=== PATIENT | male | born 1930 | race Caucasian/White ===

== ENCOUNTER 2016-12-01 09:11 | Emergency (ER) | payer MEDICARE, OTHER ==
[2016-12-01 09:49] VITALS: BP 127/67
[2016-12-01] MEDS ORDERED: Iopamidol 755 Mg/ML 75 ML Bottle IV ONE (10:25)
[2016-12-01] MEDS ORDERED: Sodium Chloride 0.9% 1,000 ML IV ONE (10:34)
[2016-12-01] MEDS ORDERED: Sodium Chloride 0.9% 10 ML Syringe FLUSH PRN (12:14)
--- NOTE | 2016-12-02 08:30 | ER ---
DATE SEEN: 12/01/2016 TIME SEEN: The patient was seen at 0915 hours. CHIEF COMPLAINT: Laid on the floor 6 to 10 hours, slipped off the couch, unable to get up, weakness, status post 11/29/2016 fall, left head trauma, left chest contusion, left chest pain, and left shoulder discomfort. HISTORY OF PRESENT ILLNESS: This pleasant 86-year-old man was brought in by son for further evaluation of the left chest pain, which he describes 1/10 in intensity since his injury 11/29/2016. He was seen at 11/29/2016 [facility]. Chest x-ray was done, no evidence for fracture noted. Laceration repair was performed at left lateral orbit, between the orbit and the ear. There is trace of drainage to the left lateral orbit. He is on Levaquin 250 mg daily. The patient denies headache, dizziness, paresis, weakness, paresthesia, vomiting, shortness of breath, abdominal discomfort, nausea, vomiting, diarrhea, back pain, neck pain, and weakness of lower extremities. He notes his upper extremities are weak. SOCIAL HISTORY: . He is nonsmoker. Works for [employer] 40 years. The patient lives in [place]. Three sons and one daughter, all healthy. PAST MEDICAL HISTORY: Myocardial infarction 1972, CABG, hypertension. PREVIOUS SURGERY: Bilateral total hip arthroplasty. The patient denies any compromise in vision. REVIEW OF SYSTEMS: HEENT: Denies headache, sinus drainage. He has blood from the nose, oropharynx pain or discomfort, difficulty with chewing or eating. CARDIORESPIRATORY: Denies recent irregular rhythm. He is known to have atrial fibrillation in the past. He is on a beta-julian. Metoprolol 50 mg daily, but otherwise not using anticoagulants. GI: Denies nausea, vomiting, diarrhea, constipation, or change of bowels. : Denies frequency, urgency, dysuria, or difficulty passing urine. MUSCULOSKELETAL: Weakness, upper extremities. Mild weakness lower extremities just recently after the fall. Denies paresis. PSYCHIATRIC: Denies depression. MEDICATIONS: 1. Metoprolol. 2. Lisinopril. 3. Simvastatin. 4. Brimonidine tartrate eyedrops, both eyes. 5. Bimatoprost (Lumigan 0.01% ophthalmic solution). 6. Levofloxacin 250 mg daily for 2 days. Did not take his medicine today. PHYSICAL EXAMINATION: VITAL SIGNS: Blood pressure 127/67, heart rate 77, respirations 20, oxygen saturation 95%, and temperature is 36.5 degrees centigrade. GENERAL: Alert man, in mild distress. He complains that his chest discomfort is about 1/10 in intensity presently. Otherwise, it was more last night. HEENT: PERRLA intact. Previous cataract surgery noted. Eyegrounds negative. Left facial ecchymosis from the left mid infraorbital region extending to the zygoma and the left lateral temporal region, anti-tragal region. Mild tenderness. No crepitus. No step-off. No lid lag or traction on the eye. EOMs normal. Nares negative. Pharynx without abnormality. No TMJ discomfort. NECK: No bruits in the neck. LUNGS: Clear to auscultation. HEART: S1, S2. No murmur. Left chest wall discomfort 6, 7, 8, and 9 anterior axillary line moderately tender. Left 11, 10, and 9 costochondral discomfort. No crepitus or stepoff. ABDOMEN: Nontender. No guarding. No abdominal discomfort. No megaly. EXTREMITIES: Without edema. Slight weakness to the left and right lower extremities. No pronator drift. He notes his left shoulder because previous shoulder injury, has decreased range of motion, which is not new, it is baseline for him. Hand tax technician bilaterally intact. Laceration to the dorsum of the left hand is Steri-Stripped and the right dorsum of the distal radius laceration is Steri-Stripped. LABORATORY FINDINGS: Troponin negative 0.05. CPK elevated 513. Alkaline phosphatase is low 48, AST slightly high at 35. Sodium 138, potassium 4.1, chloride 109, carbon dioxide 20, BUN 35, creatinine 1.6, GFR estimated 41, BUN and creatinine ratio 21.9, and glucose 130. INR 1.05 and PT 10.6. WBC 12,300, PMNs 81, lymphocytes 11, monos 8, platelets 199,000, and hemoglobin 13.8. DIAGNOSTIC STUDIES: CAT scan, 1 cm hyperdense focus left posterior aspect of the caudate head in the region of the anterior limb of the left internal capsule, suspicious for small intraparenchymal bleed, hyperdense intracranial mass is a secondary consideration. No sign of ischemic infarct, generalized volume loss, minor chronic small-vessel ischemic changes. CT of cervical spine; no acute cervical fracture, degenerative disk and joint disease is present within the cervical spine. See x-ray reports. CT chest; aortic aneurysm ascending aorta 4.6 cm, atherosclerosis noted thoracic aorta, coronary artery disease calcifications, previous sternotomy. No effusion, no mediastinal hematoma. Nonenlarged mediastinal and hilar nodes. 5 cm consolidative opacity within the right upper lung with differential considered lung malignancy, infiltrate, or atelectasis. Status was discussed with Dr. Hilario, , transferred by ambulance to [facility], arrangements made, family informed the patient's status and the findings. DIAGNOSES: 1. Intracerebral bleed. 2. Right upper lung mass/atelectasis, pneumonia. 3. Elevated creatinine 1.6 and BUN 35, chronic kidney disease stage III. 4. Mild leukocytosis without platelet abnormality, no left shift. 5. Mild dehydration. 6. Rhabdomyolysis with creatine kinase 513. Rhabdomyolysis is secondary to lying on the floor for 6 to 10 hours. 7. Urinalysis normal with few bacteria. 8. Right knee abrasion. 9. Left infraorbital and lateral orbit contusion laceration with laceration repair, mild serosanguineous fluid noted left most lateral portion of the laceration repair. 10.No evidence for cervical spine fracture with mild degenerative cervical spine disease. 11.Sternotomy incision, old healed coronary artery bypass graft scar. 12.Previous myocardial infarction, age 71. 13.Hypertension, treated, stable. 14.He is . 15.Family support, daughter and 2 sons present in the emergency department. Arrangements made for transfer by ambulance. /[id number] LUIS/LARS
== END 2016-12-01 12:44 ==
LOC: FB.ED 09:11
DX: S06.360A Traumatic hemorrhage of cerebrum, unspecified, without loss of consciousness, initial encounter (principal); T79.6XXA Traumatic ischemia of muscle, initial encounter; S01.81XA Laceration without foreign body of other part of head, initial encounter; S80.211A Abrasion, right knee, initial encounter; S22.42XA Multiple fractures of ribs, left side, initial encounter for closed fracture; S61.412A Laceration without foreign body of left hand, initial encounter; S51.811A Laceration without foreign body of right forearm, initial encounter; W08.XXXA Fall from other furniture, initial encounter; Y92.9 Unspecified place or not applicable; R91.8 Other nonspecific abnormal finding of lung field; I71.2 Thoracic aortic aneurysm, without rupture; I70.0 Atherosclerosis of aorta; I25.10 Atherosclerotic heart disease of native coronary artery without angina pectoris; I12.9 Hypertensive chronic kidney disease with stage 1 through stage 4 chronic kidney disease, or unspecified chronic kidney disease; N18.4 Chronic kidney disease, stage 4 (severe); Z95.1 Presence of aortocoronary bypass graft; J18.9 Pneumonia, unspecified organism; D72.829 Elevated white blood cell count, unspecified; E86.0 Dehydration; I25.2 Old myocardial infarction; M50.30 Other cervical disc degeneration, unspecified cervical region; Z96.643 Presence of artificial hip joint, bilateral; Z79.899 Other long term (current) drug therapy
CPT/HCPCS: 36415; 70470; 71250; 72125; 80053; 81001; 82550; 84484; 85025; 85610; 93005; 96360; 96361; 99284; 99285; J7040; Q9967

== ENCOUNTER 2019-02-22 18:16 | Emergency (ER) | payer MEDICARE, OTHER ==
[2019-02-22] MEDS ORDERED: traMADol 50 MG Tab PO ONE (18:17)
[2019-02-22] MEDS ORDERED: Ketorolac 30 MG/ML SDV IVPUSH ONE (18:27)
--- NOTE | 2019-02-22 18:32 | EDM.PDOC ---
ED HPI GENERAL MEDICAL PROBLEM - General Chief Complaint: Lower Extremity Injury/Pain Stated Complaint: L HIP PAIN Time Seen by Provider: 02/22/19 18:16 Source of Information: Reports: Patient, Family History Limitations: Reports: No Limitations - History of Present Illness INITIAL COMMENTS - FREE TEXT/NARRATIVE: 88 y,o,w,m came to the ED one day after he pain at his left inguinal area when walking home from [employer]. pt felt sudden stabbing pain at his left inguinal area , which is getting worse when extending his left leg, no direct trauma. No dysuria. Pt had a left inguinal hernia repair in the distant past. No N/V/D, no CP or SOB or any other acute med issues. BP 135/56 RR 18 Pulse ox 95% on RA Pulse 89 Temp 36.8 Onset Date: 02/21/19 Onset Time: 09:00 Duration: Day(s):, Getting Worse, Intermittent Location: Reports: Pelvis (left groin, radiating to left lower extremity) Quality: Reports: Ache, Burning, Dull, Pressure Severity: Moderate Improves with: Reports: Rest Worsens with: Reports: Movement Context: Reports: Other Associated Symptoms: Reports: No Other Symptoms - Related Data Allergies Allergy/AdvReac Type Severity Reaction Status Date / Time No Known Allergies Allergy Verified 12/01/16 09:58 Home Meds: Home Meds Bimatoprost [LUMIGAN 0.01% Ophth Soln] 1 drop EYEBOTH DAILY 12/01/16 [History] Brimonidine Tartrate [Alphagan P 0.1% Ophth Soln] 1 drop EYEBOTH TID 12/01/16 [ History] Lisinopril 10 mg PO DAILY 12/01/16 [History] Metoprolol Tartrate 50 mg PO DAILY 12/01/16 [History] Simvastatin [Zocor] 80 mg PO BEDTIME 12/01/16 [History] Past Medical History HEENT History: Reports: Impaired Vision Cardiovascular History: Reports: Afib, Bypass, [place] - Past Surgical History Musculoskeletal Surgical History: Reports: Hip Replacement, Other (See Below) Social & Family History - Caffeine Use Caffeine Use: Reports: Coffee Review of Systems - Review of Systems Review Of Systems: See Below Constitutional: Reports: No Symptoms Eyes: Reports: No Symptoms Ears: Reports: No Symptoms Nose: Reports: No Symptoms Mouth/Throat: Reports: No Symptoms Respiratory: Reports: No Symptoms Cardiovascular: Reports: No Symptoms GI/Abdominal: Reports: Other (left lower abd. pain) Genitourinary: Reports: No Symptoms Musculoskeletal: Reports: Other (left lower abd/pelvic pain) Skin: Reports: No Symptoms Neurological: Reports: No Symptoms Psychiatric: Reports: No Symptoms ED EXAM, GENERAL - Physical Exam Exam: See Below Exam Limited By: No Limitations General Appearance: Alert, WD/WN, Moderate Distress Eye Exam: Bilateral Eye: Normal Inspection Ears: Normal External Exam Ear Exam: Bilateral Ear: Auricle Normal Nose: Normal Inspection, Normal Mucosa, No Blood Throat/Mouth: Normal Inspection, Normal Lips, Normal Voice, No Airway Compromise Head: Atraumatic, Normocephalic Neck: Normal Inspection, Supple, Non-Tender Respiratory/Chest: No Respiratory Distress, Lungs Clear, Normal Breath Sounds, Chest Non-Tender Cardiovascular: Normal Peripheral Pulses, Regular Rate, Rhythm, No Edema, No Gallop, No Murmur Peripheral Pulses: 2+: Femoral (L) GI/Abdominal: Normal Bowel Sounds, Soft, Pelvis Stable, Tender (left lower groin ) (Male) Exam: Hernia (tenderness left inguinal area) Rectal (Males) Exam: Deferred Back Exam: Normal Inspection, Full Range of Motion Extremities: Normal Inspection, Limited Range of Motion (of left lower extremity due to pain at the left inguinal legament when flexing left hip. ) Neurological: Alert, Oriented, CN II-XII Intact, Normal Cognition, Abnormal Gait (because of left groin pain) Psychiatric: Normal Affect, Normal Mood Skin Exam: Warm, Dry, Intact, Normal Color, No Rash Lymphatic: No Adenopathy Course - Vital Signs Text/Narrative:: 88 y,o,w,m came to the ED one day after he pain at his left inguinal area when walking home from [employer]. pt felt sudden stabbing pain at his left inguinal area , which is getting worse when extending his left leg, no direct trauma. No dysuria. Pt had a left inguinal hernia repair in the distant past. No N/V/D, no CP or SOB or any other acute med issues. BP 135/56 RR 18 Pulse ox 95% on RA Pulse 89 Temp 36.8 PE: WNWD W M with left inguinal pain Imaging: Pending Labs: Pending Impression: Left inguinal pain DDX: direct / indirect inguinal hernia, scrotal hernia. impingement of a femoral nerve, musculoskeletal. Lymphadenopathy Tx: Toradol Reexam: Improved Pt was signed out to Dr. Bloom at 7 pm due to shift changes pending Labs and Imaging studies Last Recorded V/S: Last Vital Signs Temp 36.7 C 02/22/19 18:20 Pulse 81 02/22/19 19:30 Resp 18 02/22/19 19:30 BP 143/59 H 02/22/19 19:30 Pulse Ox 95 02/22/19 19:30 - Orders/Labs/Meds Orders: Active Orders 24 hr Category Date Time Status Abdomen Pelvis w Cont [CT] Stat Exams 02/22/19 18:25 Taken Labs: Laboratory Tests 02/22/19 02/22/19 02/22/19 Range/Units 18:40 18:40 18:40 WBC 19.6 H (4.5-12.0) X10-3/uL RBC 4.50 (4.30-5.75) x10(6)uL Hgb 14.8 (13.5-17.8) g/dL Hct 42.3 (30.0-51.3) % MCV 93.9 (80-96) fL MCH 32.9 (27.7-33.6) pg MCHC 35.0 (32.2-35.4) g/dL RDW 12.6 (11.5-15.5) % Plt Count 195 (125-369) X10(3)uL MPV 7.9 (7.4-10.4) fL Add Manual Diff Yes Neutrophils % (Manual) 82 (46-82) % Band Neutrophils % 6 (0-6) % Lymphocytes % (Manual) 7 L (13-37) % Monocytes % (Manual) 5 (4-12) % PT 9.9 (8.7-11.1) INR 1.02 (0.89-1.13) Sodium 139 (135-145) mmol/L Potassium 4.4 (3.5-5.3) mmol/L Chloride 105 (100-110) mmol/L Carbon Dioxide 24 (21-32) mmol/L BUN 31 H (7-18) mg/dL Creatinine 1.7 H (0.70-1.30) mg/dL Est Cr Clr Drug Dosing TNP Estimated GFR (MDRD) 38 L (>60) BUN/Creatinine Ratio 18.2 (9-20) Glucose 121 H (80-116) mg/dL Calcium 8.9 (8.6-10.2) mg/dL Meds: Medications Discontinued Medications Generic Name Dose Route Start Last Admin Trade Name Trey PRN Reason Stop Dose Admin Ketorolac Tromethamine 15 mg 02/22/19 18:27 02/22/19 18:52 Toradol IVPUSH 02/22/19 18:28 15 mg ONETIME ONE Administration Departure - Departure Time of Disposition: 21:00 Disposition: Still A Patient 30 Condition: Fair Clinical Impression: Groin pain Qualifiers: Laterality: left Qualified Code(s): R10.32 - Left lower quadrant pain - Discharge Information Instructions: Tramadol tablets, Muscle Strain, [id number] Referrals: Gabriele Madrigal MD [Primary Care Provider] - Forms: ED Department Discharge Additional Instructions: Ice and elevate. Return to ER with worse symptoms. - My Orders Last 24 Hours: My Active Orders 02/22/19 18:25 Abdomen Pelvis w Cont [CT] Stat - Assessment/Plan Last 24 Hours: My Active Orders 02/22/19 18:25 Abdomen Pelvis w Cont [CT] Stat
[2019-02-22 20:00] VITALS: BP 143/59; PULSE 81
--- NOTE | 2019-02-24 08:23 | ER ---
DATE SEEN: 02/22/2019 ADDENDUM: Please note that I saw this patient after Dr. Coronel had seen him. He complains of pain in the left groin that started yesterday on and off, sharp, radiates down to the leg. No trauma. He did walk to sabianism on Friday. REVIEW OF SYSTEMS: No urinary symptoms. No scrotal pain, nausea, vomiting, or diarrhea. Denies constipation. ALLERGIES: None. PAST MEDICAL HISTORY: Hyperlipidemia, hypertension. PHYSICAL EXAMINATION: VITAL SIGNS: Blood pressure 143/59 and pulse is 89. GENITALIA: Left groin showed no obvious swelling. There is tenderness to palpation of the inguinal region. No visible bulge External genitalia are normal to inspection. No evidence of a hernia. LABORATORY DATA: White cell count 19.6, creatinine 1.7. CT of the abdomen and pelvis without contrast showed no obvious source of the pain and no hernia. IMPRESSIONS: Left inguinal pain.Lymphocytosis PLAN: Tramadol 50 mg b.i.d. p.r.n., ice or ibuprofen, rest, and follow up with Dr. Madrigal in the next 1 to 2 days for consideration of alternative diagnosis if symptoms persist /[id number] GI/LARS TREVINO
== END 2019-02-22 20:55 | disposition home or self-care (01) ==
LOC: FB.ED 18:16
DX: R10.32 Left lower quadrant pain (principal); D72.820 Lymphocytosis (symptomatic); I10 Essential (primary) hypertension; I25.2 Old myocardial infarction; E78.5 Hyperlipidemia, unspecified; I48.91 Unspecified atrial fibrillation; Z95.1 Presence of aortocoronary bypass graft; Z79.899 Other long term (current) drug therapy
CPT/HCPCS: 36415; 74177; 80048; 85025; 85610; 96374; 99283; 99284; A9270; J1885

== ENCOUNTER 2019-02-23 12:30 | Observation (INO) | payer OTHER, MEDICARE ==
[2019-02-23] MEDS ORDERED: Sodium Chloride 0.9% 10 ML Syringe FLUSH PRN (13:13)
[2019-02-23] MEDS ORDERED: Brimonidine 0.1% Ophth Soln 5 ML Bottle EYEBOTH SCH (14:00)
[2019-02-23] MEDS ORDERED: Brimonidine 0.2% Ophth Soln 5 ML Bottle EYEBOTH SCH (14:30)
[2019-02-23] MEDS: Acetaminophen/HYDROcodone 325-5 MG Tab PO PRN ×2 (16:01→21:16)
--- NOTE | 2019-02-23 16:27 | HP ---
ADMISSION DATE: 02/23/2019 INFORMANT: History is from the patient and his daughter as well as Richard Jordan, his PA at [facility] in [place]. CHIEF COMPLAINT: Inguinal pain. HISTORY OF PRESENT ILLNESS: Mr. James is a very vigorous, healthy 88-year- old man who was in his normal state of health until Friday 2 days ago. He was walking home from [employer] and noticed a mild discomfort in the left groin. By the next day, he developed a severe sharp pain in the groin, painful with movements, especially of his left leg. He was seen in the emergency room and evaluation done. Laboratory tests included a white count of 19,600 with 82 segs, 6 bands, 7 lymphocytes, and 5 monos. BUN 31, creatinine 1.7. Urinalysis not done. He was discharged to home slightly more comfortable and asked to have followup in the clinic. He saw Richard Jordan in [facility] today, who repeated his white count and found it to be up to 25,000. Osman has not had any fever, chills, sweats, cough, dyspnea, or chest pain. Chest x-ray also done at the [facility] was read as right basilar infiltrate, possible pneumonia. PAST MEDICAL HISTORY: He has been quite healthy. He is status post bilateral total hip arthroplasties. He has had a previous left inguinal herniorrhaphy. He has chronic essential hypertension, hyperlipidemia, and glaucoma. He is also status post coronary artery bypass graft and had a past history of atrial fibrillation. MEDICATIONS: 1. Simvastatin 40 mg daily. 2. Metoprolol tartrate 25 mg b.i.d. 3. Lisinopril 10 mg daily. 4. Alphagan 1% one drop both eyes t.i.d. 5. Lumigan 0.01% one drop both eyes daily. ALLERGIES: None. HABITS: Nonsmoker and nondrinker. FAMILY AND SOCIAL HISTORY: The patient is accompanied by his daughter today. He lives by himself and is very active in his house doing a lot of mowing, walking, etc. REVIEW OF SYSTEMS: GENERAL: No seizure, syncope, or recent significant weight change. SKIN: Negative for rash. HEENT: No recent changes in hearing or vision. No sore throat or URI. No cough or purulent sputum. CARDIOVASCULAR: No chest pain. No dyspnea. No palpitations. ABDOMEN: No abdominal pain, nausea, change in bowel or bladder habits. GENITOURINARY: No hematuria or urgency. SKIN: No swelling or skin rash. PSYCHIATRIC: No mood instability or temperature intolerance. PHYSICAL EXAMINATION: GENERAL: He is alert, comfortable, and healthy, looks much younger than his age. VITAL SIGNS: Blood pressure 143/59, pulse 81 and regular, respirations normal, temperature 98.1, and O2 saturation 95% on room air. Weight 152 pounds reported by the patient. SKIN: Anicteric. Warm, dry without rash. HEENT: Show TMs to be clear. Pupils are equal and reactive. Oropharynx clear. NECK: Supple. Thyroid normal. LUNGS: Clear to the bases with excellent air movement. I could hear no rales at either side. HEART: Regular without murmur or gallop. ABDOMEN: Normal bowel sounds. Soft and nontender. No mass or organomegaly. Left groin exam reveals a fingertip-sized defect in the left groin and pressure here reproduces his pain. No bulge or herniation of contents is palpable. He has decreased range of motion of both hips, but internal and external rotation of the left hip does seem to reproduce his hip pain. EXTREMITIES: Show good pulses. No edema. NEUROLOGIC: Normal with the limitation of slightly decreased hip range of motion on the left. LABORATORY DATA: As mentioned today, white count was 25,000. Differential was not done. Pending labs included repeat CBC with differential, sedimentation rate, and CRP. ASSESSMENT: 1. Left inguinal pain, question femoral hernia, possible infected hip prosthesis. 2. Chronic essential hypertension. 3. Hyperlipidemia. 4. Glaucoma. 5. History of prostheses, bilateral hips. PLAN: Labs drawn and pending. I will ultrasound his femoral area to look for hernia. I have also asked Dr. Cabrera to consult on this and we will consider investigation for potential infected hip prosthesis if no hernias felt to be present. /[id number] RO/MODL
--- NOTE | 2019-02-23 17:25 | PCM.CONS ---
H&P History of Present Illness - General Date of Service: 02/23/19 Admit Problem/Dx: Admission Diagnosis/Problem Admission Diagnosis/Problem Pain Source of Information: Patient, Family, Old Records History Limitations: Reports: No Limitations - History of Present Illness Onset of Symptoms: Reports: Sudden Duration of Symptoms: Reports: Day(s): (2), Getting Worse Location: Reports: Lower Extremity, Left (groin) Quality: Reports: Sharp, Stabbing Improves with: Reports: None Worsens with: Reports: Movement Associated Symptoms: Reports: No Other Symptoms. Denies: Nausea/Vomiting - Related Data Allergies/Adverse Reactions: Allergies Allergy/AdvReac Type Severity Reaction Status Date / Time No Known Allergies Allergy Verified 12/01/16 09:58 Home Medications: Home Meds Bimatoprost [LUMIGAN 0.01% Ophth Soln] 1 drop EYEBOTH BEDTIME 12/01/16 [History] Brimonidine Tartrate [Alphagan P 0.1% Ophth Soln] 1 drop EYEBOTH TID 12/01/16 [ History] Lisinopril 5 mg PO DAILY 12/01/16 [History] Metoprolol Tartrate 25 mg PO BID 12/01/16 [History] Simvastatin [Zocor] 40 mg PO BEDTIME 12/01/16 [History] Vit A/Vit C/Vit E/Zinc/Copper [Preservision] 1 each PO DAILY 02/23/19 [History] Past Medical History HEENT History: Reports: Impaired Vision Cardiovascular History: Reports: Afib, Bypass, [place] Respiratory History: Reports: None Gastrointestinal History: Reports: None Genitourinary History: Reports: None Neurological History: Reports: None Psychiatric History: Reports: None Endocrine/Metabolic History: Reports: None Hematologic History: Reports: Blood Transfusion(s) Immunologic History: Reports: None Oncologic (Cancer) History: Reports: None Dermatologic History: Reports: None - Past Surgical History Musculoskeletal Surgical History: Reports: Hip Replacement, Other (See Below) Other Musculoskeletal Surgeries/Procedures:: bilat hip replacement Social & Family History - Family History Family Medical History: Noncontributory - Tobacco Use Smoking Status *Q: Never Smoker - Caffeine Use Caffeine Use: Reports: Coffee - Recreational Drug Use Recreational Drug Use: No H&P Review of Systems - Review of Systems: Review Of Systems: See Below General: Reports: Fever, Chills HEENT: Reports: No Symptoms Pulmonary: Reports: No Symptoms Cardiovascular: Reports: No Symptoms Gastrointestinal: Reports: No Symptoms. Denies: Abdominal Pain, Nausea, Vomiting Genitourinary: Reports: No Symptoms Musculoskeletal: Reports: Other (severe pain in left groin) Exam - Exam Exam: See Below - Vital Signs Weight: 154.4 kg - Exam General: Alert, Oriented Lungs: Clear to Auscultation, Normal Respiratory Effort Cardiovascular: Regular Rate, Regular Rhythm GI/Abdominal Exam: Normal Bowel Sounds, Soft, Non-Tender. No: Hernia, Mass (Male) Exam: No Hernia, Normal Inspection. No: Inguinal Lymphadenopathy, Scrotum Tenderness (L), Scrotum Tenderness (R) - Patient Data Lab Results Last 24 hrs: Laboratory Results - last 24 hr 02/23/19 02/23/19 Range/Units 14:25 14:25 WBC 25.8 H (4.5-12.0) X10-3/uL RBC 4.11 L (4.30-5.75) x10(6)uL Hgb 13.9 (13.5-17.8) g/dL Hct 38.5 (30.0-51.3) % MCV 93.6 (80-96) fL MCH 33.8 H (27.7-33.6) pg MCHC 36.1 H (32.2-35.4) g/dL RDW 12.7 (11.5-15.5) % Plt Count 172 (125-369) X10(3)uL MPV 7.9 (7.4-10.4) fL Add Manual Diff Yes Neutrophils % (Manual) 87 H (46-82) % Band Neutrophils % 5 (0-6) % Lymphocytes % (Manual) 4 L (13-37) % Monocytes % (Manual) 4 (4-12) % ESR 6 (0-15) mm/hr C-Reactive Protein 10.6 H* (0.5-0.9) mg/dL Result Diagrams: 02/23/19 14:25 Imaging Impressions Last 24 hrs: CT scan has artifact so left inguinal region is not clearly seen Left groin US today shows a circular area next to femoral vessels Consult PN Assessment/Plan Procedures: Procedures ASSAY OF CK (CPK) (12/01/16) ASSAY OF TROPONIN QUANT (12/01/16) COMPLETE CBC W/AUTO DIFF WBC (12/01/16) COMPREHEN METABOLIC PANEL (12/01/16) CT HEAD/BRAIN W/O & W/DYE (12/01/16) CT NECK SPINE W/O DYE (12/01/16) CT THORAX W/O DYE (12/01/16) ELECTROCARDIOGRAM TRACING (12/01/16) EMERGENCY DEPT VISIT (12/01/16) EMERGENCY DEPT VISIT (12/01/16) HYDRATE IV INFUSION ADD-ON (12/01/16) HYDRATION IV INFUSION INIT (12/01/16) PROTHROMBIN TIME (12/01/16) ROUTINE VENIPUNCTURE (12/01/16) URINALYSIS AUTO W/SCOPE (12/01/16) Problem List Initiated/Reviewed/Updated: Yes My Orders Last 24 Hours: Recommend expl laprascopic exam to rule out left hernia and repair if present. Increasing WBC is worrisome and there is no other obvious explanation. Patient and family agree to proceed
[2019-02-23] MEDS ORDERED: Lactated Ringers 1,000 ML IV ONE (17:40)
[2019-02-23] MEDS ORDERED: Ketorolac 30 MG/ML SDV IVPUSH ONE (17:40)
[2019-02-23] MEDS ORDERED: Rocuronium 50 MG/5 ML Vial IV ONE (17:40)
[2019-02-23] MEDS ORDERED: Midazolam 1 MG/ML 2 ML SDV IV ONE (17:40)
[2019-02-23] MEDS ORDERED: ePHEDrine 50 MG/ML SDV IV ONE (17:40)
[2019-02-23] MEDS ORDERED: ceFAZolin 1 GM Vial IV ONE (17:40)
[2019-02-23] MEDS ORDERED: Succinylcholine 200 MG/10 ML MDV IV ONE (17:40)
[2019-02-23] MEDS ORDERED: fentaNYL 100 MCG/2 ML SDV IV ONE (17:40)
[2019-02-23] MEDS ORDERED: Propofol 200 MG/20 ML SDV IV ONE (17:40)
--- NOTE | 2019-02-23 18:41 | PCM.OPNOTE ---
- General Post-Op/Procedure Note Date of Surgery/Procedure: 02/23/19 Operative Procedure(s): Expl Laprascope; removal of infarcted epiploic Appendage Findings: Above Pre Op Diagnosis: R Groin Pain Post-Op Diagnosis: Same Anesthesia Technique: General ET Tube Primary Surgeon: Guillermo Cabrera Anesthesia Provider: Felicia Salgado Pathology: Epiploic Appendage Complications: None Condition: Good
[2019-02-23] MEDS ORDERED: Acetaminophen/HYDROcodone 325-5 MG Tab PO PRN (18:47)
[2019-02-23] MEDS ORDERED: Morphine 2 MG/ML Syringe IVPUSH PRN (18:47)
[2019-02-23] MEDS ORDERED: LUMIGAN EYE DROPS EYEBOTH SCH (21:00)
[2019-02-23] MEDS ORDERED: SIMVASTATIN 80 MG PO SCH (21:00)
[2019-02-23] MEDS: BRIMONIDINE 0.1% EYEBOTH SCH (21:08)
[2019-02-23] MEDS: METOPROLOL TARTRATE 50 MG PO SCH (21:12)
--- NOTE | 2019-02-23 23:24 | OR ---
DATE OF OPERATION: 02/23/2019 SURGEON: Guillermo Cabrera MD PREOPERATIVE DIAGNOSIS: Left groin pain with leukocytosis. POSTOPERATIVE DIAGNOSIS: Infarcted epiploic appendage. PROCEDURE: Exploratory laparoscopy with removal of infarcted epiploic appendage. ANESTHESIA: General. DESCRIPTION OF PROCEDURE: The patient was brought to the operating room, where general endotracheal anesthesia was administered. His abdomen was prepped with ChloraPrep and draped sterilely. Prior to intubation, I did roll him onto his right side and his back and buttocks, groin, scrotum, and all visible areas of the skin appeared normal without any cellulitis or palpable masses. Even when the patient was asleep, I was finally able to evaluate his groin area well and was unable to feel any obvious inguinal or femoral hernia. His abdomen was prepped with ChloraPrep and draped sterilely. An infraumbilical incision was made and extended into the peritoneal cavity without difficulty. The Brent cannulator was introduced and pneumoperitoneum obtained. A 5 mm 30-degree camera was used to inspect the pelvis after he was placed in Trendelenburg position. Both inguinal areas appeared normal. I did place 2 more 5 mm trocars inferiorly to move the small bowel and omentum. At that time, I visualized an infarcted epiploic appendage approximately 8 mm in diameter that was again adjacent to the left inguinal canal. No hernias or other abnormalities such as diverticulitis were noted. The epiploic appendage did peel off the surrounding mesocolon and will be sent for pathology review. No bleeding occurred. The remaining exploration revealed normal peritoneal, omental, and bowel surfaces. The ports were removed under direct vision and remained hemostatic. Umbilical fascia was closed with [id number] 0 Vicryl. Skin was closed with 4-0 Vicryl subcuticular sutures. Benzoin and Steri-Strips were placed, and Band- Aids applied. The patient tolerated the procedure well and returned to recovery in stable condition. ESTIMATED BLOOD LOSS: None. /[id number] RUBENS/LARS
[2019-02-24] MEDS: Lactated Ringers 1,000 ML IV SCH ×2 (00:02→10:04)
[2019-02-24] MEDS: Acetaminophen/HYDROcodone 325-5 MG Tab PO PRN ×2 (03:10→07:18)
[2019-02-24] MEDS: BRIMONIDINE 0.1% EYEBOTH SCH ×2 (08:37→13:11)
[2019-02-24] MEDS: METOPROLOL TARTRATE 50 MG PO SCH (08:41)
[2019-02-24] MEDS ORDERED: LISINOPRIL 10 MG PO SCH (09:00)
--- NOTE | 2019-02-24 11:24 | PN ---
DATE SEEN: 02/24/2019 HISTORY: Osman is an 88-year-old who was admitted to the hospital with severe inguinal area pain on the left. CT scan was unrevealing because of his presence of bilateral previous total hip arthroplasties. A followup ultrasound of the inguinal canal was done, suspicious for swelling near the inguinal canal. For this reason, Dr. Cabrera took the patient to surgery. An exploratory laparoscopy revealed an infarcted epiploic appendage that was removed. Osman was examined in his bed this morning. He states he is feeling better. He has been up sitting on edge of the bed and can tell that the left inguinal area pain has improved. PHYSICAL EXAMINATION: VITAL SIGNS: Blood pressure 89/50 consistent with previous blood pressures, temperature 98.5, respirations normal, O2 saturation 90% on room air. Bandages are in place on his abdomen at the laparoscopy port sites. LUNGS: Clear. HEART: Regular. ABDOMEN: Normal bowel sounds. EXTREMITIES: Show no edema. ASSESSMENT: Left inguinal pain secondary to infarcted epiploic appendage, now removed. PLAN: Diet and orders per Dr. Cabrera. He will be able to go home whenever cleared from his surgery. /[id number] EDUARDO/LARS
[2019-02-24] MEDS ORDERED: Ketorolac 15 MG/ML SDV IVPUSH PRN (11:39)
--- NOTE | 2019-02-24 12:41 | PCM.SURGPN ---
- General Info Date of Service: 02/24/19 POD#: 1 Functional Status: Reports: Tolerating Diet, Ambulating (with assist). Denies: Pain Controlled (still significant pain in left hip and groin, unable to flatten left leg) - Review of Systems Gastrointestinal: Reports: No Symptoms. Denies: Abdominal Pain - Patient Data Vitals - Most Recent: Last Vital Signs Temp 98.5 F 02/24/19 08:00 Pulse 72 02/24/19 08:41 Resp 20 02/24/19 08:00 BP 89/50 L 02/24/19 08:42 Pulse Ox 90 L 02/24/19 08:00 Weight - Most Recent: 74.208 kg I&O - Last 24 Hours: Intake & Output 02/23/19 02/24/19 02/24/19 22:59 06:59 14:59 Intake Total 381 678 Output Total 200 Balance 381 478 Lab Results Last 24 Hrs: Laboratory Results - last 24 hr 02/23/19 02/23/19 02/24/19 Range/Units 14:25 14:25 02:55 WBC 25.8 H (4.5-12.0) X10-3/uL RBC 4.11 L (4.30-5.75) x10(6)uL Hgb 13.9 (13.5-17.8) g/dL Hct 38.5 (30.0-51.3) % MCV 93.6 (80-96) fL MCH 33.8 H (27.7-33.6) pg MCHC 36.1 H (32.2-35.4) g/dL RDW 12.7 (11.5-15.5) % Plt Count 172 (125-369) X10(3)uL MPV 7.9 (7.4-10.4) fL Add Manual Diff Yes Neutrophils % (Manual) 87 H (46-82) % Band Neutrophils % 5 (0-6) % Lymphocytes % (Manual) 4 L (13-37) % Monocytes % (Manual) 4 (4-12) % Eosinophils % (Manual) (0-5) % ESR 6 (0-15) mm/hr Sodium (135-145) mmol/L Potassium (3.5-5.3) mmol/L Chloride (100-110) mmol/L Carbon Dioxide (21-32) mmol/L BUN (7-18) mg/dL Creatinine (0.70-1.30) mg/dL Est Cr Clr Drug Dosing mL/min Estimated GFR (MDRD) (>60) BUN/Creatinine Ratio (9-20) Glucose (80-116) mg/dL Calcium (8.6-10.2) mg/dL Total Bilirubin (0.1-1.3) mg/dL AST (5-25) IU/L ALT (12-36) U/L Alkaline Phosphatase (56-112) IU/L C-Reactive Protein 10.6 H* (0.5-0.9) mg/dL Total Protein (6.0-8.0) g/dL Albumin (2.9-4.5) g/dL Globulin g/dL Albumin/Globulin Ratio Urine Color Yellow (YELLOW) Urine Appearance Clear (CLEAR) Urine pH 5.0 (5.0-6.5) Ur Specific [place] 1.020 (1.010-1.025) Urine Protein Negative (NEGATIVE) mg/dL Urine Glucose (UA) Normal (NORMAL) mg/dL Urine Ketones 15 H (NEGATIVE) mg/dL Urine Occult Blood Negative (NEGATIVE) Urine Nitrite Negative (NEGATIVE) Urine Bilirubin Negative (NEGATIVE) Urine Urobilinogen 1 H (NEGATIVE) mg/dL Ur Leukocyte Esterase Small H (NEGATIVE) Urine RBC 0-5 (0-5) Urine WBC 5-10 H (0-5) Ur Squamous Epith Cells Few H (NS,R,O) Amorphous Sediment Few Urine Bacteria Few H (NS) Urine Mucus Few H (NS) 02/24/19 02/24/19 Range/Units 06:15 06:15 WBC 14.7 H (4.5-12.0) X10-3/uL RBC 3.81 L (4.30-5.75) x10(6)uL Hgb 12.5 L (13.5-17.8) g/dL Hct 36.2 (30.0-51.3) % MCV 94.8 (80-96) fL MCH 32.7 (27.7-33.6) pg MCHC 34.4 (32.2-35.4) g/dL RDW 12.8 (11.5-15.5) % Plt Count 139 (125-369) X10(3)uL MPV 8.1 (7.4-10.4) fL Add Manual Diff Yes Neutrophils % (Manual) 92 H (46-82) % Band Neutrophils % 2 (0-6) % Lymphocytes % (Manual) 3 L (13-37) % Monocytes % (Manual) 1 L (4-12) % Eosinophils % (Manual) 2 (0-5) % ESR (0-15) mm/hr Sodium 140 (135-145) mmol/L Potassium 4.4 (3.5-5.3) mmol/L Chloride 107 (100-110) mmol/L Carbon Dioxide 25 (21-32) mmol/L BUN 41 H D (7-18) mg/dL Creatinine 1.9 H (0.70-1.30) mg/dL Est Cr Clr Drug Dosing 23.79 mL/min Estimated GFR (MDRD) 34 L (>60) BUN/Creatinine Ratio 21.6 H (9-20) Glucose 105 (80-116) mg/dL Calcium 8.1 L (8.6-10.2) mg/dL Total Bilirubin 1.0 (0.1-1.3) mg/dL AST 26 H (5-25) IU/L ALT 19 (12-36) U/L Alkaline Phosphatase 54 L (56-112) IU/L C-Reactive Protein (0.5-0.9) mg/dL Total Protein 5.5 L (6.0-8.0) g/dL Albumin 2.7 L (2.9-4.5) g/dL Globulin 2.8 g/dL Albumin/Globulin Ratio 1.0 Urine Color (YELLOW) Urine Appearance (CLEAR) Urine pH (5.0-6.5) Ur Specific [place] (1.010-1.025) Urine Protein (NEGATIVE) mg/dL Urine Glucose (UA) (NORMAL) mg/dL Urine Ketones (NEGATIVE) mg/dL Urine Occult Blood (NEGATIVE) Urine Nitrite (NEGATIVE) Urine Bilirubin (NEGATIVE) Urine Urobilinogen (NEGATIVE) mg/dL Ur Leukocyte Esterase (NEGATIVE) Urine RBC (0-5) Urine WBC (0-5) Ur Squamous Epith Cells (NS,R,O) Amorphous Sediment Urine Bacteria (NS) Urine Mucus (NS) Med Orders - Current: Current Medications Brimonidine Tartrate (Alphagan P 0.1% Ophth Soln) 0 ml EYEBOTH TID DURAN Last Admin: 02/24/19 08:37 Dose: 1 drop Lactated Ringer's (Ringers, Lactated) 1,000 mls @ 100 mls/hr IV ASDIRECTED [facility] Last Admin: 02/24/19 10:04 Dose: 100 mls/hr Ketorolac Tromethamine (Toradol) 15 mg IVPUSH Q6H PRN PRN Reason: Pain Stop: 03/01/19 11:39 Lisinopril (Prinivil) 5 mg PO DAILY [facility] Last Admin: 02/24/19 08:42 Dose: Not Given Metoprolol Tartrate (Lopressor) 25 mg PO BID [facility] Last Admin: 02/24/19 08:41 Dose: Not Given Lumigan Eye Drops 0 each EYEBOTH BEDTIME [facility] Last Admin: 02/23/19 21:09 Dose: 1 each Simvastatin 80mg 40 each PO BEDTIME [facility] Last Admin: 02/23/19 21:10 Dose: 40 each Sodium Chloride (Saline Flush) 10 ml FLUSH ASDIRECTED PRN PRN Reason: Keep Vein Open Discontinued Medications Hydrocodone Bitart/Acetaminophen (Rowdy 325-5 Mg) 1 tab PO Q4H PRN PRN Reason: Pain (moderate 4-6) Last Admin: 02/24/19 07:18 Dose: 1 tab Hydrocodone Bitart/Acetaminophen (Rowdy 325-5 Mg) 1 tab PO Q4H PRN PRN Reason: Pain Morphine Sulfate (Morphine) 1 mg IVPUSH Q1H PRN PRN Reason: Abdominal Pain - Exam Wound/Incisions: Healing Well, Dressing Dry and Intact General: No Acute Distress, Other (slightly confused) Extremities: Leg Pain (in groin, unable to flatten leg) - Problem List Review Problem List Initiated/Reviewed/Updated: Yes - My Orders Last 24 Hours: Active Orders 24 hr Category Date Time Status Admission Status [Patient Status] [ADT] Routine ADT 02/23/19 14:16 Active Height and Weight [RC] DAILY Care 02/23/19 13:13 Active Notify Provider Consults [RC] ASDIRECTED Care 02/23/19 15:57 Active Oxygen Therapy [RC] PRN Care 02/23/19 13:11 Active Pulse Oximetry [RC] PRN Care 02/23/19 13:13 Active Up ad Rosa [RC] ASDIRECTED Care 02/23/19 13:13 Active VTE/DVT Education [RC] Per Unit Routine Care 02/23/19 13:11 Active Vital Signs [RC] QSHIFT Care 02/23/19 13:13 Active Consult to Physician [CONS] Routine Cons 02/23/19 15:57 Ordered Clear Liquid Diet [DIET] Diet 02/24/19 Breakfast Active Extremity Non Vascular Lt [US] Routine Exams 02/23/19 13:39 Taken Brimonidine Tartrate [Alphagan P 0.1% Ophth Soln] Med 02/23/19 21:00 Active 0 ml EYEBOTH TID Ketorolac [Toradol] Med 02/24/19 11:39 Active 15 mg IVPUSH Q6H PRN Lactated Ringers [Ringers, Lactated] 1,000 ml Med 02/23/19 19:00 Active IV ASDIRECTED Lisinopril [Prinivil] Med 02/24/19 09:00 Active 5 mg PO DAILY Metoprolol Tartrate [Lopressor] Med 02/23/19 21:00 Active 25 mg PO BID Non-Formulary Medication [NF Drug] Med 02/23/19 21:00 Active 0 each EYEBOTH BEDTIME Non-Formulary Medication [NF Drug] Med 02/23/19 21:00 Active 40 each PO BEDTIME Sodium Chloride 0.9% [Saline Flush] Med 02/23/19 13:13 Active 10 ml FLUSH ASDIRECTED PRN Saline Lock Insert [OM.PC] Routine Oth 02/23/19 13:13 Ordered Resuscitation Status Routine Resus Stat 02/23/19 13:11 Ordered Medication Orders Brimonidine Tartrate (Alphagan P 0.1% Ophth Soln) 0 ml EYEBOTH TID [facility] Last Admin: 02/24/19 08:37 Dose: 1 drop Admin: 02/23/19 21:08 Dose: 1 drop Lactated Ringer's (Ringers, Lactated) 1,000 mls @ 100 mls/hr IV ASDIRECTED [facility] Last Admin: 02/24/19 10:04 Dose: 100 mls/hr Infusion: 02/24/19 10:02 Dose: 100 mls/hr Admin: 02/24/19 00:02 Dose: 100 mls/hr Ketorolac Tromethamine (Toradol) 15 mg IVPUSH Q6H PRN PRN Reason: Pain Stop: 03/01/19 11:39 Lisinopril (Prinivil) 5 mg PO DAILY [facility] Last Admin: 02/24/19 08:42 Dose: Metoprolol Tartrate (Lopressor) 25 mg PO BID [facility] Last Admin: 02/24/19 08:41 Dose: Admin: 02/23/19 21:12 Dose: 25 mg Lumigan Eye Drops 0 each EYEBOTH BEDTIME [facility] Last Admin: 02/23/19 21:09 Dose: 1 each Simvastatin 80mg 40 each PO BEDTIME [facility] Last Admin: 02/23/19 21:10 Dose: 40 each Sodium Chloride (Saline Flush) 10 ml FLUSH ASDIRECTED PRN PRN Reason: Keep Vein Open - Assessment Assessment (Free Text/Narrative):: Continued left groin pain - Plan Plan (Free Text/Narrative):: Will cont to eval left gring and hip, spok eto Dr Alexandra
[2019-02-24] MEDS ORDERED: Morphine 2 MG/ML Syringe IVPUSH PRN (14:18)
[2019-02-24] MEDS ORDERED: Piperacillin/Tazobactam 3.375 GM in Sodium Chloride 0.9% 50 ML IV SCH (15:15)
[2019-02-24] MEDS ORDERED: Piperacillin/Tazobactam 4.5 GM in Sodium Chloride 0.9% 100 ML IV SCH (15:15)
[2019-02-24] MEDS ORDERED: Sodium Chloride 0.9% 1,000 ML IV SCH (15:30)
[2019-02-24] MEDS ORDERED: Lactated Ringers 1,000 ML IV SCH (15:30)
[2019-02-24 19:42] VITALS: BP 118/56; PULSE 103
--- NOTE | 2019-02-25 08:16 | DISCH ---
DISCHARGE DATE: 02/24/2019 INFORMANT: History is from the patient as well as hospital record. The patient is currently unable to give a good history. PRIMARY FINAL DIAGNOSIS: Acute sepsis secondary to LLL pneumonia. OTHER DIAGNOSES: 1. Subacute left hip pain, suspicious for septic arthritis. 2. Osteoarthritis with previous bilateral total hip arthroplasties. 3. Chronic kidney disease, stage 4. 4. Chronic essential hypertension. OPERATIONS: The patient underwent exploratory laparoscopy by Dr. Cabrera yesterday for severe inguinal area pain looking for possible inguinal hernia, although found was an infarcted epiploic fat pad which was removed. HOSPITAL COURSE: On the day of discharge, the patient suddenly developed chills and confusion consistent with sepsis. Sepsis workup was instituted with drawing of blood cultures, serum lactate level, and he was started on Zosyn and Azactam. Chest x-ray is ordered and pending. Prior to his development of sepsis, arrangements were made for him to be transferred to Dr. Leung at [facility] for further investigation of possible left hip septic arthritis. The patient currently is stable with blood pressures 80 to 90 systolic and O2 saturations greater than 90%. He will have followup back here when his inpatient stay at [facility] is complete. /[id number] EDUARDO/LARS TREVINO
--- NOTE | 2019-03-01 14:56 | US ---
INDICATION: Groin pain on the left, question femoral hernia. ULTRASOUND EXTREMITY, NONVASCULAR, LEFT GROIN: Multiple ultrasonic images were obtained 02/23/19 in the left inguinal area. The possibility of a tiny hernia of 8 mm size in the left inguinal area is suggested. No included bowel was seen. Study was otherwise unremarkable. MTDD
== END 2019-02-24 16:22 | disposition critical access hospital (66) ==
LOC: FB.MS 12:30 → INTOOBSV 12:30
PROVIDERS: ADMIT Family Medicine; ATTEND Family Medicine
DX: K55.049 Acute infarction of large intestine, extent unspecified (principal); A41.9 Sepsis, unspecified organism; J18.1 Lobar pneumonia, unspecified organism; I48.91 Unspecified atrial fibrillation; I25.2 Old myocardial infarction; I12.9 Hypertensive chronic kidney disease with stage 1 through stage 4 chronic kidney disease, or unspecified chronic kidney disease; N18.4 Chronic kidney disease, stage 4 (severe); E78.00 Pure hypercholesterolemia, unspecified; H40.9 Unspecified glaucoma; M25.552 Pain in left hip; Z96.643 Presence of artificial hip joint, bilateral; Z95.1 Presence of aortocoronary bypass graft; Z79.899 Other long term (current) drug therapy
CPT/HCPCS: 00840; 36415; 49329; 71045; 73502; 76881; 80053; 81001; 83605; 85025; 85651; 86140; 87040; 87077; 87186; 88304; 96374; 96375; A9270; G0378; G0379; J0330; J0690; J1885; J2250; J2270; J2543; J2704; J3010; J3490; J7050; J7120; 99217; 99218

== ENCOUNTER 2019-03-04 08:42 | Inpatient (IN) | payer MEDICARE, OTHER ==
[2019-03-04] MEDS: traMADol 50 MG Tab PO PRN ×2 (12:55→21:06)
[2019-03-04] MEDS: Brimonidine 0.2% Ophth Soln 5 ML Bottle EYEBOTH SCH ×2 (15:08→21:07)
[2019-03-04] MEDS: Enoxaparin 40 MG/0.4 ML Syringe SUBCUT SCH (15:08)
[2019-03-04] MEDS: Acetaminophen 325 MG Tab PO PRN ×2 (16:43→23:43)
--- NOTE | 2019-03-04 19:40 | PCM.HP ---
H&P History of Present Illness - General Date of Service: 03/04/19 Admit Problem/Dx: Admission Diagnosis/Problem Admission Diagnosis/Problem Septic arthritis - History of Present Illness Initial Comments - Free Text/Narative: Osman is an 88-year-old male admitted to [facility] bed for IV antibiotics and physical rehab. He was here a couple weeks ago. He had left hip pain that eventually turned out to be septic arthritis, MRSA. He underwent arthrotomy debridement on 02/26/2019 and is now on long-term antibiotics. On his past medical history, he endorses coronary artery disease, hypertension, hyperlipidemia and glaucoma. He's also had bilateral hip replacements. He denies any fever chest pain or shortness of breath today.He has minimal pain today. - Related Data Allergies/Adverse Reactions: Allergies Allergy/AdvReac Type Severity Reaction Status Date / Time No Known Allergies Allergy Verified 03/04/19 13:57 Home Medications: Home Meds Bimatoprost [LUMIGAN 0.01% Ophth Soln] 1 drop EYEBOTH BEDTIME 12/01/16 [History] Brimonidine Tartrate [Alphagan P 0.1% Ophth Soln] 1 drop EYEBOTH TID 12/01/16 [ History] Metoprolol Tartrate 25 mg PO BID 12/01/16 [History] Simvastatin [Zocor] 40 mg PO BEDTIME 12/01/16 [History] Vit A/Vit C/Vit E/Zinc/Copper [Preservision] 1 each PO BID 02/23/19 [History] Acetaminophen [Tylenol] 650 mg PO Q6H PRN 03/04/19 [History] Enoxaparin [Lovenox] 40 mg SUBCUT DAILY 03/04/19 [History] Rifampin [Rifadin] 600 mg PO DAILY 03/04/19 [History] Sennosides/Docusate Sodium [Senna-S] 2 tab PO BID 03/04/19 [History] amLODIPine Besylate [Amlodipine Besylate] 10 mg PO DAILY 03/04/19 [History] traMADol [Ultram] 50 mg PO Q6H PRN 03/04/19 [History] Past Medical History HEENT History: Reports: Cataract, Impaired Vision Cardiovascular History: Reports: Afib, Bypass, [place] Respiratory History: Reports: SOB Gastrointestinal History: Reports: Other (See Below) Other Gastrointestinal History: RIGHT INGUINAL HERNIA Genitourinary History: Reports: None Musculoskeletal History: Reports: Arthritis, Other (See Below) Other Musculoskeletal History: ARTHRITIS IN BOTH HANDS. Neurological History: Reports: TIA Psychiatric History: Reports: None Endocrine/Metabolic History: Reports: None Hematologic History: Reports: Blood Transfusion(s) Immunologic History: Reports: None Oncologic (Cancer) History: Reports: None Dermatologic History: Reports: None - Infectious Disease History Infectious Disease History: Reports: Chicken Pox, Diphtheria, Measles, MRSA, Mumps - Past Surgical History Head Surgeries/Procedures: Reports: None HEENT Surgical History: Reports: Cataract Surgery, Tonsillectomy Cardiovascular Surgical History: Reports: None, Coronary Artery Bypass, Other ( See Below) Other Cardiovascular Surgeries/Procedures: TRIPLE BYPASS 12 YEARS AGO. [place] 2006. ECHO ON HIS HEART 2019 Respiratory Surgical History: Reports: None GI Surgical History: Reports: Appendectomy, Colonoscopy, Hernia, Inguinal Musculoskeletal Surgical History: Reports: Hip Replacement, Other (See Below) Other Musculoskeletal Surgeries/Procedures:: bilat hip replacement Social & Family History - Family History Family Medical History: Noncontributory - Caffeine Use Caffeine Use: Reports: Coffee H&P Review of Systems - Review of Systems: Review Of Systems: ROS reveals no pertinent complaints other than HPI. Exam - Exam Exam: See Below - Vital Signs Vital Signs: Last Vital Signs Temp 97.6 F 03/04/19 12:10 Pulse 70 03/04/19 12:10 Resp 20 03/04/19 12:10 BP 149/65 H 03/04/19 12:10 Pulse Ox 96 03/04/19 12:10 Weight: 83.659 kg - Exam General: Alert, Oriented HEENT: PERRLA Neck: Supple Lungs: Clear to Auscultation Cardiovascular: Regular Rate GI/Abdominal Exam: Normal Bowel Sounds Skin: Warm, Dry Neurological: Cranial Nerves Intact - Problem List (1) MRSA bacteremia SNOMED Code(s): 17942116716903689 ICD Code: R78.81 - BACTEREMIA Status: Acute Current Visit: Yes (2) Septic arthritis of hip SNOMED Code(s): 461764312 ICD Code: M00.9 - PYOGENIC ARTHRITIS, UNSPECIFIED Status: Acute Current Visit: Yes Qualifiers: Septic arthritis organism: staphylococcal (3) Weakness SNOMED Code(s): 17251274 ICD Code: R53.1 - WEAKNESS Status: Acute Current Visit: Yes (4) HTN (hypertension) SNOMED Code(s): 33609587 ICD Code: I10 - ESSENTIAL (PRIMARY) HYPERTENSION Status: Chronic Current Visit: Yes Qualifiers: Hypertension type: essential hypertension Qualified Code(s): I10 - Essential (primary) hypertension (5) CAD (coronary artery disease) SNOMED Code(s): 12661879 ICD Code: I25.10 - ATHSCL HEART DISEASE OF [place] CORONARY ARTERY W/O ANG PCTRS Status: Acute Current Visit: Yes Problem List Initiated/Reviewed/Updated: Yes Orders Last 24hrs: Active Orders 24 hr Category Date Time Status Patient Status [ADT] Routine ADT 03/04/19 12:34 Active Activity as Tolerated [RC] .Routine Care 03/04/19 13:05 Active Height and Weight [RC] WEEKLY Care 03/04/19 12:34 Active Oxygen Therapy [RC] PRN Care 03/04/19 12:34 Active Up With Assistance [RC] ASDIRECTED Care 03/04/19 12:34 Active Vital Signs [RC] 08 Care 03/04/19 12:34 Active OT Evaluation and Treatment [CONS] Routine Cons 03/04/19 12:34 Active PT Evaluation and Treatment [CONS] Routine Cons 03/04/19 12:34 Active Regular Diet [DIET] Diet 03/04/19 Dinner Active CREATININE W/GFR [CHEM] [facility] 03/08/19 05:10 Ordered CREATININE W/GFR [CHEM] [facility] Lab 03/11/19 05:10 Ordered CREATININE W/GFR [CHEM] [facility] 03/15/19 05:10 Ordered CREATININE W/GFR [CHEM] [facility] Lab 03/18/19 05:10 Ordered CREATININE W/GFR [CHEM] [facility] Lab 03/22/19 05:10 Ordered CREATININE W/GFR [CHEM] [facility] Lab 03/25/19 05:10 Ordered CREATININE W/GFR [CHEM] [facility] Lab 03/29/19 05:10 Ordered CREATININE W/GFR [CHEM] [facility] Lab 04/01/19 05:10 Ordered CREATININE W/GFR [CHEM] [facility] Lab 04/05/19 05:10 Ordered CREATININE W/GFR [CHEM] [facility] Lab 04/08/19 05:10 Ordered CRP [C-REACTIVE PROTEIN] [CHEM] Q7D Lab 03/08/19 05:10 Ordered CRP [C-REACTIVE PROTEIN] [CHEM] Q7D Lab 03/15/19 05:10 Ordered CRP [C-REACTIVE PROTEIN] [CHEM] Q7D Lab 03/22/19 05:10 Ordered CRP [C-REACTIVE PROTEIN] [CHEM] Q7D Lab 03/29/19 05:10 Ordered CRP [C-REACTIVE PROTEIN] [CHEM] Q7D Lab 04/05/19 05:10 Ordered VANCOMYCIN TROUGH [CHEM] Timed Lab 03/05/19 08:30 Ordered Acetaminophen [Tylenol] Med 03/04/19 12:36 Active 650 mg PO Q6H PRN Brimonidine [Alphagan 0.2% Ophth Soln] Med 03/04/19 14:00 Active 0 ml EYEBOTH TID Docusate Sodium/Sennosides [Senna Plus] Med 03/04/19 21:00 Active 2 tab PO BID PRN Enoxaparin [Lovenox] Med 03/04/19 14:00 Active 40 mg SUBCUT Q24H Heparin Sodium [Heparin Lock Flush 100 Units/ML] Med 03/04/19 13:48 Active 300 units FLUSH ASDIRECTED PRN Heparin Sodium [Heparin Lock Flush 100 Units/ML] Med 03/05/19 10:30 Active 300 units FLUSH Q24H Latanoprost [Xalatan 0.005% Ophth Soln] Med 03/04/19 21:00 Active 0 ml EYEBOTH BEDTIME Lutein/Min/Vit C/Vit E Acetate [Ocuvite Lutein] Med 03/04/19 21:00 Active 1 each PO BID Metoprolol Tartrate [Lopressor] Med 03/04/19 21:00 Active 25 mg PO BID Pharmacy to Dose - Vancomycin Med 03/04/19 14:00 Pending 1 dose .XX ASDIRECTED Simvastatin [Zocor] Med 03/04/19 21:00 Active 40 mg PO BEDTIME Vancomycin 750 mg Med 03/05/19 09:00 Active Vancomycin 500 mg Sodium Chloride 0.9% [Normal Saline] 250 ml IV Q24H amLODIPine [Norvasc] Med 03/05/19 09:00 Active 10 mg PO DAILY rifAMPin Med 03/05/19 09:00 Active 600 mg PO DAILY traMADol [Ultram] Med 03/04/19 12:36 Active 50 mg PO Q6H PRN Weight bearing status [OM.PC] Routine Oth 03/04/19 13:06 Ordered Resuscitation Status Routine Resus Stat 03/04/19 12:34 Ordered Medication Orders Acetaminophen (Tylenol) 650 mg PO Q6H PRN PRN Reason: Pain Last Admin: 03/04/19 16:43 Dose: 650 mg Amlodipine Besylate (Norvasc) 10 mg PO DAILY [facility] Brimonidine Tartrate (Alphagan 0.2% Ophth Soln) 0 ml EYEBOTH TID [facility] Last Admin: 03/04/19 15:08 Dose: 1 drop Enoxaparin Sodium (Lovenox) 40 mg SUBCUT Q24H [facility] Stop: 03/31/19 14:01 Last Admin: 03/04/19 15:08 Dose: 40 mg Heparin Sodium (Porcine) (Heparin Lock Flush 100 Units/Ml) 300 units FLUSH Q24H [facility] Heparin Sodium (Porcine) (Heparin Lock Flush 100 Units/Ml) 300 units FLUSH ASDIRECTED PRN PRN Reason: AFTER USE Vancomycin HCl 750 mg/Vancomycin HCl 500 mg/ Sodium Chloride 250 mls @ 166.667 mls/hr IV Q24H [facility] Stop: 04/10/19 12:00 Latanoprost (Xalatan 0.005% Ophth Soln) 0 ml EYEBOTH BEDTIME [facility] Metoprolol Tartrate (Lopressor) 25 mg PO BID [facility] Rifampin (Rifampin) 600 mg PO DAILY [facility] Stop: 03/18/19 09:01 Senna/Docusate Sodium (Senna Plus) 2 tab PO BID PRN PRN Reason: CONSTIPATION Simvastatin (Zocor) 40 mg PO BEDTIME [facility] Tramadol HCl (Ultram) 50 mg PO Q6H PRN PRN Reason: Pain Last Admin: 03/04/19 12:55 Dose: 50 mg Vancomycin HCl (Pharmacy To Dose - Vancomycin) 1 dose .XX ASDIRECTED [facility] Vit C/Vit E/Zinc/Copper/Lutein (Ocuvite Lutein) 1 each PO BID [facility] Assessment/Plan Comment:: Admit to swing bed, with routine orders including physical and occupational therapy. The orders IV antibiotics, vancomycin for pharmacy to dose. Continue the rifampin orally. Pain is controlled by tramadol when necessary.
[2019-03-04] MEDS: Lutein/Minerals/Vitamin C/Vitamin E Acetate Cap PO SCH (21:08)
[2019-03-04] MEDS: Simvastatin 40 MG Tab PO SCH (21:08)
[2019-03-04] MEDS: Latanoprost 0.005% Ophth Soln 2.5 ML Bottle EYEBOTH SCH (21:08)
[2019-03-04] MEDS: Metoprolol Tartrate 25 MG Tab PO SCH (21:09)
[2019-03-05] MEDS: traMADol 50 MG Tab PO PRN ×2 (06:54→14:29)
[2019-03-05] MEDS: Metoprolol Tartrate 25 MG Tab PO SCH ×2 (09:39→21:07)
[2019-03-05] MEDS: Brimonidine 0.2% Ophth Soln 5 ML Bottle EYEBOTH SCH ×3 (09:39→21:07)
[2019-03-05] MEDS: Lutein/Minerals/Vitamin C/Vitamin E Acetate Cap PO SCH ×2 (09:40→21:07)
[2019-03-05] MEDS: Rifampin 300 MG Cap PO SCH (09:40)
[2019-03-05] MEDS: amLODIPine 10 MG Tab PO SCH (09:40)
[2019-03-05] MEDS: Vancomycin 750 MG, Vancomycin 500 MG in Sodium Chloride 0.9% 250 ML IV SCH (10:19)
[2019-03-05] MEDS: Acetaminophen 325 MG Tab PO SCH ×3 (10:21→21:07)
--- NOTE | 2019-03-05 11:01 | PCM.PN ---
- General Info Date of Service: 03/05/19 Subjective Update: patient was not able to urinate overnight, order was given to bladder scan and found to have 1000 ml residual, was straight cathed and 900 ml were obtained. Patient states that he has not urinated this morning but denies any abdominal pain or sensation he needs to go. No shortness of breath or chest pain. Has pain in left hip, better with rest/no movement, worse with activity. - Patient Data Vitals - Most Recent: Last Vital Signs Temp 36.4 C 03/04/19 12:10 Pulse 81 03/05/19 09:39 Resp 20 03/04/19 12:10 BP 148/63 H 03/05/19 09:40 Pulse Ox 96 03/04/19 12:10 Weight - Most Recent: 83.659 kg I&O - Last 24 Hours: Intake & Output 03/04/19 03/05/19 03/05/19 22:59 06:59 14:59 Intake Total 240 Output Total 900 Balance 240 -900 Lab Results Last 24 Hours: Laboratory Results - last 24 hr 03/05/19 Range/Units 09:30 Vancomycin Trough 15.7 H (<0.8) ug/mL Med Orders - Current: Current Medications Acetaminophen (Tylenol) 650 mg PO TID [facility] Last Admin: 03/05/19 10:21 Dose: 650 mg Amlodipine Besylate (Norvasc) 10 mg PO DAILY [facility] Last Admin: 03/05/19 09:40 Dose: 10 mg Brimonidine Tartrate (Alphagan 0.2% Ophth Soln) 0 ml EYEBOTH TID [facility] Last Admin: 03/05/19 09:39 Dose: 1 drop Enoxaparin Sodium (Lovenox) 40 mg SUBCUT Q24H [facility] Stop: 03/31/19 14:01 Last Admin: 03/04/19 15:08 Dose: 40 mg Heparin Sodium (Porcine) (Heparin Lock Flush 100 Units/Ml) 300 units FLUSH Q24H [facility] Heparin Sodium (Porcine) (Heparin Lock Flush 100 Units/Ml) 300 units FLUSH ASDIRECTED PRN PRN Reason: AFTER USE Last Admin: 03/05/19 09:38 Dose: 300 units Vancomycin HCl 750 mg/Vancomycin HCl 500 mg/ Sodium Chloride 250 mls @ 166.667 mls/hr IV Q24H [facility] Stop: 04/10/19 12:00 Last Admin: 03/05/19 10:19 Dose: 166.667 mls/hr Latanoprost (Xalatan 0.005% Ophth Soln) 0 ml EYEBOTH BEDTIME [facility] Last Admin: 03/04/19 21:08 Dose: 1 drop Metoprolol Tartrate (Lopressor) 25 mg PO BID [facility] Last Admin: 03/05/19 09:39 Dose: 25 mg Rifampin (Rifampin) 600 mg PO DAILY [facility] Stop: 03/18/19 09:01 Last Admin: 03/05/19 09:40 Dose: 600 mg Senna/Docusate Sodium (Senna Plus) 2 tab PO BID PRN PRN Reason: CONSTIPATION Simvastatin (Zocor) 40 mg PO BEDTIME [facility] Last Admin: 03/04/19 21:08 Dose: 40 mg Tramadol HCl (Ultram) 50 mg PO Q6H PRN PRN Reason: Pain Last Admin: 03/05/19 06:54 Dose: 50 mg Vancomycin HCl (Pharmacy To Dose - Vancomycin) 1 dose .XX ASDIRECTED [facility] Vit C/Vit E/Zinc/Copper/Lutein (Ocuvite Lutein) 1 each PO BID [facility] Last Admin: 03/05/19 09:40 Dose: 1 each Discontinued Medications Acetaminophen (Tylenol) 650 mg PO Q6H PRN PRN Reason: Pain Last Admin: 03/04/19 23:43 Dose: 650 mg - Exam General: Alert, Oriented Lungs: Clear to Auscultation, Normal Respiratory Effort Cardiovascular: Regular Rate, Regular Rhythm GI/Abdominal Exam: Normal Bowel Sounds, Soft, Non-Tender, No Distention Extremities: No Pedal Edema Skin: Warm, Dry, Intact, Ecchymosis Wound/Incisions: Other (dressing in place on left hip) - Problem List & Annotations (1) MRSA bacteremia SNOMED Code(s): 78905983501513390 Code(s): R78.81 - BACTEREMIA Status: Acute Current Visit: Yes (2) Septic arthritis of hip SNOMED Code(s): 714610902 Code(s): M00.9 - PYOGENIC ARTHRITIS, UNSPECIFIED Status: Acute Current Visit: Yes Qualifiers: Septic arthritis organism: staphylococcal (3) Weakness SNOMED Code(s): 93351051 Code(s): R53.1 - WEAKNESS Status: Acute Current Visit: Yes (4) HTN (hypertension) SNOMED Code(s): 82744786 Code(s): I10 - ESSENTIAL (PRIMARY) HYPERTENSION Status: Chronic Current Visit: Yes Qualifiers: Hypertension type: essential hypertension Qualified Code(s): I10 - Essential (primary) hypertension (5) CAD (coronary artery disease) SNOMED Code(s): 81774773 Code(s): I25.10 - ATHSCL HEART DISEASE OF [place] CORONARY ARTERY W/O ANG PCTRS Status: Acute Current Visit: Yes - Problem List Review Problem List Initiated/Reviewed/Updated: Yes - My Orders Last 24 Hours: My Active Orders 03/05/19 10:00 Acetaminophen [Tylenol] 650 mg PO TID 03/08/19 08:30 VANCOMYCIN TROUGH [CHEM] Timed - Plan Plan:: 1. Continue PT/OT, 2 person assist with walker, weight bearing as tolerated. 2. Vancomycin IV per pharmacy and Rifampin po continue. 3. Add Tylenol 650 mg tid scheduled with his Tramadol as needed. 4. Care conference scheduled for Friday at 1 pm. 5. Some confusion as to what procedures were done in [place] from documentation that we received, will call [facility] and speak with provider and also get discharge summary.
[2019-03-05] MEDS: Enoxaparin 40 MG/0.4 ML Syringe SUBCUT SCH (14:33)
[2019-03-05] MEDS: Latanoprost 0.005% Ophth Soln 2.5 ML Bottle EYEBOTH SCH (21:06)
[2019-03-05] MEDS: Simvastatin 40 MG Tab PO SCH (21:08)
[2019-03-06] MEDS: traMADol 50 MG Tab PO PRN ×2 (07:44→14:54)
[2019-03-06] MEDS: Vancomycin 750 MG, Vancomycin 500 MG in Sodium Chloride 0.9% 250 ML IV SCH (10:21)
[2019-03-06] MEDS: Sodium Chloride 0.9% 10 ML Syringe FLUSH PRN ×2 (10:23→10:27)
[2019-03-06] MEDS: Metoprolol Tartrate 25 MG Tab PO SCH ×2 (10:25→20:56)
[2019-03-06] MEDS: Brimonidine 0.2% Ophth Soln 5 ML Bottle EYEBOTH SCH ×3 (10:25→20:53)
[2019-03-06] MEDS: Rifampin 300 MG Cap PO SCH (10:26)
[2019-03-06] MEDS: amLODIPine 10 MG Tab PO SCH (10:26)
[2019-03-06] MEDS: Lutein/Minerals/Vitamin C/Vitamin E Acetate Cap PO SCH ×2 (10:26→20:54)
[2019-03-06] MEDS: Acetaminophen 325 MG Tab PO SCH ×3 (10:27→20:54)
[2019-03-06] MEDS: Enoxaparin 40 MG/0.4 ML Syringe SUBCUT SCH (14:53)
[2019-03-06] MEDS: Latanoprost 0.005% Ophth Soln 2.5 ML Bottle EYEBOTH SCH (20:55)
[2019-03-06] MEDS: Simvastatin 40 MG Tab PO SCH (20:55)
[2019-03-07] MEDS: traMADol 50 MG Tab PO PRN ×4 (02:33→21:14)
[2019-03-07] MEDS: Metoprolol Tartrate 25 MG Tab PO SCH ×2 (08:43→20:27)
[2019-03-07] MEDS: Brimonidine 0.2% Ophth Soln 5 ML Bottle EYEBOTH SCH ×3 (08:43→20:27)
[2019-03-07] MEDS: Rifampin 300 MG Cap PO SCH (08:44)
[2019-03-07] MEDS: Acetaminophen 325 MG Tab PO SCH ×3 (08:44→20:28)
[2019-03-07] MEDS: amLODIPine 10 MG Tab PO SCH (08:44)
[2019-03-07] MEDS: Lutein/Minerals/Vitamin C/Vitamin E Acetate Cap PO SCH ×2 (08:44→20:28)
[2019-03-07] MEDS: Sodium Chloride 0.9% 10 ML Syringe FLUSH PRN ×2 (08:45→11:08)
[2019-03-07] MEDS: Vancomycin 750 MG, Vancomycin 500 MG in Sodium Chloride 0.9% 250 ML IV SCH (10:25)
[2019-03-07] MEDS: Enoxaparin 40 MG/0.4 ML Syringe SUBCUT SCH (15:22)
[2019-03-07] MEDS: Simvastatin 40 MG Tab PO SCH (20:29)
[2019-03-07] MEDS: Latanoprost 0.005% Ophth Soln 2.5 ML Bottle EYEBOTH SCH (20:29)
[2019-03-08] MEDS: traMADol 50 MG Tab PO PRN ×2 (06:11→17:48)
[2019-03-08] MEDS: Acetaminophen 325 MG Tab PO SCH ×3 (08:44→21:45)
[2019-03-08] MEDS: amLODIPine 10 MG Tab PO SCH (08:45)
[2019-03-08] MEDS: Rifampin 300 MG Cap PO SCH (08:45)
[2019-03-08] MEDS: Lutein/Minerals/Vitamin C/Vitamin E Acetate Cap PO SCH ×2 (08:45→21:45)
[2019-03-08] MEDS: Metoprolol Tartrate 25 MG Tab PO SCH ×2 (08:45→21:44)
[2019-03-08] MEDS: Brimonidine 0.2% Ophth Soln 5 ML Bottle EYEBOTH SCH ×3 (08:47→21:41)
[2019-03-08] MEDS: Sodium Chloride 0.9% 10 ML Syringe FLUSH PRN ×2 (09:30→12:23)
[2019-03-08] MEDS: Vancomycin 750 MG, Vancomycin 500 MG in Sodium Chloride 0.9% 250 ML IV SCH (10:46)
--- NOTE | 2019-03-08 12:35 | US ---
INDICATION: Right upper extremity edema. DUPLEX ULTRASOUND, RIGHT UPPER EXTREMITY VEINS: Utilizing 2-D real time, duplex Doppler spectral analysis and color flow imaging, examination of the right upper extremity veins, including the subclavian, axillary, brachial, and basilic veins, revealed no evidence of deep venous thrombosis or obstruction. The inferior jugular and cephalic veins were not documented. No evidence of deep venous thrombosis could be identified with normal compression and phasicity suggested. IMPRESSION: No evidence of deep venous thrombosis. There is some interstitial edema noted in the medial proximal arm. MTDD
[2019-03-08] MEDS: Enoxaparin 40 MG/0.4 ML Syringe SUBCUT SCH (14:01)
[2019-03-08] MEDS: Simvastatin 40 MG Tab PO SCH (21:45)
[2019-03-08] MEDS: Latanoprost 0.005% Ophth Soln 2.5 ML Bottle EYEBOTH SCH (21:45)
[2019-03-09] MEDS: traMADol 50 MG Tab PO PRN ×3 (03:31→20:57)
[2019-03-09] MEDS: Brimonidine 0.2% Ophth Soln 5 ML Bottle EYEBOTH SCH ×3 (08:28→20:34)
[2019-03-09] MEDS: Acetaminophen 325 MG Tab PO SCH ×3 (08:28→20:34)
[2019-03-09] MEDS: Rifampin 300 MG Cap PO SCH (08:28)
[2019-03-09] MEDS: Lutein/Minerals/Vitamin C/Vitamin E Acetate Cap PO SCH ×2 (08:28→20:34)
[2019-03-09] MEDS: amLODIPine 10 MG Tab PO SCH (08:28)
[2019-03-09] MEDS: Metoprolol Tartrate 25 MG Tab PO SCH ×2 (08:28→20:35)
[2019-03-09] MEDS: Vancomycin 750 MG, Vancomycin 500 MG in Sodium Chloride 0.9% 250 ML IV SCH (08:59)
[2019-03-09] MEDS: Sodium Chloride 0.9% 10 ML Syringe FLUSH PRN ×2 (09:00→10:34)
[2019-03-09] MEDS: Enoxaparin 40 MG/0.4 ML Syringe SUBCUT SCH (13:19)
--- NOTE | 2019-03-09 15:15 | PCM.PN ---
- General Info Date of Service: 03/09/19 Subjective Update: Patient having more edema in left calf, noted some redness in the shower this morning but states it is gone now. No pain when calf is pressed. Also more swelling in right hand again, ultrasound yesterday showed no DVT in right upper arm. States his groin pain is better when his hip is flexed and worse when it is straight. States some movements make the pain intolerable and he gets cold and has to lay down. Rest makes it better. - Patient Data Vitals - Most Recent: Last Vital Signs Temp 36.7 C 03/09/19 08:25 Pulse 84 03/09/19 08:28 Resp 18 03/09/19 08:25 BP 143/65 H 03/09/19 08:28 Pulse Ox 96 03/09/19 08:25 Weight - Most Recent: 83.659 kg I&O - Last 24 Hours: Intake & Output 03/09/19 03/09/19 03/09/19 06:59 14:59 22:59 Output Total 1100 Balance -1100 Imaging Impressions - Last 24 Hours: Ultrasound right upper extremity: negative for DVT. Med Orders - Current: Current Medications Acetaminophen (Tylenol) 650 mg PO TID [facility] Last Admin: 03/09/19 13:18 Dose: 650 mg Amlodipine Besylate (Norvasc) 10 mg PO DAILY [facility] Last Admin: 03/09/19 08:28 Dose: 10 mg Brimonidine Tartrate (Alphagan 0.2% Ophth Soln) 0 ml EYEBOTH TID [facility] Last Admin: 03/09/19 13:19 Dose: 1 drop Enoxaparin Sodium (Lovenox) 40 mg SUBCUT Q24H [facility] Stop: 03/31/19 14:01 Last Admin: 03/09/19 13:19 Dose: 40 mg Heparin Sodium (Porcine) (Heparin Lock Flush 100 Units/Ml) 300 units FLUSH Q24H [facility] Last Admin: 03/09/19 10:34 Dose: 300 units Heparin Sodium (Porcine) (Heparin Lock Flush 100 Units/Ml) 300 units FLUSH ASDIRECTED PRN PRN Reason: AFTER USE Last Admin: 03/08/19 09:35 Dose: 300 units Vancomycin HCl 750 mg/Vancomycin HCl 500 mg/ Sodium Chloride 250 mls @ 166.667 mls/hr IV Q24H [facility] Stop: 04/10/19 12:00 Last Admin: 03/09/19 08:59 Dose: 166.667 mls/hr Latanoprost (Xalatan 0.005% Ophth Soln) 0 ml EYEBOTH BEDTIME [facility] Last Admin: 03/08/19 21:45 Dose: 1 drop Metoprolol Tartrate (Lopressor) 25 mg PO BID [facility] Last Admin: 03/09/19 08:28 Dose: 25 mg Rifampin (Rifampin) 600 mg PO DAILY [facility] Stop: 03/18/19 09:01 Last Admin: 03/09/19 08:28 Dose: 600 mg Senna/Docusate Sodium (Senna Plus) 1 tab PO BID PRN PRN Reason: constipation Simvastatin (Zocor) 40 mg PO BEDTIME [facility] Last Admin: 03/08/19 21:45 Dose: 40 mg Sodium Chloride (Saline Flush) 10 ml FLUSH ASDIRECTED PRN PRN Reason: Keep Vein Open Last Admin: 03/09/19 10:34 Dose: 10 ml Tramadol HCl (Ultram) 50 mg PO Q6H PRN PRN Reason: Pain Last Admin: 03/09/19 13:18 Dose: 50 mg Vancomycin HCl (Pharmacy To Dose - Vancomycin) 1 dose .XX ASDIRECTED [facility] Vit C/Vit E/Zinc/Copper/Lutein (Ocuvite Lutein) 1 each PO BID [facility] Last Admin: 03/09/19 08:28 Dose: 1 each Discontinued Medications Acetaminophen (Tylenol) 650 mg PO Q6H PRN PRN Reason: Pain Last Admin: 03/04/19 23:43 Dose: 650 mg Senna/Docusate Sodium (Senna Plus) 2 tab PO BID PRN PRN Reason: CONSTIPATION Last Admin: 03/07/19 15:23 Dose: 2 tab Senna/Docusate Sodium (Senna Plus) 1 tab PO BID [facility] Last Admin: 03/08/19 16:44 Dose: Not Given - Exam General: Alert, Oriented, Cooperative Lungs: Clear to Auscultation, Normal Respiratory Effort Cardiovascular: Regular Rate, Regular Rhythm GI/Abdominal Exam: Normal Bowel Sounds, Soft, Non-Tender, No Distention (Male) Exam: Scrotal Swelling, Other (TTP over right hip, ecchymosis scattered in groin. No warmth or erythema.). No: Rash Extremities: Non-Tender, Pedal Edema. No: Fortino's Sign, Redness (knee distally) Skin: Warm, Dry, Ecchymosis (scattered groin & abdomen) Wound/Incisions: Dressing Dry and Intact Neurological: No New Focal Deficit, Normal Speech - Problem List & Annotations (1) MRSA bacteremia SNOMED Code(s): 38821939883972035 Code(s): R78.81 - BACTEREMIA Status: Acute Current Visit: Yes Annotation/Comment:: 6 weeks of IV vancomycin and po rifampin, will complete Apr 15 (2) Septic arthritis of hip SNOMED Code(s): 825572825 Code(s): M00.9 - PYOGENIC ARTHRITIS, UNSPECIFIED Status: Acute Current Visit: Yes Qualifiers: Septic arthritis organism: staphylococcal (3) Weakness SNOMED Code(s): 35573525 Code(s): R53.1 - WEAKNESS Status: Acute Current Visit: Yes Annotation/ Comment:: improving (4) HTN (hypertension) SNOMED Code(s): 92022046 Code(s): I10 - ESSENTIAL (PRIMARY) HYPERTENSION Status: Chronic Current Visit: Yes Qualifiers: Hypertension type: essential hypertension Qualified Code(s): I10 - Essential (primary) hypertension (5) CAD (coronary artery disease) SNOMED Code(s): 43396023 Code(s): I25.10 - ATHSCL HEART DISEASE OF [place] CORONARY ARTERY W/O ANG PCTRS Status: Acute Current Visit: Yes - Problem List Review Problem List Initiated/Reviewed/Updated: Yes - My Orders Last 24 Hours: My Active Orders 03/08/19 17:00 Docusate Sodium/Sennosides [Senna Plus] 1 tab PO BID PRN 03/09/19 12:44 Urinary Catheter Assessment [RC] QSHIFT 03/09/19 12:45 Insert Urinary Catheter [OM.PC] Q24H 03/15/19 08:30 VANCOMYCIN TROUGH [CHEM] MO@0830 03/22/19 08:30 VANCOMYCIN TROUGH [CHEM] MO@0830 03/29/19 08:30 VANCOMYCIN TROUGH [CHEM] MO@0830 04/05/19 08:30 VANCOMYCIN TROUGH [CHEM] MO@0830 - Plan Plan:: 1. Continue PT/OT, 2 person assist with walker, weight bearing as tolerated. 2. Vancomycin IV per pharmacy and Rifampin oral continue. 3. Patient okay to go out to [employer], activities at [facility], when he is able per PT/OT can go on day pass with family. Patient will have clean dressing in place, clean scrub pants and use good hand washing techniques when out of his room. 4. Ruled out DVT in right arm. Edema is left leg is expected postoperatively, Fortino's negative. PT to use compression on right upper arm and will have JULIO C/ ADRY wraps on BLE. 5. Adjust treatments as necessary.
[2019-03-09] MEDS: Latanoprost 0.005% Ophth Soln 2.5 ML Bottle EYEBOTH SCH (20:33)
[2019-03-09] MEDS: Simvastatin 40 MG Tab PO SCH (20:34)
[2019-03-10] MEDS: traMADol 50 MG Tab PO PRN ×2 (08:31→15:47)
[2019-03-10] MEDS: Acetaminophen 325 MG Tab PO SCH ×3 (08:32→21:33)
[2019-03-10] MEDS: Brimonidine 0.2% Ophth Soln 5 ML Bottle EYEBOTH SCH ×3 (08:32→21:29)
[2019-03-10] MEDS: Metoprolol Tartrate 25 MG Tab PO SCH ×2 (08:33→21:31)
[2019-03-10] MEDS: amLODIPine 10 MG Tab PO SCH (08:33)
[2019-03-10] MEDS: Rifampin 300 MG Cap PO SCH (08:34)
[2019-03-10] MEDS: Lutein/Minerals/Vitamin C/Vitamin E Acetate Cap PO SCH ×2 (08:34→21:32)
[2019-03-10] MEDS: Sodium Chloride 0.9% 10 ML Syringe FLUSH PRN (11:30)
[2019-03-10] MEDS: Vancomycin 750 MG, Vancomycin 500 MG in Sodium Chloride 0.9% 250 ML IV SCH (11:37)
[2019-03-10] MEDS: Enoxaparin 40 MG/0.4 ML Syringe SUBCUT SCH (14:45)
[2019-03-10] MEDS: Furosemide 20 MG Tab PO SCH (14:46)
[2019-03-10] MEDS: Mirtazapine 15 MG Tab PO SCH (21:32)
[2019-03-10] MEDS: Latanoprost 0.005% Ophth Soln 2.5 ML Bottle EYEBOTH SCH (21:33)
[2019-03-10] MEDS: Simvastatin 40 MG Tab PO SCH (21:34)
[2019-03-11] MEDS: traMADol 50 MG Tab PO PRN ×4 (03:14→20:25)
[2019-03-11] MEDS: Sodium Chloride 0.9% 10 ML Syringe FLUSH PRN ×3 (06:25→11:55)
[2019-03-11] MEDS: Furosemide 20 MG Tab PO SCH (08:54)
[2019-03-11] MEDS: Brimonidine 0.2% Ophth Soln 5 ML Bottle EYEBOTH SCH ×3 (08:55→20:06)
[2019-03-11] MEDS: Lutein/Minerals/Vitamin C/Vitamin E Acetate Cap PO SCH ×2 (08:55→20:07)
[2019-03-11] MEDS: Acetaminophen 325 MG Tab PO SCH ×3 (08:55→20:08)
[2019-03-11] MEDS: Rifampin 300 MG Cap PO SCH (08:56)
[2019-03-11] MEDS: amLODIPine 10 MG Tab PO SCH (08:56)
[2019-03-11] MEDS: Metoprolol Tartrate 25 MG Tab PO SCH ×2 (08:57→20:10)
[2019-03-11] MEDS: Vancomycin 750 MG, Vancomycin 500 MG in Sodium Chloride 0.9% 250 ML IV SCH (08:59)
[2019-03-11] MEDS ORDERED: Sodium Chloride 0.9% 10 ML Syringe FLUSH PRN (10:50)
[2019-03-11] MEDS ORDERED: AA 5%/Calcium/D15W/Lytes 1,000 ML IV ONE (11:00)
[2019-03-11] MEDS: Multivitamin Tab PO SCH (11:42)
[2019-03-11] MEDS: Enoxaparin 40 MG/0.4 ML Syringe SUBCUT SCH (14:09)
[2019-03-11] MEDS: Mirtazapine 15 MG Tab PO SCH (20:08)
[2019-03-11] MEDS: Latanoprost 0.005% Ophth Soln 2.5 ML Bottle EYEBOTH SCH (20:09)
[2019-03-11] MEDS: Simvastatin 40 MG Tab PO SCH (20:09)
[2019-03-12] MEDS: Brimonidine 0.2% Ophth Soln 5 ML Bottle EYEBOTH SCH ×3 (08:01→20:54)
[2019-03-12] MEDS: traMADol 50 MG Tab PO PRN ×2 (08:40→16:49)
[2019-03-12] MEDS: Lutein/Minerals/Vitamin C/Vitamin E Acetate Cap PO SCH ×2 (08:41→20:55)
[2019-03-12] MEDS: amLODIPine 10 MG Tab PO SCH (08:42)
[2019-03-12] MEDS: Rifampin 300 MG Cap PO SCH (08:42)
[2019-03-12] MEDS: Metoprolol Tartrate 25 MG Tab PO SCH ×2 (08:43→20:55)
[2019-03-12] MEDS: Acetaminophen 325 MG Tab PO SCH ×3 (08:43→20:55)
[2019-03-12] MEDS: Multivitamin Tab PO SCH (08:44)
[2019-03-12] MEDS: Sodium Chloride 0.9% 10 ML Syringe FLUSH PRN ×3 (09:31→20:50)
[2019-03-12] MEDS: Vancomycin 750 MG, Vancomycin 500 MG in Sodium Chloride 0.9% 250 ML IV SCH (09:32)
[2019-03-12] MEDS: Enoxaparin 40 MG/0.4 ML Syringe SUBCUT SCH (13:20)
[2019-03-12] MEDS: AA 5%/Calcium/D15W/Lytes 1,000 ML IV SCH (20:52)
[2019-03-12] MEDS: Simvastatin 40 MG Tab PO SCH (20:55)
[2019-03-12] MEDS: Mirtazapine 15 MG Tab PO SCH (20:56)
[2019-03-12] MEDS: Latanoprost 0.005% Ophth Soln 2.5 ML Bottle EYEBOTH SCH (20:57)
[2019-03-12] MEDS: Fat Emulsion 250 ML IV SCH (20:59)
[2019-03-13] MEDS: traMADol 50 MG Tab PO PRN ×3 (00:25→18:18)
[2019-03-13] MEDS: Metoprolol Tartrate 25 MG Tab PO SCH ×2 (08:26→20:29)
[2019-03-13] MEDS: Brimonidine 0.2% Ophth Soln 5 ML Bottle EYEBOTH SCH ×3 (08:26→20:28)
[2019-03-13] MEDS: Lutein/Minerals/Vitamin C/Vitamin E Acetate Cap PO SCH ×2 (08:27→20:28)
[2019-03-13] MEDS: Rifampin 300 MG Cap PO SCH (08:27)
[2019-03-13] MEDS: amLODIPine 10 MG Tab PO SCH (08:27)
[2019-03-13] MEDS: Acetaminophen 325 MG Tab PO SCH ×3 (08:28→20:29)
[2019-03-13] MEDS: Multivitamin Tab PO SCH (08:28)
[2019-03-13] MEDS: Vancomycin 750 MG, Vancomycin 500 MG in Sodium Chloride 0.9% 250 ML IV SCH (08:37)
[2019-03-13] MEDS: Sodium Chloride 0.9% 10 ML Syringe FLUSH PRN ×3 (08:42→20:53)
--- NOTE | 2019-03-13 10:57 | PCM.PN ---
- General Info Date of Service: 03/13/19 Admission Dx/Problem (Free Text): The nurses reported that the patient was flush earlier this morning temperature was over 101. The ER doc order some labs. The patient states he's feeling well. His pain is getting better. He did nice, fevers, chills, runny nose, sore throat , cough. He has a bladder catheter and wishes output is having no problems with that either. - Patient Data Vitals - Most Recent: Last Vital Signs Temp 100.9 F H 03/13/19 06:35 Pulse 94 03/13/19 08:26 Resp 19 03/13/19 06:35 BP 150/73 H 03/13/19 08:27 Pulse Ox 91 L 03/13/19 06:35 Weight - Most Recent: 178 lb 6.4 oz I&O - Last 24 Hours: Intake & Output 03/12/19 03/13/19 03/13/19 22:59 06:59 14:59 Intake Total 250 1184 Output Total 650 1300 Balance -400 -116 Lab Results Last 24 Hours: Laboratory Results - last 24 hr 03/12/19 03/12/19 03/12/19 Range/Units 11:30 17:34 21:23 WBC (4.5-12.0) X10-3/uL RBC (4.30-5.75) x10(6)uL Hgb (13.5-17.8) g/dL Hct (30.0-51.3) % MCV (80-96) fL MCH (27.7-33.6) pg MCHC (32.2-35.4) g/dL RDW (11.5-15.5) % Plt Count (125-369) X10(3)uL MPV (7.4-10.4) fL Neut % (Auto) (46-82) % Lymph % (Auto) (13-37) % [place] % (Auto) (4-12) % Eos % (Auto) (1.0-5.0) % Baso % (Auto) (0-2) % Neut # (Auto) (1.6-8.3) # Lymph # (Auto) (0.6-5.0) # [place] # (Auto) (0.0-1.3) # Eos # (Auto) (0.0-0.8) # Baso # (Auto) (0.0-0.2) # Sodium (135-145) mmol/L Potassium (3.5-5.3) mmol/L Chloride (100-110) mmol/L Carbon Dioxide (21-32) mmol/L BUN (7-18) mg/dL Creatinine (0.70-1.30) mg/dL Est Cr Clr Drug Dosing mL/min Estimated GFR (MDRD) (>60) BUN/Creatinine Ratio (9-20) Glucose (80-116) mg/dL POC Glucose 129 H 146 H 161 H (80-116) mg/dL Lactic Acid (0.4-2.2) mmol/L Calcium (8.6-10.2) mg/dL C-Reactive Protein (0.5-0.9) mg/dL Urine Color (YELLOW) Urine Appearance (CLEAR) Urine pH (5.0-6.5) Ur Specific [place] (1.010-1.025) Urine Protein (NEGATIVE) mg/dL Urine Glucose (UA) (NORMAL) mg/dL Urine Ketones (NEGATIVE) mg/dL Urine Occult Blood (NEGATIVE) Urine Nitrite (NEGATIVE) Urine Bilirubin (NEGATIVE) Urine Urobilinogen (NEGATIVE) mg/dL Ur Leukocyte Esterase (NEGATIVE) Urine RBC (0-5) Urine WBC (0-5) Ur Squamous Epith Cells (NS,R,O) Urine Bacteria (NS) Urine Yeast (NS) 03/13/19 03/13/19 03/13/19 Range/Units 06:11 07:55 07:55 WBC 9.1 (4.5-12.0) X10-3/uL RBC 3.00 L (4.30-5.75) x10(6)uL Hgb 9.6 L (13.5-17.8) g/dL Hct 27.8 L (30.0-51.3) % MCV 92.7 (80-96) fL MCH 32.0 (27.7-33.6) pg MCHC 34.6 (32.2-35.4) g/dL RDW 13.6 (11.5-15.5) % Plt Count 395 H (125-369) X10(3)uL MPV 7.2 L (7.4-10.4) fL Neut % (Auto) 79.0 (46-82) % Lymph % (Auto) 9.0 L (13-37) % [place] % (Auto) 8.4 (4-12) % Eos % (Auto) 3 (1.0-5.0) % Baso % (Auto) 1 (0-2) % Neut # (Auto) 7.1 (1.6-8.3) # Lymph # (Auto) 0.8 (0.6-5.0) # [place] # (Auto) 0.8 (0.0-1.3) # Eos # (Auto) 0.3 (0.0-0.8) # Baso # (Auto) 0.1 (0.0-0.2) # Sodium 134 L (135-145) mmol/L Potassium 3.7 (3.5-5.3) mmol/L Chloride 102 (100-110) mmol/L Carbon Dioxide 25 (21-32) mmol/L BUN 22 H (7-18) mg/dL Creatinine 1.2 (0.70-1.30) mg/dL Est Cr Clr Drug Dosing 39.02 mL/min Estimated GFR (MDRD) 57 L (>60) BUN/Creatinine Ratio 18.3 (9-20) Glucose 158 H (80-116) mg/dL POC Glucose 165 H (80-116) mg/dL Lactic Acid (0.4-2.2) mmol/L Calcium 7.7 L (8.6-10.2) mg/dL C-Reactive Protein (0.5-0.9) mg/dL Urine Color (YELLOW) Urine Appearance (CLEAR) Urine pH (5.0-6.5) Ur Specific [place] (1.010-1.025) Urine Protein (NEGATIVE) mg/dL Urine Glucose (UA) (NORMAL) mg/dL Urine Ketones (NEGATIVE) mg/dL Urine Occult Blood (NEGATIVE) Urine Nitrite (NEGATIVE) Urine Bilirubin (NEGATIVE) Urine Urobilinogen (NEGATIVE) mg/dL Ur Leukocyte Esterase (NEGATIVE) Urine RBC (0-5) Urine WBC (0-5) Ur Squamous Epith Cells (NS,R,O) Urine Bacteria (NS) Urine Yeast (NS) 03/13/19 03/13/19 03/13/19 Range/Units 07:55 07:55 09:05 WBC (4.5-12.0) X10-3/uL RBC (4.30-5.75) x10(6)uL Hgb (13.5-17.8) g/dL Hct (30.0-51.3) % MCV (80-96) fL MCH (27.7-33.6) pg MCHC (32.2-35.4) g/dL RDW (11.5-15.5) % Plt Count (125-369) X10(3)uL MPV (7.4-10.4) fL Neut % (Auto) (46-82) % Lymph % (Auto) (13-37) % [place] % (Auto) (4-12) % Eos % (Auto) (1.0-5.0) % Baso % (Auto) (0-2) % Neut # (Auto) (1.6-8.3) # Lymph # (Auto) (0.6-5.0) # [place] # (Auto) (0.0-1.3) # Eos # (Auto) (0.0-0.8) # Baso # (Auto) (0.0-0.2) # Sodium (135-145) mmol/L Potassium (3.5-5.3) mmol/L Chloride (100-110) mmol/L Carbon Dioxide (21-32) mmol/L BUN (7-18) mg/dL Creatinine (0.70-1.30) mg/dL Est Cr Clr Drug Dosing mL/min Estimated GFR (MDRD) (>60) BUN/Creatinine Ratio (9-20) Glucose (80-116) mg/dL POC Glucose (80-116) mg/dL Lactic Acid 1.2 (0.4-2.2) mmol/L Calcium (8.6-10.2) mg/dL C-Reactive Protein 36.4 H* (0.5-0.9) mg/dL Urine Color Other (YELLOW) Urine Appearance Cloudy (CLEAR) Urine pH 6.0 (5.0-6.5) Ur Specific [place] 1.010 (1.010-1.025) Urine Protein 30 H (NEGATIVE) mg/dL Urine Glucose (UA) Normal (NORMAL) mg/dL Urine Ketones Negative (NEGATIVE) mg/dL Urine Occult Blood Large H (NEGATIVE) Urine Nitrite Negative (NEGATIVE) Urine Bilirubin Negative (NEGATIVE) Urine Urobilinogen Normal (NEGATIVE) mg/dL Ur Leukocyte Esterase Moderate H (NEGATIVE) Urine RBC >100 H (0-5) Urine WBC 10-20 H (0-5) Ur Squamous Epith Cells Rare (NS,R,O) Urine Bacteria Few H (NS) Urine Yeast Moderate H (NS) Med Orders - Current: Current Medications Acetaminophen (Tylenol) 650 mg PO TID [facility] Last Admin: 03/13/19 08:28 Dose: 650 mg Amlodipine Besylate (Norvasc) 10 mg PO DAILY [facility] Last Admin: 03/13/19 08:27 Dose: 10 mg Brimonidine Tartrate (Alphagan 0.2% Ophth Soln) 0 ml EYEBOTH TID [facility] Last Admin: 03/13/19 08:26 Dose: 1 drop Enoxaparin Sodium (Lovenox) 40 mg SUBCUT Q24H [facility] Stop: 03/31/19 14:01 Last Admin: 03/12/19 13:20 Dose: 40 mg Heparin Sodium (Porcine) (Heparin Lock Flush 100 Units/Ml) 300 units FLUSH Q24H [facility] Last Admin: 03/13/19 10:18 Dose: 300 units Heparin Sodium (Porcine) (Heparin Lock Flush 100 Units/Ml) 300 units FLUSH ASDIRECTED PRN PRN Reason: AFTER USE Last Admin: 03/11/19 06:26 Dose: 300 units Vancomycin HCl 750 mg/Vancomycin HCl 500 mg/ Sodium Chloride 250 mls @ 166.667 mls/hr IV Q24H [facility] Stop: 04/10/19 12:00 Last Admin: 03/13/19 08:37 Dose: 166.667 mls/hr Amino Ac/Electrol/Dextrose/Calcium (Clinimix E 12/09) 1,000 mls @ 84 mls/hr IV Q24H [facility] Last Admin: 03/12/19 20:52 Dose: 84 mls/hr Fat Emulsion Intravenous (Intralipid 20%) 250 mls @ 22 mls/hr IV [id number]@2100 [facility] Last Admin: 03/12/19 20:59 Dose: 22 mls/hr Latanoprost (Xalatan 0.005% Ophth Soln) 0 ml EYEBOTH BEDTIME [facility] Last Admin: 03/12/19 20:57 Dose: 1 drop Metoprolol Tartrate (Lopressor) 25 mg PO BID [facility] Last Admin: 03/13/19 08:26 Dose: 25 mg Mirtazapine (Remeron) 7.5 mg PO BEDTIME [facility] Last Admin: 03/12/19 20:56 Dose: 7.5 mg Multivitamins/Minerals/Vitamin C (Tab-A-Dawna) 1 tab PO DAILY [facility] Last Admin: 03/13/19 08:28 Dose: 1 tab Rifampin (Rifampin) 600 mg PO DAILY [facility] Stop: 04/10/19 09:01 Last Admin: 03/13/19 08:27 Dose: 600 mg Senna/Docusate Sodium (Senna Plus) 1 tab PO BID PRN PRN Reason: constipation Simvastatin (Zocor) 40 mg PO BEDTIME [facility] Last Admin: 03/12/19 20:55 Dose: 40 mg Sodium Chloride (Saline Flush) 10 ml FLUSH ASDIRECTED PRN PRN Reason: Keep Vein Open Last Admin: 03/13/19 10:36 Dose: 10 ml Tramadol HCl (Ultram) 50 mg PO Q6H PRN PRN Reason: Pain Last Admin: 03/13/19 08:28 Dose: 50 mg Vancomycin HCl (Pharmacy To Dose - Vancomycin) 1 dose .XX ASDIRECTED [facility] Vit C/Vit E/Zinc/Copper/Lutein (Ocuvite Lutein) 1 each PO BID [facility] Last Admin: 03/13/19 08:27 Dose: 1 each Discontinued Medications Acetaminophen (Tylenol) 650 mg PO Q6H PRN PRN Reason: Pain Last Admin: 03/04/19 23:43 Dose: 650 mg Furosemide (Lasix) 10 mg PO BIDDIURETIC [facility] Last Admin: 03/11/19 08:54 Dose: 10 mg Amino Ac/Electrol/Dextrose/Calcium (Clinimix E 12/09) 1,000 mls @ 42 mls/hr IV ONETIME ONE Stop: 03/12/19 10:48 Last Admin: 03/11/19 11:40 Dose: 42 mls/hr Senna/Docusate Sodium (Senna Plus) 2 tab PO BID PRN PRN Reason: CONSTIPATION Last Admin: 03/07/19 15:23 Dose: 2 tab Senna/Docusate Sodium (Senna Plus) 1 tab PO BID [facility] Last Admin: 03/08/19 16:44 Dose: Not Given - Exam General: Alert, Cooperative Lungs: Clear to Auscultation, Normal Respiratory Effort Cardiovascular: Regular Rate, Regular Rhythm Extremities: Pedal Edema Wound/Incisions: Healing Well. No: No Drainage, Erythema Psy/Mental Status: Alert, Normal Affect, Normal Mood - Problem List & Annotations (1) MRSA bacteremia SNOMED Code(s): 23418189782920004 Code(s): R78.81 - BACTEREMIA Status: Acute Current Visit: Yes Annotation/Comment:: 6 weeks of IV vancomycin and po rifampin, will complete Apr 15 (2) Septic arthritis of hip SNOMED Code(s): 151104574 Code(s): M00.9 - PYOGENIC ARTHRITIS, UNSPECIFIED Status: Acute Current Visit: Yes Qualifiers: Septic arthritis organism: staphylococcal (3) Weakness SNOMED Code(s): 74444706 Code(s): R53.1 - WEAKNESS Status: Acute Current Visit: Yes Annotation/ Comment:: improving - Problem List Review Problem List Initiated/Reviewed/Updated: Yes - My Orders Last 24 Hours: My Active Orders 03/13/19 08:41 CXR [Chest 2V] [CR] Routine 03/13/19 09:05 CULTURE URINE [RM] Routine - Plan Plan:: 1. Reviewed the labs. CRP is up but the white count down. 2. When I sesame seeds to be doing well so will observe. 3. Chest x-ray reviewed could be a little infiltrate in the right base wait for radiology interpretation 4. Continue TPN vancomycin 5. CRP in the a.m.
[2019-03-13] MEDS: Enoxaparin 40 MG/0.4 ML Syringe SUBCUT SCH (13:51)
[2019-03-13] MEDS: Simvastatin 40 MG Tab PO SCH (20:28)
[2019-03-13] MEDS: Latanoprost 0.005% Ophth Soln 2.5 ML Bottle EYEBOTH SCH (20:28)
[2019-03-13] MEDS: Mirtazapine 15 MG Tab PO SCH (20:29)
[2019-03-13] MEDS: AA 5%/Calcium/D15W/Lytes 1,000 ML IV SCH (20:31)
[2019-03-14] MEDS: traMADol 50 MG Tab PO PRN ×4 (00:35→20:42)
[2019-03-14] MEDS: Sodium Chloride 0.9% 10 ML Syringe FLUSH PRN ×4 (08:30→20:47)
[2019-03-14] MEDS: Vancomycin 750 MG, Vancomycin 500 MG in Sodium Chloride 0.9% 250 ML IV SCH (09:09)
[2019-03-14] MEDS: Brimonidine 0.2% Ophth Soln 5 ML Bottle EYEBOTH SCH ×3 (09:16→20:37)
[2019-03-14] MEDS: amLODIPine 10 MG Tab PO SCH (09:17)
[2019-03-14] MEDS: Metoprolol Tartrate 25 MG Tab PO SCH ×2 (09:18→20:37)
[2019-03-14] MEDS: Rifampin 300 MG Cap PO SCH (09:18)
[2019-03-14] MEDS: Acetaminophen 325 MG Tab PO SCH ×3 (09:19→20:38)
[2019-03-14] MEDS: Lutein/Minerals/Vitamin C/Vitamin E Acetate Cap PO SCH ×2 (09:20→20:38)
[2019-03-14] MEDS: Multivitamin Tab PO SCH (09:20)
[2019-03-14] MEDS: Enoxaparin 40 MG/0.4 ML Syringe SUBCUT SCH (14:10)
[2019-03-14] MEDS: Mirtazapine 15 MG Tab PO SCH (20:38)
[2019-03-14] MEDS: Latanoprost 0.005% Ophth Soln 2.5 ML Bottle EYEBOTH SCH (20:39)
[2019-03-14] MEDS: Simvastatin 40 MG Tab PO SCH (20:39)
[2019-03-14] MEDS: AA 5%/Calcium/D15W/Lytes 1,000 ML IV SCH (20:46)
[2019-03-15] MEDS: traMADol 50 MG Tab PO PRN (06:09)
[2019-03-15] MEDS: Sodium Chloride 0.9% 10 ML Syringe FLUSH PRN ×3 (08:34→20:52)
[2019-03-15] MEDS: Brimonidine 0.2% Ophth Soln 5 ML Bottle EYEBOTH SCH ×3 (08:44→20:49)
[2019-03-15] MEDS: Lutein/Minerals/Vitamin C/Vitamin E Acetate Cap PO SCH ×2 (08:44→20:50)
[2019-03-15] MEDS: Multivitamin Tab PO SCH (08:45)
[2019-03-15] MEDS: amLODIPine 10 MG Tab PO SCH (08:45)
[2019-03-15] MEDS: Rifampin 300 MG Cap PO SCH (08:45)
[2019-03-15] MEDS: Acetaminophen 325 MG Tab PO SCH ×3 (08:45→20:49)
[2019-03-15] MEDS: Metoprolol Tartrate 25 MG Tab PO SCH ×2 (08:46→20:51)
--- NOTE | 2019-03-15 09:31 | PCM.PN ---
- General Info Date of Service: 03/15/19 Admission Dx/Problem (Free Text): The patient states he has no ambition. He says he does not feel weak, his hip doesn't her knees had no redness on the wound. He denies chest pain, fevers, chills. He still has a urinary catheter in. - Patient Data Vitals - Most Recent: Last Vital Signs Temp 98.6 F 03/14/19 06:34 Pulse 87 03/15/19 08:46 Resp 18 03/14/19 06:34 BP 152/79 H 03/15/19 08:46 Pulse Ox 95 03/14/19 06:34 Weight - Most Recent: 278 lb 14.4 oz I&O - Last 24 Hours: Intake & Output 03/14/19 03/15/19 03/15/19 22:59 06:59 14:59 Intake Total 360 888 205 Output Total 200 1000 Balance 160 -112 205 Lab Results Last 24 Hours: Laboratory Results - last 24 hr 03/14/19 03/14/19 03/14/19 Range/Units 11:17 17:28 21:09 WBC (4.5-12.0) X10-3/uL RBC (4.30-5.75) x10(6)uL Hgb (13.5-17.8) g/dL Hct (30.0-51.3) % MCV (80-96) fL MCH (27.7-33.6) pg MCHC (32.2-35.4) g/dL RDW (11.5-15.5) % Plt Count (125-369) X10(3)uL MPV (7.4-10.4) fL Neut % (Auto) (46-82) % Lymph % (Auto) (13-37) % [place] % (Auto) (4-12) % Eos % (Auto) (1.0-5.0) % Baso % (Auto) (0-2) % Neut # (Auto) (1.6-8.3) # Lymph # (Auto) (0.6-5.0) # [place] # (Auto) (0.0-1.3) # Eos # (Auto) (0.0-0.8) # Baso # (Auto) (0.0-0.2) # PT (8.7-11.1) INR (0.89-1.13) Sodium (135-145) mmol/L Potassium (3.5-5.3) mmol/L Chloride (100-110) mmol/L Carbon Dioxide (21-32) mmol/L BUN (7-18) mg/dL Creatinine Est Cr Clr Drug Dosing Estimated GFR (MDRD) BUN/Creatinine Ratio (9-20) Glucose (80-116) mg/dL POC Glucose 169 H 127 H 133 H (80-116) mg/dL Calcium (8.6-10.2) mg/dL Total Bilirubin (0.1-1.3) mg/dL AST (5-25) IU/L ALT (12-36) U/L Alkaline Phosphatase (56-112) IU/L C-Reactive Protein (0.5-0.9) mg/dL Total Protein (6.0-8.0) g/dL Albumin (2.9-4.5) g/dL Globulin g/dL Albumin/Globulin Ratio Vancomycin Trough (<0.8) ug/mL 03/15/19 03/15/19 03/15/19 Range/Units 06:14 08:30 08:30 WBC (4.5-12.0) X10-3/uL RBC (4.30-5.75) x10(6)uL Hgb (13.5-17.8) g/dL Hct (30.0-51.3) % MCV (80-96) fL MCH (27.7-33.6) pg MCHC (32.2-35.4) g/dL RDW (11.5-15.5) % Plt Count (125-369) X10(3)uL MPV (7.4-10.4) fL Neut % (Auto) (46-82) % Lymph % (Auto) (13-37) % [place] % (Auto) (4-12) % Eos % (Auto) (1.0-5.0) % Baso % (Auto) (0-2) % Neut # (Auto) (1.6-8.3) # Lymph # (Auto) (0.6-5.0) # [place] # (Auto) (0.0-1.3) # Eos # (Auto) (0.0-0.8) # Baso # (Auto) (0.0-0.2) # PT (8.7-11.1) INR (0.89-1.13) Sodium (135-145) mmol/L Potassium (3.5-5.3) mmol/L Chloride (100-110) mmol/L Carbon Dioxide (21-32) mmol/L BUN (7-18) mg/dL Creatinine Cancelled Est Cr Clr Drug Dosing Cancelled Estimated GFR (MDRD) Cancelled BUN/Creatinine Ratio (9-20) Glucose (80-116) mg/dL POC Glucose 186 H (80-116) mg/dL Calcium (8.6-10.2) mg/dL Total Bilirubin (0.1-1.3) mg/dL AST (5-25) IU/L ALT (12-36) U/L Alkaline Phosphatase (56-112) IU/L C-Reactive Protein 17.5 H* (0.5-0.9) mg/dL Total Protein (6.0-8.0) g/dL Albumin (2.9-4.5) g/dL Globulin g/dL Albumin/Globulin Ratio Vancomycin Trough (<0.8) ug/mL 03/15/19 03/15/19 03/15/19 Range/Units 08:30 08:30 08:30 WBC 7.4 (4.5-12.0) X10-3/uL RBC 3.16 L (4.30-5.75) x10(6)uL Hgb 10.2 L (13.5-17.8) g/dL Hct 29.5 L (30.0-51.3) % MCV 93.2 (80-96) fL MCH 32.4 (27.7-33.6) pg MCHC 34.8 (32.2-35.4) g/dL RDW 13.9 (11.5-15.5) % Plt Count 421 H (125-369) X10(3)uL MPV 7.2 L (7.4-10.4) fL Neut % (Auto) 75.5 (46-82) % Lymph % (Auto) 12.1 L (13-37) % [place] % (Auto) 7.4 (4-12) % Eos % (Auto) 4 (1.0-5.0) % Baso % (Auto) 1 (0-2) % Neut # (Auto) 5.6 (1.6-8.3) # Lymph # (Auto) 0.9 (0.6-5.0) # [place] # (Auto) 0.5 (0.0-1.3) # Eos # (Auto) 0.3 (0.0-0.8) # Baso # (Auto) 0.1 (0.0-0.2) # PT (8.7-11.1) INR (0.89-1.13) Sodium 135 (135-145) mmol/L Potassium 3.9 (3.5-5.3) mmol/L Chloride 102 (100-110) mmol/L Carbon Dioxide 25 (21-32) mmol/L BUN 26 H (7-18) mg/dL Creatinine 1.3 Est Cr Clr Drug Dosing 36.02 Estimated GFR (MDRD) 52 L BUN/Creatinine Ratio 20.0 (9-20) Glucose 175 H (80-116) mg/dL POC Glucose (80-116) mg/dL Calcium 8.0 L (8.6-10.2) mg/dL Total Bilirubin 0.3 (0.1-1.3) mg/dL AST 22 (5-25) IU/L ALT 19 D (12-36) U/L Alkaline Phosphatase 53 L (56-112) IU/L C-Reactive Protein (0.5-0.9) mg/dL Total Protein 6.0 (6.0-8.0) g/dL Albumin 1.4 L* (2.9-4.5) g/dL Globulin 4.6 g/dL Albumin/Globulin Ratio 0.3 Vancomycin Trough 19.8 H (<0.8) ug/mL 03/15/19 Range/Units 08:30 WBC (4.5-12.0) X10-3/uL RBC (4.30-5.75) x10(6)uL Hgb (13.5-17.8) g/dL Hct (30.0-51.3) % MCV (80-96) fL MCH (27.7-33.6) pg MCHC (32.2-35.4) g/dL RDW (11.5-15.5) % Plt Count (125-369) X10(3)uL MPV (7.4-10.4) fL Neut % (Auto) (46-82) % Lymph % (Auto) (13-37) % [place] % (Auto) (4-12) % Eos % (Auto) (1.0-5.0) % Baso % (Auto) (0-2) % Neut # (Auto) (1.6-8.3) # Lymph # (Auto) (0.6-5.0) # [place] # (Auto) (0.0-1.3) # Eos # (Auto) (0.0-0.8) # Baso # (Auto) (0.0-0.2) # PT 10.8 (8.7-11.1) INR 1.11 (0.89-1.13) Sodium (135-145) mmol/L Potassium (3.5-5.3) mmol/L Chloride (100-110) mmol/L Carbon Dioxide (21-32) mmol/L BUN (7-18) mg/dL Creatinine Est Cr Clr Drug Dosing Estimated GFR (MDRD) BUN/Creatinine Ratio (9-20) Glucose (80-116) mg/dL POC Glucose (80-116) mg/dL Calcium (8.6-10.2) mg/dL Total Bilirubin (0.1-1.3) mg/dL AST (5-25) IU/L ALT (12-36) U/L Alkaline Phosphatase (56-112) IU/L C-Reactive Protein (0.5-0.9) mg/dL Total Protein (6.0-8.0) g/dL Albumin (2.9-4.5) g/dL Globulin g/dL Albumin/Globulin Ratio Vancomycin Trough (<0.8) ug/mL [place] Results Last 24 Hours: Microbiology 03/13/19 15:15 Aerobic Blood Culture - Preliminary Blood - Venous NO GROWTH AFTER 1 DAY Anaerobic Blood Culture - Preliminary NO GROWTH AFTER 1 DAY 03/13/19 09:05 Urine Culture - Preliminary Urine, Catheterized Yeast Isolated Med Orders - Current: Current Medications Acetaminophen (Tylenol) 650 mg PO TID [facility] Last Admin: 03/15/19 08:45 Dose: 650 mg Amlodipine Besylate (Norvasc) 10 mg PO DAILY [facility] Last Admin: 03/15/19 08:45 Dose: 10 mg Brimonidine Tartrate (Alphagan 0.2% Ophth Soln) 0 ml EYEBOTH TID [facility] Last Admin: 03/15/19 08:44 Dose: 1 drop Enoxaparin Sodium (Lovenox) 40 mg SUBCUT Q24H [facility] Stop: 03/31/19 14:01 Last Admin: 03/14/19 14:10 Dose: 40 mg Heparin Sodium (Porcine) (Heparin Lock Flush 100 Units/Ml) 300 units FLUSH Q24H [facility] Last Admin: 03/14/19 10:41 Dose: 300 units Heparin Sodium (Porcine) (Heparin Lock Flush 100 Units/Ml) 300 units FLUSH ASDIRECTED PRN PRN Reason: AFTER USE Last Admin: 03/15/19 08:34 Dose: 300 units Vancomycin HCl 750 mg/Vancomycin HCl 500 mg/ Sodium Chloride 250 mls @ 166.667 mls/hr IV Q24H [facility] Stop: 04/10/19 12:00 Last Admin: 03/14/19 09:09 Dose: 166.667 mls/hr Amino Ac/Electrol/Dextrose/Calcium (Clinimix E 5/15) 1,000 mls @ 84 mls/hr IV Q24H [facility] Last Admin: 03/14/19 20:46 Dose: 84 mls/hr Fat Emulsion Intravenous (Intralipid 20%) 250 mls @ 22 mls/hr IV [id number]@2100 [facility] Last Admin: 03/12/19 20:59 Dose: 22 mls/hr Latanoprost (Xalatan 0.005% [facility] Soln) 0 ml EYEBOTH BEDTIME [facility] Last Admin: 03/14/19 20:39 Dose: 1 drop Metoprolol Tartrate (Lopressor) 25 mg PO BID [facility] Last Admin: 03/15/19 08:46 Dose: 25 mg Mirtazapine (Remeron) 7.5 mg PO BEDTIME [facility] Last Admin: 03/14/19 20:38 Dose: 7.5 mg Multivitamins/Minerals/Vitamin C (Tab-A-Dawna) 1 tab PO DAILY [facility] Last Admin: 03/15/19 08:45 Dose: 1 tab Rifampin (Rifampin) 600 mg PO DAILY [facility] Stop: 04/10/19 09:01 Last Admin: 03/15/19 08:45 Dose: 600 mg Senna/Docusate Sodium (Senna Plus) 1 tab PO BID PRN PRN Reason: constipation Last Admin: 03/14/19 00:35 Dose: 1 tab Simvastatin (Zocor) 40 mg PO BEDTIME [facility] Last Admin: 03/14/19 20:39 Dose: 40 mg Sodium Chloride (Saline Flush) 10 ml FLUSH ASDIRECTED PRN PRN Reason: Keep Vein Open Last Admin: 03/15/19 08:34 Dose: 10 ml Tramadol HCl (Ultram) 50 mg PO Q6H PRN PRN Reason: Pain Last Admin: 03/15/19 06:09 Dose: 50 mg Vancomycin HCl (Pharmacy To Dose - Vancomycin) 1 dose .XX ASDIRECTED [facility] Vit C/Vit E/Zinc/Copper/Lutein (Ocuvite Lutein) 1 each PO BID [facility] Last Admin: 03/15/19 08:44 Dose: 1 each Discontinued Medications Acetaminophen (Tylenol) 650 mg PO Q6H PRN PRN Reason: Pain Last Admin: 03/04/19 23:43 Dose: 650 mg Furosemide (Lasix) 10 mg PO BIDDIURETIC [facility] Last Admin: 03/11/19 08:54 Dose: 10 mg Amino Ac/Electrol/Dextrose/Calcium (Clinimix E 12/09) 1,000 mls @ 42 mls/hr IV ONETIME ONE Stop: 03/12/19 10:48 Last Admin: 03/11/19 11:40 Dose: 42 mls/hr Senna/Docusate Sodium (Senna Plus) 2 tab PO BID PRN PRN Reason: CONSTIPATION Last Admin: 03/07/19 15:23 Dose: 2 tab Senna/Docusate Sodium (Senna Plus) 1 tab PO BID [facility] Last Admin: 03/08/19 16:44 Dose: Not Given - Exam General: Alert, Oriented, Cooperative Lungs: Normal Respiratory Effort Wound/Incisions: Healing Well Psy/Mental Status: Alert, Normal Affect - Problem List & Annotations (1) MRSA bacteremia SNOMED Code(s): 34762978067781524 Code(s): R78.81 - BACTEREMIA Status: Acute Current Visit: Yes Annotation/Comment:: 6 weeks of IV vancomycin and po rifampin, will complete Apr 15 (2) Septic arthritis of hip SNOMED Code(s): 120507960 Code(s): M00.9 - PYOGENIC ARTHRITIS, UNSPECIFIED Status: Acute Current Visit: Yes Qualifiers: Septic arthritis organism: staphylococcal (3) Weakness SNOMED Code(s): 55137784 Code(s): R53.1 - WEAKNESS Status: Acute Current Visit: Yes Annotation/ Comment:: improving - Problem List Review Problem List Initiated/Reviewed/Updated: Yes - My Orders Last 24 Hours: My Active Orders 03/15/19 09:23 Remove Mi Catheter [Urinary Catheter Removal] [RC] Per Unit Routine 03/15/19 09:27 Urinary Catheter Assessment [RC] QSHIFT 03/15/19 09:30 Insert Urinary Catheter [OM.PC] Q24H - Plan Plan:: 1. DC Mi catheter. Start straight cathetering every 6 hours when necessary for BladderScan over 500 mL. 2. Encouraged the patient to do his PT/OT and to try to start eating. Also talked to him what happened if he does need in which the alternatives are not good. He understands that.
[2019-03-15] MEDS: Vancomycin 750 MG, Vancomycin 500 MG in Sodium Chloride 0.9% 250 ML IV SCH (11:05)
[2019-03-15] MEDS: Enoxaparin 40 MG/0.4 ML Syringe SUBCUT SCH (14:20)
[2019-03-15] MEDS: Latanoprost 0.005% Ophth Soln 2.5 ML Bottle EYEBOTH SCH (20:49)
[2019-03-15] MEDS: Simvastatin 40 MG Tab PO SCH (20:50)
[2019-03-15] MEDS: Mirtazapine 15 MG Tab PO SCH (20:51)
[2019-03-15] MEDS: AA 5%/Calcium/D15W/Lytes 1,000 ML IV SCH (21:16)
[2019-03-15] MEDS: Fat Emulsion 250 ML IV SCH (21:17)
[2019-03-16] MEDS: Metoprolol Tartrate 25 MG Tab PO SCH ×2 (08:14→20:24)
[2019-03-16] MEDS: Brimonidine 0.2% Ophth Soln 5 ML Bottle EYEBOTH SCH ×3 (08:14→20:23)
[2019-03-16] MEDS: Acetaminophen 325 MG Tab PO SCH ×3 (08:15→20:25)
[2019-03-16] MEDS: Multivitamin Tab PO SCH (08:15)
[2019-03-16] MEDS: amLODIPine 10 MG Tab PO SCH (08:15)
[2019-03-16] MEDS: Rifampin 300 MG Cap PO SCH (08:15)
[2019-03-16] MEDS: Lutein/Minerals/Vitamin C/Vitamin E Acetate Cap PO SCH ×2 (08:15→20:24)
[2019-03-16] MEDS: Sodium Chloride 0.9% 10 ML Syringe FLUSH PRN ×3 (10:03→20:27)
[2019-03-16] MEDS: Vancomycin 750 MG, Vancomycin 500 MG in Sodium Chloride 0.9% 250 ML IV SCH (10:14)
[2019-03-16] MEDS: Enoxaparin 40 MG/0.4 ML Syringe SUBCUT SCH (13:27)
[2019-03-16] MEDS: Mirtazapine 15 MG Tab PO SCH (20:25)
[2019-03-16] MEDS: Simvastatin 40 MG Tab PO SCH (20:26)
[2019-03-16] MEDS: Latanoprost 0.005% Ophth Soln 2.5 ML Bottle EYEBOTH SCH (20:26)
[2019-03-16] MEDS: AA 5%/Calcium/D15W/Lytes 1,000 ML IV SCH (20:27)
[2019-03-17] MEDS: Sodium Chloride 0.9% 10 ML Syringe FLUSH PRN ×2 (08:30→09:23)
[2019-03-17] MEDS: Brimonidine 0.2% Ophth Soln 5 ML Bottle EYEBOTH SCH ×3 (08:32→20:29)
[2019-03-17] MEDS: Lutein/Minerals/Vitamin C/Vitamin E Acetate Cap PO SCH ×2 (08:36→20:30)
[2019-03-17] MEDS: Rifampin 300 MG Cap PO SCH (08:36)
[2019-03-17] MEDS: amLODIPine 10 MG Tab PO SCH (08:36)
[2019-03-17] MEDS: Metoprolol Tartrate 25 MG Tab PO SCH ×2 (08:36→20:29)
[2019-03-17] MEDS: Multivitamin Tab PO SCH (08:37)
[2019-03-17] MEDS: Acetaminophen 325 MG Tab PO SCH ×3 (08:37→20:31)
[2019-03-17] MEDS: Vancomycin 750 MG, Vancomycin 500 MG in Sodium Chloride 0.9% 250 ML IV SCH (09:22)
[2019-03-17] MEDS: traMADol 50 MG Tab PO PRN ×2 (09:23→17:20)
[2019-03-17] MEDS: AA 5%/Calcium/D15W/Lytes 1,000 ML IV SCH (11:45)
[2019-03-17] MEDS: Enoxaparin 40 MG/0.4 ML Syringe SUBCUT SCH (14:18)
[2019-03-17] MEDS: Mirtazapine 15 MG Tab PO SCH (20:30)
[2019-03-17] MEDS: Latanoprost 0.005% Ophth Soln 2.5 ML Bottle EYEBOTH SCH (20:31)
[2019-03-17] MEDS: Simvastatin 40 MG Tab PO SCH (20:31)
[2019-03-18] MEDS: Fat Emulsion 250 ML IV SCH ×2 (00:48→21:19)
[2019-03-18] MEDS: AA 5%/Calcium/D15W/Lytes 1,000 ML IV SCH ×2 (00:59→14:35)
[2019-03-18] MEDS: Brimonidine 0.2% Ophth Soln 5 ML Bottle EYEBOTH SCH ×3 (08:33→21:21)
[2019-03-18] MEDS: amLODIPine 10 MG Tab PO SCH (08:34)
[2019-03-18] MEDS: Acetaminophen 325 MG Tab PO SCH ×3 (08:34→21:25)
[2019-03-18] MEDS: Lutein/Minerals/Vitamin C/Vitamin E Acetate Cap PO SCH ×2 (08:34→21:22)
[2019-03-18] MEDS: Metoprolol Tartrate 25 MG Tab PO SCH ×2 (08:35→21:31)
[2019-03-18] MEDS: Multivitamin Tab PO SCH (08:35)
[2019-03-18] MEDS: Rifampin 300 MG Cap PO SCH (08:35)
[2019-03-18] MEDS: Sodium Chloride 0.9% 10 ML Syringe FLUSH PRN (08:41)
--- NOTE | 2019-03-18 09:20 | PCM.PN ---
- General Info Date of Service: 03/18/19 Admission Dx/Problem (Free Text): The nurses stated he had a temperature 101. I went to talk to the patient. He says he feels fine. He denies been hot or cold, clammy. He denies runny nose, sore throat, ear pain, chest pain, shortness of breath, wheezing, cough, diarrhea. He has a catheter in and that's felt well 2. He did that a week ago and we didn't find anything. - Patient Data Vitals - Most Recent: Last Vital Signs Temp 99.0 F 03/17/19 08:00 Pulse 84 03/18/19 08:35 Resp 26 H 03/17/19 08:00 BP 142/72 H 03/18/19 08:35 Pulse Ox 96 03/17/19 08:00 Weight - Most Recent: 170 lb 3.2 oz I&O - Last 24 Hours: Intake & Output 03/17/19 03/18/19 03/18/19 22:59 06:59 14:59 Intake Total 827 655 Output Total 1225 1600 Balance -398 -945 Lab Results Last 24 Hours: Laboratory Results - last 24 hr 03/17/19 03/17/19 03/17/19 Range/Units 11:47 17:23 20:37 WBC (4.5-12.0) X10-3/uL RBC (4.30-5.75) x10(6)uL Hgb (13.5-17.8) g/dL Hct (30.0-51.3) % MCV (80-96) fL MCH (27.7-33.6) pg MCHC (32.2-35.4) g/dL RDW (11.5-15.5) % Plt Count (125-369) X10(3)uL MPV (7.4-10.4) fL Neut % (Auto) (46-82) % Lymph % (Auto) (13-37) % [place] % (Auto) (4-12) % Eos % (Auto) (1.0-5.0) % Baso % (Auto) (0-2) % Neut # (Auto) (1.6-8.3) # Lymph # (Auto) (0.6-5.0) # [place] # (Auto) (0.0-1.3) # Eos # (Auto) (0.0-0.8) # Baso # (Auto) (0.0-0.2) # Sodium (135-145) mmol/L Potassium (3.5-5.3) mmol/L Chloride (100-110) mmol/L Carbon Dioxide (21-32) mmol/L BUN (7-18) mg/dL Creatinine (0.70-1.30) mg/dL Est Cr Clr Drug Dosing mL/min Estimated GFR (MDRD) (>60) BUN/Creatinine Ratio (9-20) Glucose (80-116) mg/dL POC Glucose 123 H 151 H 113 (80-116) mg/dL Calcium (8.6-10.2) mg/dL Total Bilirubin (0.1-1.3) mg/dL AST (5-25) IU/L ALT (12-36) U/L Alkaline Phosphatase (56-112) IU/L C-Reactive Protein (0.5-0.9) mg/dL Total Protein (6.0-8.0) g/dL Albumin (2.9-4.5) g/dL Globulin g/dL Albumin/Globulin Ratio Vancomycin Trough (<0.8) ug/mL 03/18/19 03/18/19 03/18/19 Range/Units 05:54 06:55 06:55 WBC (4.5-12.0) X10-3/uL RBC (4.30-5.75) x10(6)uL Hgb (13.5-17.8) g/dL Hct (30.0-51.3) % MCV (80-96) fL MCH (27.7-33.6) pg MCHC (32.2-35.4) g/dL RDW (11.5-15.5) % Plt Count (125-369) X10(3)uL MPV (7.4-10.4) fL Neut % (Auto) (46-82) % Lymph % (Auto) (13-37) % [place] % (Auto) (4-12) % Eos % (Auto) (1.0-5.0) % Baso % (Auto) (0-2) % Neut # (Auto) (1.6-8.3) # Lymph # (Auto) (0.6-5.0) # [place] # (Auto) (0.0-1.3) # Eos # (Auto) (0.0-0.8) # Baso # (Auto) (0.0-0.2) # Sodium 136 (135-145) mmol/L Potassium 4.0 (3.5-5.3) mmol/L Chloride 104 (100-110) mmol/L Carbon Dioxide 25 (21-32) mmol/L BUN 23 H (7-18) mg/dL Creatinine 1.3 (0.70-1.30) mg/dL Est Cr Clr Drug Dosing 36.02 mL/min Estimated GFR (MDRD) 52 L (>60) BUN/Creatinine Ratio 17.7 (9-20) Glucose 164 H (80-116) mg/dL POC Glucose 164 H (80-116) mg/dL Calcium 7.9 L (8.6-10.2) mg/dL Total Bilirubin 0.2 (0.1-1.3) mg/dL AST 21 (5-25) IU/L ALT 17 D (12-36) U/L Alkaline Phosphatase 55 L (56-112) IU/L C-Reactive Protein (0.5-0.9) mg/dL Total Protein 5.9 L (6.0-8.0) g/dL Albumin 1.5 L* (2.9-4.5) g/dL Globulin 4.4 g/dL Albumin/Globulin Ratio 0.3 Vancomycin Trough 20.6 H (<0.8) ug/mL 03/18/19 03/18/19 Range/Units 06:55 06:55 WBC 8.3 (4.5-12.0) X10-3/uL RBC 2.90 L (4.30-5.75) x10(6)uL Hgb 9.4 L (13.5-17.8) g/dL Hct 27.0 L (30.0-51.3) % MCV 93.3 (80-96) fL MCH 32.5 (27.7-33.6) pg MCHC 34.9 (32.2-35.4) g/dL RDW 13.8 (11.5-15.5) % Plt Count 429 H (125-369) X10(3)uL MPV 7.8 (7.4-10.4) fL Neut % (Auto) 75.7 (46-82) % Lymph % (Auto) 9.7 L (13-37) % [place] % (Auto) 7.8 (4-12) % Eos % (Auto) 6 H (1.0-5.0) % Baso % (Auto) 1 (0-2) % Neut # (Auto) 6.3 (1.6-8.3) # Lymph # (Auto) 0.8 (0.6-5.0) # [place] # (Auto) 0.6 (0.0-1.3) # Eos # (Auto) 0.5 (0.0-0.8) # Baso # (Auto) 0.1 (0.0-0.2) # Sodium (135-145) mmol/L Potassium (3.5-5.3) mmol/L Chloride (100-110) mmol/L Carbon Dioxide (21-32) mmol/L BUN (7-18) mg/dL Creatinine (0.70-1.30) mg/dL Est Cr Clr Drug Dosing mL/min Estimated GFR (MDRD) (>60) BUN/Creatinine Ratio (9-20) Glucose (80-116) mg/dL POC Glucose (80-116) mg/dL Calcium (8.6-10.2) mg/dL Total Bilirubin (0.1-1.3) mg/dL AST (5-25) IU/L ALT (12-36) U/L Alkaline Phosphatase (56-112) IU/L C-Reactive Protein 12.0 H* (0.5-0.9) mg/dL Total Protein (6.0-8.0) g/dL Albumin (2.9-4.5) g/dL Globulin g/dL Albumin/Globulin Ratio Vancomycin Trough (<0.8) ug/mL [place] Results Last 24 Hours: Microbiology 03/13/19 15:15 Aerobic Blood Culture - Preliminary Blood - Venous NO GROWTH AFTER 4 DAYS Anaerobic Blood Culture - Preliminary NO GROWTH AFTER 4 DAYS Med Orders - Current: Current Medications Acetaminophen (Tylenol) 650 mg PO TID [facility] Last Admin: 03/18/19 08:34 Dose: 650 mg Amlodipine Besylate (Norvasc) 10 mg PO DAILY [facility] Last Admin: 03/18/19 08:34 Dose: 10 mg Brimonidine Tartrate (Alphagan 0.2% Ophth Soln) 0 ml EYEBOTH TID [facility] Last Admin: 03/18/19 08:33 Dose: 1 drop Enoxaparin Sodium (Lovenox) 40 mg SUBCUT Q24H [facility] Stop: 03/31/19 14:01 Last Admin: 03/17/19 14:18 Dose: 40 mg Heparin Sodium (Porcine) (Heparin Lock Flush 100 Units/Ml) 300 units FLUSH Q24H [facility] Last Admin: 03/17/19 11:00 Dose: 300 units Heparin Sodium (Porcine) (Heparin Lock Flush 100 Units/Ml) 300 units FLUSH ASDIRECTED PRN PRN Reason: AFTER USE Last Admin: 03/16/19 10:03 Dose: 300 units Fat Emulsion Intravenous (Intralipid 20%) 250 mls @ 25 mls/hr IV [id number]@ 2100 [facility] Last Admin: 03/18/19 00:48 Dose: 25 mls/hr Amino Ac/Electrol/Dextrose/Calcium (Clinimix E 5/15) 1,000 mls @ 84 mls/hr IV Q12H [facility] Last Admin: 03/18/19 00:59 Dose: 84 mls/hr Vancomycin HCl 1 gm/ Sodium (Chloride) 250 mls @ 250 mls/hr IV Q24H [facility] Last Admin: 03/18/19 08:21 Dose: 250 mls/hr Latanoprost (Xalatan 0.005% Ophth Soln) 0 ml EYEBOTH BEDTIME [facility] Last Admin: 03/17/19 20:31 Dose: 1 drop Metoprolol Tartrate (Lopressor) 25 mg PO BID [facility] Last Admin: 03/18/19 08:35 Dose: 25 mg Mirtazapine (Remeron) 15 mg PO BEDTIME [facility] Last Admin: 03/17/19 20:30 Dose: 15 mg Multivitamins/Minerals/Vitamin C (Tab-A-Dawna) 1 tab PO DAILY [facility] Last Admin: 03/18/19 08:35 Dose: 1 tab Rifampin (Rifampin) 600 mg PO DAILY [facility] Stop: 04/10/19 09:01 Last Admin: 03/18/19 08:35 Dose: 600 mg Senna/Docusate Sodium (Senna Plus) 1 tab PO BID PRN PRN Reason: constipation Last Admin: 03/14/19 00:35 Dose: 1 tab Simvastatin (Zocor) 40 mg PO BEDTIME [facility] Last Admin: 03/17/19 20:31 Dose: 40 mg Sodium Chloride (Saline Flush) 10 ml FLUSH ASDIRECTED PRN PRN Reason: Keep Vein Open Last Admin: 03/18/19 08:41 Dose: 10 ml Tramadol HCl (Ultram) 50 mg PO Q6H PRN PRN Reason: Pain Last Admin: 03/17/19 17:20 Dose: 50 mg Vancomycin HCl (Pharmacy To Dose - Vancomycin) 1 dose .XX ASDIRECTED [facility] Vit C/Vit E/Zinc/Copper/Lutein (Ocuvite Lutein) 1 each PO BID [facility] Last Admin: 03/18/19 08:34 Dose: 1 each Discontinued Medications Acetaminophen (Tylenol) 650 mg PO Q6H PRN PRN Reason: Pain Last Admin: 03/04/19 23:43 Dose: 650 mg Furosemide (Lasix) 10 mg PO BIDDIURETIC [facility] Last Admin: 03/11/19 08:54 Dose: 10 mg Vancomycin HCl 750 mg/Vancomycin HCl 500 mg/ Sodium Chloride 250 mls @ 166.667 mls/hr IV Q24H [facility] Stop: 04/10/19 12:00 Last Admin: 03/17/19 09:22 Dose: 166.667 mls/hr Amino Ac/Electrol/Dextrose/Calcium (Clinimix E 5/15) 1,000 mls @ 42 mls/hr IV ONETIME ONE Stop: 03/12/19 10:48 Last Admin: 03/11/19 11:40 Dose: 42 mls/hr Amino Ac/Electrol/Dextrose/Calcium (Clinimix E 5/15) 1,000 mls @ 84 mls/hr IV Q24H [facility] Last Admin: 03/16/19 20:27 Dose: 84 mls/hr Fat Emulsion Intravenous (Intralipid 20%) 250 mls @ 22 mls/hr IV [id number]@2100 [facility] Last Admin: 03/15/19 21:17 Dose: 22 mls/hr Vancomycin HCl 1 gm/ Sodium (Chloride) 250 mls @ 250 mls/hr IV Q24H [facility] Mirtazapine (Remeron) 7.5 mg PO BEDTIME [facility] Last Admin: 03/14/19 20:38 Dose: 7.5 mg Senna/Docusate Sodium (Senna Plus) 2 tab PO BID PRN PRN Reason: CONSTIPATION Last Admin: 03/07/19 15:23 Dose: 2 tab Senna/Docusate Sodium (Senna Plus) 1 tab PO BID [facility] Last Admin: 03/08/19 16:44 Dose: Not Given - Exam General: Alert, Oriented, Cooperative Lungs: Clear to Auscultation, Normal Respiratory Effort. No: Crackles, Rales, Rhonchi Cardiovascular: Regular Rate, Regular Rhythm, No Murmurs GI/Abdominal Exam: Normal Bowel Sounds, Soft, Non-Tender, No Distention Back Exam: Normal Inspection Extremities: Normal Inspection, No Pedal Edema, Other (No pain on palpation of the left hip) Skin: Warm, Intact, Other (Left hip and Steri-Strips and there is no erythema, drainage.) Psy/Mental Status: Alert, Normal Affect, Normal Mood - Problem List & Annotations (1) MRSA bacteremia SNOMED Code(s): 02009311761682631 Code(s): R78.81 - BACTEREMIA Status: Acute Current Visit: Yes Annotation/Comment:: 6 weeks of IV vancomycin and po rifampin, will complete Apr 15 (2) Septic arthritis of hip SNOMED Code(s): 786468887 Code(s): M00.9 - PYOGENIC ARTHRITIS, UNSPECIFIED Status: Acute Current Visit: Yes Qualifiers: Septic arthritis organism: staphylococcal (3) Weakness SNOMED Code(s): 63823111 Code(s): R53.1 - WEAKNESS Status: Acute Current Visit: Yes Annotation/ Comment:: improving (4) Fever SNOMED Code(s): 191128393 Code(s): R50.9 - FEVER, UNSPECIFIED Status: Acute Current Visit: Yes (5) Anorexia SNOMED Code(s): 02171111 Code(s): R63.0 - ANOREXIA Status: Acute Current Visit: Yes - Problem List Review Problem List Initiated/Reviewed/Updated: Yes - My Orders Last 24 Hours: My Active Orders 03/17/19 11:00 AA 5%/Calcium/D15W/Lytes [Clinimix E 15] 1,000 ml IV Q12H 03/17/19 17:29 Chest 1V Frontal [CR] Routine 03/17/19 21:00 Fat Emulsion [Intralipid 20%] 250 ml IV [id number] 03/18/19 08:00 Vancomycin 1 gm Sodium Chloride 0.9% [Normal Saline (AdvBag)] 250 ml IV Q24H 03/18/19 08:15 Mi Catheter Insertion [Insert Urinary Catheter] [OM.PC] Q24H 03/18/19 08:50 Chest 2V [CR] Routine 03/18/19 08:53 UA W/MICROSCOPIC [URIN] Routine 03/18/19 08:55 CULTURE BLOOD [BC] Routine 03/19/19 08:15 Mi Catheter Insertion [Insert Urinary Catheter] [OM.PC] Q24H 03/20/19 08:15 Mi Catheter Insertion [Insert Urinary Catheter] [OM.PC] Q24H 03/21/19 08:15 Mi Catheter Insertion [Insert Urinary Catheter] [OM.PC] Q24H - Plan Plan:: 1. CBC, CRP, chest x-ray, UA with UC. 2. Patient failed have in his urinary catheter pulled oriented but a vacuum. The patient does get better than consider urology appointment which have not been made at this point. 3. Discuss diet with the patient. Encourage him to eat more. He says always been a light eater. His TPN was increased yesterday.
--- NOTE | 2019-03-18 11:55 | PCM.SN ---
- Free Text/Narrative Note: See her back to protein appears to be trending down. White count okay. Urine shows some yeast and 5-10 white blood cells. Chest x-ray shows no changes in fact improvement from last time. Wait for radiology interpretation. I don't see any site of infection. Blood cultures pending. Continue current care. He sees infectious disease tomorrow.
[2019-03-18] MEDS: traMADol 50 MG Tab PO PRN ×2 (14:31→21:23)
[2019-03-18] MEDS: Enoxaparin 40 MG/0.4 ML Syringe SUBCUT SCH (14:33)
--- NOTE | 2019-03-18 15:33 | CR ---
INDICATION: PICC line placement. CHEST: A single AP 45 degree upright view of the chest was obtained, 03/18/19 at 0039 hours, and compared with 03/13/19 and 02/24/19 examinations of the chest. A PICC line from the left arm was noted in place with its tip in the superior vena cava approximately 1.5 to 2 cm above the right atrium. The heart did not appear enlarged. Pulmonary vasculature is prominent in the upper lung field with interstitial changes, raising question of pulmonary vascular congestion. Since the heart is not grossly enlarged, the possibility of a process such as renal failure or fluid overload would be a consideration. The possibility of some minimal alveolar edema with infiltrates in the right mid lung field and both lung bases would also be a consideration. Healed or healing fractures are noted times 3 posterolaterally on the left. Evidence of median sternotomy is noted. The aorta is tortuous. IMPRESSION: Findings have an appearance compatible with pulmonary vascular congestion. This could be on the basis of fluid overload, renal failure, or acute myocardial infarction with CHF - correlate clinically. MTDD
--- NOTE | 2019-03-18 15:38 | CR ---
INDICATION: Temperature of 101. CHEST: AP and lateral views of the chest were obtained, 03/18/19 at 0949 hours , and compared with 03/18/19 at 0039 hours and also compared with 03/13/19 and 02/24/19 examinations of the chest. Bibasilar pleural parenchymal changes are again noted but appear to be diminishing in severity, compatible with resolving pneumonia and pleuritis. A new acute process was not suggested. PICC line remains in place, essentially unchanged in position. The heart was not grossly enlarged, allowing for the AP positioning. Calcification is minimal in the arch of the aorta, which is slightly tortuous. Bony structures appear to be grossly intact, except to note posterolateral healing fractures times three on the left. IMPRESSION: 1. No new acute process. 2. Probable resolving bibasilar pneumonia and pleuritis. 3. ASHD with post median sternotomy change. MTDD
[2019-03-18] MEDS: Latanoprost 0.005% Ophth Soln 2.5 ML Bottle EYEBOTH SCH (21:26)
[2019-03-18] MEDS: Simvastatin 40 MG Tab PO SCH (21:27)
[2019-03-18] MEDS: Mirtazapine 15 MG Tab PO SCH (21:31)
[2019-03-19] MEDS: AA 5%/Calcium/D15W/Lytes 1,000 ML IV SCH ×2 (02:51→13:29)
[2019-03-19] MEDS: traMADol 50 MG Tab PO PRN ×2 (08:24→16:56)
[2019-03-19] MEDS: Metoprolol Tartrate 25 MG Tab PO SCH ×2 (08:28→20:29)
[2019-03-19] MEDS: Lutein/Minerals/Vitamin C/Vitamin E Acetate Cap PO SCH ×2 (08:28→20:29)
[2019-03-19] MEDS: amLODIPine 10 MG Tab PO SCH (08:28)
[2019-03-19] MEDS: Brimonidine 0.2% Ophth Soln 5 ML Bottle EYEBOTH SCH ×3 (08:28→20:26)
[2019-03-19] MEDS: Multivitamin Tab PO SCH (08:29)
[2019-03-19] MEDS: Acetaminophen 325 MG Tab PO SCH ×3 (08:29→20:25)
[2019-03-19] MEDS: Rifampin 300 MG Cap PO SCH (08:29)
[2019-03-19] MEDS: Sodium Chloride 0.9% 10 ML Syringe FLUSH PRN (13:29)
[2019-03-19] MEDS: Enoxaparin 40 MG/0.4 ML Syringe SUBCUT SCH (13:32)
[2019-03-19] MEDS: Latanoprost 0.005% Ophth Soln 2.5 ML Bottle EYEBOTH SCH (20:28)
[2019-03-19] MEDS: Mirtazapine 15 MG Tab PO SCH (20:30)
[2019-03-19] MEDS: Simvastatin 40 MG Tab PO SCH (20:30)
[2019-03-19] MEDS: Fat Emulsion 250 ML IV SCH (20:37)
[2019-03-20] MEDS: AA 5%/Calcium/D15W/Lytes 1,000 ML IV SCH ×2 (01:27→14:55)
[2019-03-20] MEDS: Sodium Chloride 0.9% 10 ML Syringe FLUSH PRN ×2 (08:03→09:51)
[2019-03-20] MEDS: traMADol 50 MG Tab PO PRN ×3 (08:03→21:39)
[2019-03-20] MEDS: Brimonidine 0.2% Ophth Soln 5 ML Bottle EYEBOTH SCH ×3 (08:04→21:13)
[2019-03-20] MEDS: Metoprolol Tartrate 25 MG Tab PO SCH ×2 (09:13→21:12)
[2019-03-20] MEDS: Rifampin 300 MG Cap PO SCH (09:14)
[2019-03-20] MEDS: amLODIPine 10 MG Tab PO SCH (09:14)
[2019-03-20] MEDS: Multivitamin Tab PO SCH (09:14)
[2019-03-20] MEDS: Lutein/Minerals/Vitamin C/Vitamin E Acetate Cap PO SCH ×2 (09:14→21:13)
[2019-03-20] MEDS: Acetaminophen 325 MG Tab PO SCH ×3 (09:15→21:14)
[2019-03-20] MEDS: Enoxaparin 40 MG/0.4 ML Syringe SUBCUT SCH (13:30)
[2019-03-20] MEDS: Mirtazapine 15 MG Tab PO SCH (21:13)
[2019-03-20] MEDS: Latanoprost 0.005% Ophth Soln 2.5 ML Bottle EYEBOTH SCH (21:13)
[2019-03-21] MEDS: AA 5%/Calcium/D15W/Lytes 1,000 ML IV SCH ×3 (03:11→17:14)
[2019-03-21] MEDS: Metoprolol Tartrate 25 MG Tab PO SCH ×2 (09:09→20:58)
[2019-03-21] MEDS: Multivitamin Tab PO SCH (09:10)
[2019-03-21] MEDS: Lutein/Minerals/Vitamin C/Vitamin E Acetate Cap PO SCH ×2 (09:10→20:54)
[2019-03-21] MEDS: Acetaminophen 325 MG Tab PO SCH ×3 (09:11→20:57)
[2019-03-21] MEDS: Rifampin 300 MG Cap PO SCH (09:11)
[2019-03-21] MEDS: Brimonidine 0.2% Ophth Soln 5 ML Bottle EYEBOTH SCH ×3 (09:12→20:52)
[2019-03-21] MEDS: amLODIPine 5 MG Tab PO SCH (09:28)
[2019-03-21] MEDS: Enoxaparin 40 MG/0.4 ML Syringe SUBCUT SCH (13:49)
[2019-03-21] MEDS: traMADol 50 MG Tab PO PRN (17:19)
[2019-03-21] MEDS: Mirtazapine 15 MG Tab PO SCH (20:54)
[2019-03-21] MEDS: Latanoprost 0.005% Ophth Soln 2.5 ML Bottle EYEBOTH SCH (20:57)
[2019-03-22] MEDS: AA 5%/Calcium/D15W/Lytes 1,000 ML IV SCH ×2 (05:02→18:35)
[2019-03-22] MEDS: Sodium Chloride 0.9% 10 ML Syringe FLUSH PRN ×3 (06:58→10:08)
[2019-03-22] MEDS: traMADol 50 MG Tab PO PRN (07:25)
[2019-03-22] MEDS: Brimonidine 0.2% Ophth Soln 5 ML Bottle EYEBOTH SCH ×3 (09:05→20:27)
--- NOTE | 2019-03-22 09:07 | PN ---
DATE SEEN: 03/20/2019 SUBJECTIVE: Osman is an 88-year-old man who was admitted to acute care at [facility] on February 23, 2019, with hip pain. This was status post a left hip arthroplasty, and evaluation strongly suggested septic arthritis on the left. While hospitalized, he developed an acute superimposed pneumonia, became septic, and he was transferred to [facility] for Orthopedic and Internal Medicine admission. His antibiotics were continued. His hip was debrided and found to have a MRSA infection. He was started on IV vancomycin and oral rifampin and discharged back to swing bed at [facility] on 03/04/2019. He has continued on his antibiotics. Yesterday, he had a followup appointment at [facility] with his Infectious Disease doctor. They continued his rifampin and vancomycin. The dose was adjusted downward yesterday because of a high trough level. They also scheduled him to switch over to on April 11, 2019. Also ordered were continuing the vancomycin trough levels. He remains on peripheral alimentation with D15 and protein solution, and he remains in infectious diseases precautions due to his MRSA infection. The patient is examined today in his room, while in bed. OBJECTIVE: GENERAL: It is immediately apparent on history taking that he is quite confused and forgetful. VITAL SIGNS: Blood pressure 138/57, pulse 91 and regular, respirations normal, and O2 saturation 95% on room air. Weight 168 pounds. Temp 99.9. His temp was up to 101 two days ago. SKIN: Shows no rash. No open incisions are present. Left hip incision has healed. MOUTH: Dry. LUNGS: Have clear air entry anteriorly. HEART: Regular with an occasional extra systole. No murmurs heard. ABDOMEN: Normal to slightly hypoactive bowel sounds. Soft and nontender. MUSCULOSKELETAL: Extremities show trace edema at the ankles. There is pain on internal and external rotation of the left hip, that is only mild to moderate in nature. Right hip is comfortable. LABORATORY DATA: Accu-Cheks running from 150 to 200 range. Hemoglobin 9.4, platelets 429,000, and white count 8,300. Electrolytes normal. BUN 23 and creatinine 1.3 for an estimated GFR of 52. CRP 12. Albumin 1.5. Vancomycin trough done 2 days ago, 20.6, dose adjusted downward since. Urine culture, 2 days ago, showed yeast. PICC line culture was negative. ASSESSMENT: 1. 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 2. Delirium with underlying dementia. 3. Methicillin-resistant Staphylococcus aureus infection. 4. Hypertension. 5. On peripheral alimentation with essentially zero oral caloric intake. 6. History of hyperlipidemia. PLAN: At this time, orders are in place per Infectious Disease for continuing his current treatment. We will discontinue his statin and his Norvasc. Continue to monitor blood pressure. Continue the metoprolol and mirtazapine. We will continue to provide palliative care measures for Mr. James' underlying medical problems including dementia, generalized weakness, low nutrition, etc. Follow up routinely. Discharged to home environment at this time is very unlikely and long-term plans would likely require long-term care placement. /[id number] EDUARDO/LARS
[2019-03-22] MEDS: Metoprolol Tartrate 25 MG Tab PO SCH ×2 (09:10→20:28)
[2019-03-22] MEDS: amLODIPine 5 MG Tab PO SCH (09:10)
[2019-03-22] MEDS: Acetaminophen 325 MG Tab PO SCH ×3 (09:11→20:29)
[2019-03-22] MEDS: Lutein/Minerals/Vitamin C/Vitamin E Acetate Cap PO SCH ×2 (09:11→20:28)
[2019-03-22] MEDS: Rifampin 300 MG Cap PO SCH (09:11)
[2019-03-22] MEDS: Multivitamin Tab PO SCH (09:12)
[2019-03-22] MEDS: Enoxaparin 40 MG/0.4 ML Syringe SUBCUT SCH (14:33)
[2019-03-22] MEDS: Latanoprost 0.005% Ophth Soln 2.5 ML Bottle EYEBOTH SCH (20:26)
[2019-03-22] MEDS: Mirtazapine 15 MG Tab PO SCH (20:29)
[2019-03-22] MEDS: Fat Emulsion 250 ML IV SCH (20:36)
[2019-03-23] MEDS: AA 5%/Calcium/D15W/Lytes 1,000 ML IV SCH ×2 (06:16→18:45)
[2019-03-23] MEDS: Sodium Chloride 0.9% 10 ML Syringe FLUSH PRN ×3 (08:40→18:44)
[2019-03-23] MEDS: Acetaminophen 325 MG Tab PO SCH ×3 (08:44→20:22)
[2019-03-23] MEDS: Rifampin 300 MG Cap PO SCH (08:44)
[2019-03-23] MEDS: amLODIPine 5 MG Tab PO SCH (08:44)
[2019-03-23] MEDS: Brimonidine 0.2% Ophth Soln 5 ML Bottle EYEBOTH SCH ×3 (08:44→20:21)
[2019-03-23] MEDS: Multivitamin Tab PO SCH (08:45)
[2019-03-23] MEDS: Metoprolol Tartrate 25 MG Tab PO SCH ×2 (08:45→20:52)
[2019-03-23] MEDS: Lutein/Minerals/Vitamin C/Vitamin E Acetate Cap PO SCH ×2 (08:45→20:22)
[2019-03-23] MEDS: Enoxaparin 40 MG/0.4 ML Syringe SUBCUT SCH (14:03)
[2019-03-23] MEDS: Latanoprost 0.005% Ophth Soln 2.5 ML Bottle EYEBOTH SCH (20:22)
[2019-03-23] MEDS: Mirtazapine 15 MG Tab PO SCH (20:22)
[2019-03-23] MEDS: Fat Emulsion 250 ML IV SCH (20:52)
[2019-03-24] MEDS: AA 5%/Calcium/D15W/Lytes 1,000 ML IV SCH ×2 (06:50→20:48)
[2019-03-24] MEDS: Sodium Chloride 0.9% 10 ML Syringe FLUSH PRN (07:31)
[2019-03-24] MEDS: amLODIPine 5 MG Tab PO SCH (09:03)
[2019-03-24] MEDS: Brimonidine 0.2% Ophth Soln 5 ML Bottle EYEBOTH SCH ×3 (09:03→20:58)
[2019-03-24] MEDS: Acetaminophen 325 MG Tab PO SCH ×3 (09:04→20:59)
[2019-03-24] MEDS: Metoprolol Tartrate 25 MG Tab PO SCH ×2 (09:04→20:58)
[2019-03-24] MEDS: Lutein/Minerals/Vitamin C/Vitamin E Acetate Cap PO SCH ×2 (09:04→20:59)
[2019-03-24] MEDS: Rifampin 300 MG Cap PO SCH (09:04)
[2019-03-24] MEDS: Multivitamin Tab PO SCH (09:04)
[2019-03-24] MEDS: traMADol 50 MG Tab PO PRN (09:56)
[2019-03-24] MEDS: Enoxaparin 40 MG/0.4 ML Syringe SUBCUT SCH (14:53)
[2019-03-24] MEDS: Fat Emulsion 250 ML IV SCH (20:54)
[2019-03-24] MEDS: Latanoprost 0.005% Ophth Soln 2.5 ML Bottle EYEBOTH SCH (20:58)
[2019-03-24] MEDS: Mirtazapine 15 MG Tab PO SCH (21:00)
[2019-03-25] MEDS: Sodium Chloride 0.9% 10 ML Syringe FLUSH PRN ×2 (08:12→09:26)
[2019-03-25] MEDS: Lutein/Minerals/Vitamin C/Vitamin E Acetate Cap PO SCH ×2 (08:18→21:17)
[2019-03-25] MEDS: Brimonidine 0.2% Ophth Soln 5 ML Bottle EYEBOTH SCH ×3 (08:18→21:13)
[2019-03-25] MEDS: Rifampin 300 MG Cap PO SCH (08:19)
[2019-03-25] MEDS: Acetaminophen 325 MG Tab PO SCH ×3 (08:19→21:16)
[2019-03-25] MEDS: Multivitamin Tab PO SCH (08:19)
[2019-03-25] MEDS: Metoprolol Tartrate 25 MG Tab PO SCH ×2 (08:19→21:15)
[2019-03-25] MEDS: AA 5%/Calcium/D15W/Lytes 1,000 ML IV SCH ×3 (10:59→23:14)
--- NOTE | 2019-03-25 11:46 | PN ---
DATE SEEN: 03/25/2019 HISTORY: Osman is an 88-year-old man, who was admitted to [facility] on February 23 with hip pain. 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 He was transferred to [place] and underwent open debridement demonstrating a MRSA infection. He was started on IV antibiotics and was discharged to [facility] bed, where he has been now since approximately 03/04/2019. Complicating his hospitalization has been a right lower lobe pneumonia that was acutely treated, delirium with underlying dementia, and general debility with poor oral intake, requiring peripheral alimentation. He has been followed by Dr. Lillian Lares from Infectious Disease at [facility] in [place], who is directing his antibiotic therapy. PHYSICAL EXAMINATION: GENERAL: He is awake and talkative, but obviously very forgetful. VITAL SIGNS: Blood pressure 151/69, pulse 90 and regular, respirations normal, O2 saturation 95% on room air. Weight 158 pounds 7 ounces, this is down 26 pounds since his admission. SKIN: Anicteric, warm, dry without rash. HEENT: Mouth is dry. LUNGS: Clear. HEART: Regular without murmur. ABDOMEN: Normal bowel sounds. Soft and nontender. MUSCULOSKELETAL: He has 1+ edema at the ankles, left slightly greater than right. He has stiffness to internal-external rotation at the left hip, but does not describe pain with mild motion. CURRENT LABORATORY: White count 9,500, hemoglobin 9.5. Sodium 134, potassium 4.4, BUN 47, creatinine 1.3, albumin 1.8. Last vancomycin trough level 17, dose was decreased to 1 g IV every 24 hours. He also remains on Bactrim and rifampin. ASSESSMENT: 1. An 88-year-old man, now with severe debility, weakness, poor oral intake, and weight loss, post I and D of infected left hip prosthesis with MRSA. 2. Severe nutritional deficiency, on peripheral alimentation, as well as oral intake. 3. Hypertension. 4. Delirium upon dementia. 5. Chronic kidney disease, stage 3. 6. Anemia. PLAN: We will continue his antibiotic therapy as directed by Dr. Lares. We will continue to provide nutritional support as able. Because of his underlying dementia, it is unlikely he would be able to return to his independent living as before. We will plan to meet with the family regarding long-term care placement. He is due to finish his IV vancomycin on April 11. /[id number] EDUARDO/LARS
[2019-03-25] MEDS: Enoxaparin 40 MG/0.4 ML Syringe SUBCUT SCH (13:14)
[2019-03-25] MEDS: Fat Emulsion 250 ML IV SCH (21:05)
[2019-03-25] MEDS: Latanoprost 0.005% Ophth Soln 2.5 ML Bottle EYEBOTH SCH (21:16)
[2019-03-25] MEDS: Mirtazapine 15 MG Tab PO SCH (21:17)
[2019-03-26] MEDS: Sodium Chloride 0.9% 10 ML Syringe FLUSH PRN ×2 (08:27→09:32)
[2019-03-26] MEDS: Brimonidine 0.2% Ophth Soln 5 ML Bottle EYEBOTH SCH ×3 (08:28→20:22)
[2019-03-26] MEDS: Metoprolol Tartrate 25 MG Tab PO SCH ×2 (08:29→20:23)
[2019-03-26] MEDS: Multivitamin Tab PO SCH (08:29)
[2019-03-26] MEDS: Rifampin 300 MG Cap PO SCH (08:30)
[2019-03-26] MEDS: Acetaminophen 325 MG Tab PO SCH ×3 (08:30→20:24)
[2019-03-26] MEDS: Lutein/Minerals/Vitamin C/Vitamin E Acetate Cap PO SCH ×2 (08:30→20:23)
[2019-03-26] MEDS: AA 5%/Calcium/D15W/Lytes 1,000 ML IV SCH ×2 (13:12→22:57)
[2019-03-26] MEDS: Enoxaparin 40 MG/0.4 ML Syringe SUBCUT SCH (13:15)
[2019-03-26] MEDS: Mirtazapine 15 MG Tab PO SCH (20:23)
[2019-03-26] MEDS: Latanoprost 0.005% Ophth Soln 2.5 ML Bottle EYEBOTH SCH (20:24)
[2019-03-26] MEDS: Fat Emulsion 250 ML IV SCH (20:31)
[2019-03-27] MEDS: Rifampin 300 MG Cap PO SCH (08:00)
[2019-03-27] MEDS: Acetaminophen 325 MG Tab PO SCH ×3 (08:00→20:21)
[2019-03-27] MEDS: Brimonidine 0.2% Ophth Soln 5 ML Bottle EYEBOTH SCH ×3 (08:00→20:19)
[2019-03-27] MEDS: Multivitamin Tab PO SCH (08:01)
[2019-03-27] MEDS: Lutein/Minerals/Vitamin C/Vitamin E Acetate Cap PO SCH ×2 (08:01→20:20)
[2019-03-27] MEDS: Metoprolol Tartrate 25 MG Tab PO SCH ×2 (08:04→20:20)
[2019-03-27] MEDS: Sodium Chloride 0.9% 10 ML Syringe FLUSH PRN ×3 (08:05→10:42)
[2019-03-27] MEDS: AA 5%/Calcium/D15W/Lytes 1,000 ML IV SCH ×2 (12:43→22:45)
[2019-03-27] MEDS: Enoxaparin 40 MG/0.4 ML Syringe SUBCUT SCH (14:54)
[2019-03-27] MEDS: Mirtazapine 15 MG Tab PO SCH (20:20)
[2019-03-27] MEDS: Latanoprost 0.005% Ophth Soln 2.5 ML Bottle EYEBOTH SCH (20:21)
[2019-03-28] MEDS: Sodium Chloride 0.9% 10 ML Syringe FLUSH PRN ×2 (07:39→10:23)
[2019-03-28] MEDS: Brimonidine 0.2% Ophth Soln 5 ML Bottle EYEBOTH SCH ×3 (09:17→20:23)
[2019-03-28] MEDS: Rifampin 300 MG Cap PO SCH (09:17)
[2019-03-28] MEDS: Acetaminophen 325 MG Tab PO SCH ×3 (09:17→20:23)
[2019-03-28] MEDS: Metoprolol Tartrate 25 MG Tab PO SCH ×2 (09:18→20:24)
[2019-03-28] MEDS: Lutein/Minerals/Vitamin C/Vitamin E Acetate Cap PO SCH ×2 (09:18→20:24)
[2019-03-28] MEDS: Multivitamin Tab PO SCH (09:18)
[2019-03-28] MEDS: AA 5%/Calcium/D15W/Lytes 1,000 ML IV SCH (13:21)
[2019-03-28] MEDS: Enoxaparin 40 MG/0.4 ML Syringe SUBCUT SCH (14:43)
[2019-03-28] MEDS: Mirtazapine 15 MG Tab PO SCH (20:24)
[2019-03-28] MEDS: Latanoprost 0.005% Ophth Soln 2.5 ML Bottle EYEBOTH SCH (20:26)
[2019-03-29] MEDS: AA 5%/Calcium/D15W/Lytes 1,000 ML IV SCH ×2 (00:44→14:07)
[2019-03-29] MEDS: Sodium Chloride 0.9% 10 ML Syringe FLUSH PRN ×2 (07:05→09:00)
[2019-03-29] MEDS: Acetaminophen 325 MG Tab PO SCH ×3 (08:01→20:25)
[2019-03-29] MEDS: Brimonidine 0.2% Ophth Soln 5 ML Bottle EYEBOTH SCH ×3 (08:01→20:23)
[2019-03-29] MEDS: Metoprolol Tartrate 25 MG Tab PO SCH ×2 (08:02→20:27)
[2019-03-29] MEDS: Rifampin 300 MG Cap PO SCH (08:02)
[2019-03-29] MEDS: Lutein/Minerals/Vitamin C/Vitamin E Acetate Cap PO SCH ×2 (08:02→20:27)
[2019-03-29] MEDS: Multivitamin Tab PO SCH (08:03)
[2019-03-29] MEDS: Enoxaparin 40 MG/0.4 ML Syringe SUBCUT SCH (13:10)
[2019-03-29] MEDS: Mirtazapine 15 MG Tab PO SCH (20:26)
[2019-03-29] MEDS: Latanoprost 0.005% Ophth Soln 2.5 ML Bottle EYEBOTH SCH (20:26)
[2019-03-29] MEDS: Fat Emulsion 250 ML IV SCH (20:32)
[2019-03-30] MEDS: AA 5%/Calcium/D15W/Lytes 1,000 ML IV SCH ×2 (02:38→15:49)
[2019-03-30] MEDS: Brimonidine 0.2% Ophth Soln 5 ML Bottle EYEBOTH SCH ×3 (08:08→20:02)
[2019-03-30] MEDS: Lutein/Minerals/Vitamin C/Vitamin E Acetate Cap PO SCH ×2 (08:09→20:02)
[2019-03-30] MEDS: Multivitamin Tab PO SCH (08:09)
[2019-03-30] MEDS: Metoprolol Tartrate 25 MG Tab PO SCH ×2 (08:09→20:02)
[2019-03-30] MEDS: Rifampin 300 MG Cap PO SCH (08:09)
[2019-03-30] MEDS: Acetaminophen 325 MG Tab PO SCH ×3 (08:10→20:03)
[2019-03-30] MEDS: Enoxaparin 40 MG/0.4 ML Syringe SUBCUT SCH (14:46)
[2019-03-30] MEDS: Latanoprost 0.005% Ophth Soln 2.5 ML Bottle EYEBOTH SCH (20:03)
[2019-03-30] MEDS: Mirtazapine 15 MG Tab PO SCH (20:03)
[2019-03-30] MEDS: Fat Emulsion 250 ML IV SCH (20:07)
[2019-03-31] MEDS: AA 5%/Calcium/D15W/Lytes 1,000 ML IV SCH ×2 (03:20→17:02)
[2019-03-31] MEDS: Sodium Chloride 0.9% 10 ML Syringe FLUSH PRN ×2 (07:42→11:02)
[2019-03-31] MEDS: Brimonidine 0.2% Ophth Soln 5 ML Bottle EYEBOTH SCH ×3 (09:09→20:19)
[2019-03-31] MEDS: Lutein/Minerals/Vitamin C/Vitamin E Acetate Cap PO SCH ×2 (09:09→20:22)
[2019-03-31] MEDS: Acetaminophen 325 MG Tab PO SCH ×3 (09:09→20:22)
[2019-03-31] MEDS: Multivitamin Tab PO SCH (09:10)
[2019-03-31] MEDS: Rifampin 300 MG Cap PO SCH (09:10)
[2019-03-31] MEDS: Metoprolol Tartrate 25 MG Tab PO SCH ×2 (09:12→20:22)
[2019-03-31] MEDS: Enoxaparin 40 MG/0.4 ML Syringe SUBCUT SCH (13:48)
[2019-03-31] MEDS: Mirtazapine 15 MG Tab PO SCH (20:22)
[2019-03-31] MEDS: Latanoprost 0.005% Ophth Soln 2.5 ML Bottle EYEBOTH SCH (20:23)
[2019-03-31] MEDS: Fat Emulsion 250 ML IV SCH (20:29)
[2019-04-01] MEDS: AA 5%/Calcium/D15W/Lytes 1,000 ML IV SCH ×2 (05:12→18:51)
[2019-04-01] MEDS: Acetaminophen 325 MG Tab PO SCH ×3 (08:39→21:29)
[2019-04-01] MEDS: Brimonidine 0.2% Ophth Soln 5 ML Bottle EYEBOTH SCH ×3 (08:39→21:29)
[2019-04-01] MEDS: Metoprolol Tartrate 25 MG Tab PO SCH ×2 (08:40→21:30)
[2019-04-01] MEDS: Multivitamin Tab PO SCH (08:40)
[2019-04-01] MEDS: Rifampin 300 MG Cap PO SCH (08:40)
[2019-04-01] MEDS: Lutein/Minerals/Vitamin C/Vitamin E Acetate Cap PO SCH ×2 (08:40→21:31)
[2019-04-01] MEDS: Sodium Chloride 0.9% 10 ML Syringe FLUSH PRN (09:42)
[2019-04-01] MEDS: Latanoprost 0.005% Ophth Soln 2.5 ML Bottle EYEBOTH SCH (21:29)
[2019-04-01] MEDS: Mirtazapine 15 MG Tab PO SCH (21:31)
[2019-04-01] MEDS: Fat Emulsion 250 ML IV SCH (21:32)
[2019-04-02] MEDS: AA 5%/Calcium/D15W/Lytes 1,000 ML IV SCH ×2 (06:20→20:11)
[2019-04-02] MEDS: Multivitamin Tab PO SCH (08:51)
[2019-04-02] MEDS: Lutein/Minerals/Vitamin C/Vitamin E Acetate Cap PO SCH ×2 (08:51→20:27)
[2019-04-02] MEDS: Metoprolol Tartrate 25 MG Tab PO SCH ×2 (08:51→20:26)
[2019-04-02] MEDS: Rifampin 300 MG Cap PO SCH (08:51)
[2019-04-02] MEDS: Brimonidine 0.2% Ophth Soln 5 ML Bottle EYEBOTH SCH ×3 (08:51→20:24)
[2019-04-02] MEDS: Acetaminophen 325 MG Tab PO SCH ×3 (08:52→20:25)
[2019-04-02] MEDS: Sodium Chloride 0.9% 10 ML Syringe FLUSH PRN ×2 (09:55→20:09)
[2019-04-02] MEDS: Fat Emulsion 250 ML IV SCH (20:16)
[2019-04-02] MEDS: Latanoprost 0.005% Ophth Soln 2.5 ML Bottle EYEBOTH SCH (20:25)
[2019-04-02] MEDS: Mirtazapine 15 MG Tab PO SCH (20:26)
[2019-04-03] MEDS: Sodium Chloride 0.9% 10 ML Syringe FLUSH PRN ×4 (07:32→21:40)
[2019-04-03] MEDS: AA 5%/Calcium/D15W/Lytes 1,000 ML IV SCH ×2 (09:02→21:37)
[2019-04-03] MEDS: Acetaminophen 325 MG Tab PO SCH ×3 (09:04→21:27)
[2019-04-03] MEDS: Rifampin 300 MG Cap PO SCH (09:04)
[2019-04-03] MEDS: Metoprolol Tartrate 25 MG Tab PO SCH ×2 (09:04→21:28)
[2019-04-03] MEDS: Lutein/Minerals/Vitamin C/Vitamin E Acetate Cap PO SCH ×2 (09:04→21:27)
[2019-04-03] MEDS: Brimonidine 0.2% Ophth Soln 5 ML Bottle EYEBOTH SCH ×3 (09:04→21:26)
[2019-04-03] MEDS: Multivitamin Tab PO SCH (09:05)
[2019-04-03] MEDS: Mirtazapine 15 MG Tab PO SCH (21:27)
[2019-04-03] MEDS: Latanoprost 0.005% Ophth Soln 2.5 ML Bottle EYEBOTH SCH (21:27)
[2019-04-04] MEDS: Sodium Chloride 0.9% 10 ML Syringe FLUSH PRN ×2 (07:47→09:02)
[2019-04-04] MEDS: Acetaminophen 325 MG Tab PO SCH ×3 (08:13→20:49)
[2019-04-04] MEDS: Lutein/Minerals/Vitamin C/Vitamin E Acetate Cap PO SCH ×2 (08:14→20:48)
[2019-04-04] MEDS: Brimonidine 0.2% Ophth Soln 5 ML Bottle EYEBOTH SCH ×3 (08:14→20:46)
[2019-04-04] MEDS: Rifampin 300 MG Cap PO SCH (08:14)
[2019-04-04] MEDS: Multivitamin Tab PO SCH (08:14)
[2019-04-04] MEDS: Metoprolol Tartrate 25 MG Tab PO SCH ×2 (08:14→20:48)
--- NOTE | 2019-04-04 09:00 | PCM.PN ---
- General Info Date of Service: 04/04/19 Admission Dx/Problem (Free Text): Patient says he is doing well. He says sometimes he is a little pain in his left lower abdomen but not today. He says he is having almost every day. He denies fevers, chills, nausea, vomiting. Says his rehabilitation is going well and his appetite is getting better. - Patient Data Vitals - Most Recent: Last Vital Signs Temp 98.6 F 04/03/19 20:10 Pulse 88 04/04/19 08:14 Resp 18 04/03/19 20:10 BP 119/58 L 04/04/19 08:14 Pulse Ox 97 04/03/19 20:10 Weight - Most Recent: 149 lb 4 oz I&O - Last 24 Hours: Intake & Output 04/03/19 04/04/19 04/04/19 22:59 06:59 14:59 Intake Total 730 664 Output Total 650 825 Balance 80 -161 Lab Results Last 24 Hours: Laboratory Results - last 24 hr 04/02/19 04/04/19 Range/Units 06:00 05:34 POC Glucose 152 H 146 H (80-116) mg/dL Med Orders - Current: Current Medications Acetaminophen (Tylenol) 650 mg PO TID [facility] Last Admin: 04/04/19 08:13 Dose: 650 mg Brimonidine Tartrate (Alphagan 0.2% Ophth Soln) 0 ml EYEBOTH TID [facility] Last Admin: 04/04/19 08:14 Dose: 1 drop Heparin Sodium (Porcine) (Heparin Lock Flush 100 Units/Ml) 300 units FLUSH ASDIRECTED PRN PRN Reason: AFTER USE Last Admin: 03/25/19 06:20 Dose: 300 units Fat Emulsion Intravenous (Intralipid 20%) 250 mls @ 25 mls/hr IV MoTuWeThFr@ 2100 [facility] Last Admin: 04/02/19 20:16 Dose: 25 mls/hr Amino Ac/Electrol/Dextrose/Calcium (Clinimix E 15) 1,000 mls @ 84 mls/hr IV Q12H [facility] Last Admin: 04/03/19 21:37 Dose: 84 mls/hr Vancomycin HCl 1 gm/ Sodium (Chloride) 250 mls @ 250 mls/hr IV Q24H [facility] Stop: 04/10/19 10:00 Last Admin: 04/04/19 07:50 Dose: 250 mls/hr Latanoprost (Xalatan 0.005% Ophth Soln) 0 ml EYEBOTH BEDTIME [facility] Last Admin: 04/03/19 21:27 Dose: 1 drop Metoprolol Tartrate (Lopressor) 25 mg PO BID [facility] Last Admin: 04/04/19 08:14 Dose: 25 mg Mirtazapine (Remeron) 15 mg PO BEDTIME [facility] Last Admin: 04/03/19 21:27 Dose: 15 mg Multivitamins/Minerals/Vitamin C (Tab-A-Dawna) 1 tab PO DAILY [facility] Last Admin: 04/04/19 08:14 Dose: 1 tab Rifampin (Rifampin) 600 mg PO DAILY [facility] Last Admin: 04/04/19 08:14 Dose: 600 mg Senna/Docusate Sodium (Senna Plus) 1 tab PO BID PRN PRN Reason: constipation Last Admin: 03/24/19 15:06 Dose: 1 tab Sodium Chloride (Saline Flush) 10 ml FLUSH ASDIRECTED PRN PRN Reason: Keep Vein Open Last Admin: 04/04/19 07:47 Dose: 10 ml Trimethoprim/Sulfamethoxazole (Septra Ds) 1 tab PO DAILY [facility] Vancomycin HCl (Pharmacy To Dose - Vancomycin) 1 dose .XX ASDIRECTED [facility] Vit C/Vit E/Zinc/Copper/Lutein (Ocuvite Lutein) 1 each PO BID [facility] Last Admin: 04/04/19 08:14 Dose: 1 each Discontinued Medications Acetaminophen (Tylenol) 650 mg PO Q6H PRN PRN Reason: Pain Last Admin: 03/04/19 23:43 Dose: 650 mg Amlodipine Besylate (Norvasc) 10 mg PO DAILY [facility] Last Admin: 03/20/19 09:14 Dose: 10 mg Amlodipine Besylate (Norvasc) 5 mg PO DAILY [facility] Last Admin: 03/24/19 09:03 Dose: 5 mg Enoxaparin Sodium (Lovenox) 40 mg SUBCUT Q24H [facility] Stop: 03/31/19 14:01 Last Admin: 03/31/19 13:48 Dose: 40 mg Furosemide (Lasix) 10 mg PO BIDDIURETIC [facility] Last Admin: 03/11/19 08:54 Dose: 10 mg Heparin Sodium (Porcine) (Heparin Lock Flush 100 Units/Ml) 300 units FLUSH Q24H [facility] Last Admin: 04/01/19 11:04 Dose: Not Given Vancomycin HCl 750 mg/Vancomycin HCl 500 mg/ Sodium Chloride 250 mls @ 166.667 mls/hr IV Q24H [facility] Stop: 04/10/19 12:00 Last Admin: 03/17/19 09:22 Dose: 166.667 mls/hr Amino Ac/Electrol/Dextrose/Calcium (Clinimix E 5/15) 1,000 mls @ 42 mls/hr IV ONETIME ONE Stop: 03/12/19 10:48 Last Admin: 03/11/19 11:40 Dose: 42 mls/hr Amino Ac/Electrol/Dextrose/Calcium (Clinimix E 5/15) 1,000 mls @ 84 mls/hr IV Q24H [facility] Last Admin: 03/16/19 20:27 Dose: 84 mls/hr Fat Emulsion Intravenous (Intralipid 20%) 250 mls @ 22 mls/hr IV MoWeFr@2100 [facility] Last Admin: 03/15/19 21:17 Dose: 22 mls/hr Vancomycin HCl 1 gm/ Sodium (Chloride) 250 mls @ 250 mls/hr IV Q24H [facility] Vancomycin HCl 1 gm/ Sodium (Chloride) 250 mls @ 250 mls/hr IV Q24H [facility] Stop: 03/18/19 12:00 Last Admin: 03/18/19 08:21 Dose: 250 mls/hr Vancomycin HCl 1 gm/ Sodium (Chloride) 250 mls @ 250 mls/hr IV Q24H [facility] Stop: 04/10/19 12:00 Last Admin: 03/19/19 06:29 Dose: 250 mls/hr Mirtazapine (Remeron) 7.5 mg PO BEDTIME [facility] Last Admin: 03/14/19 20:38 Dose: 7.5 mg Senna/Docusate Sodium (Senna Plus) 2 tab PO BID PRN PRN Reason: CONSTIPATION Last Admin: 03/07/19 15:23 Dose: 2 tab Senna/Docusate Sodium (Senna Plus) 1 tab PO BID [facility] Last Admin: 03/08/19 16:44 Dose: Not Given Simvastatin (Zocor) 40 mg PO BEDTIME [facility] Last Admin: 03/19/19 20:30 Dose: 40 mg Tramadol HCl (Ultram) 50 mg PO Q6H PRN PRN Reason: Pain Last Admin: 03/24/19 09:56 Dose: 50 mg - Exam General: Alert, Oriented, Cooperative Lungs: Clear to Auscultation, Normal Respiratory Effort Cardiovascular: Regular Rate, Regular Rhythm, No Murmurs - Problem List & Annotations (1) MRSA bacteremia SNOMED Code(s): 97735569242201916 Code(s): R78.81 - BACTEREMIA Status: Acute Current Visit: Yes Annotation/Comment:: 6 weeks of IV vancomycin and po rifampin, will complete Apr 15 (2) Septic arthritis of hip SNOMED Code(s): 278251618 Code(s): M00.9 - PYOGENIC ARTHRITIS, UNSPECIFIED Status: Acute Current Visit: Yes Qualifiers: Septic arthritis organism: staphylococcal (3) Weakness SNOMED Code(s): 73142983 Code(s): R53.1 - WEAKNESS Status: Acute Current Visit: Yes Annotation/ Comment:: improving (4) Fever SNOMED Code(s): 356440316 Code(s): R50.9 - FEVER, UNSPECIFIED Status: Acute Current Visit: Yes (5) Anorexia SNOMED Code(s): 83386463 Code(s): R63.0 - ANOREXIA Status: Acute Current Visit: Yes - Problem List Review Problem List Initiated/Reviewed/Updated: Yes - Plan Plan:: 1. Continue current care.
[2019-04-04] MEDS: AA 5%/Calcium/D15W/Lytes 1,000 ML IV SCH ×3 (10:43→22:57)
[2019-04-04] MEDS: Latanoprost 0.005% Ophth Soln 2.5 ML Bottle EYEBOTH SCH (20:46)
[2019-04-04] MEDS: Mirtazapine 15 MG Tab PO SCH (20:49)
[2019-04-05] MEDS: Sodium Chloride 0.9% 10 ML Syringe FLUSH PRN ×2 (08:00→09:55)
[2019-04-05] MEDS: Brimonidine 0.2% Ophth Soln 5 ML Bottle EYEBOTH SCH ×3 (08:17→20:20)
[2019-04-05] MEDS: Multivitamin Tab PO SCH (08:18)
[2019-04-05] MEDS: Metoprolol Tartrate 25 MG Tab PO SCH ×2 (08:18→20:28)
[2019-04-05] MEDS: Lutein/Minerals/Vitamin C/Vitamin E Acetate Cap PO SCH ×2 (08:19→20:33)
[2019-04-05] MEDS: Rifampin 300 MG Cap PO SCH (08:20)
[2019-04-05] MEDS: Acetaminophen 325 MG Tab PO SCH ×3 (08:20→20:34)
[2019-04-05] MEDS: AA 5%/Calcium/D15W/Lytes 1,000 ML IV SCH ×3 (11:12→23:23)
[2019-04-05] MEDS: Fat Emulsion 250 ML IV SCH (20:21)
[2019-04-05] MEDS: Mirtazapine 15 MG Tab PO SCH (20:33)
[2019-04-05] MEDS: Latanoprost 0.005% Ophth Soln 2.5 ML Bottle EYEBOTH SCH (20:34)
[2019-04-06] MEDS: Sodium Chloride 0.9% 10 ML Syringe FLUSH PRN (08:00)
[2019-04-06] MEDS: Brimonidine 0.2% Ophth Soln 5 ML Bottle EYEBOTH SCH ×3 (08:01→20:44)
[2019-04-06] MEDS: Lutein/Minerals/Vitamin C/Vitamin E Acetate Cap PO SCH ×2 (08:01→20:46)
[2019-04-06] MEDS: Rifampin 300 MG Cap PO SCH (08:01)
[2019-04-06] MEDS: Metoprolol Tartrate 25 MG Tab PO SCH ×2 (08:02→20:45)
[2019-04-06] MEDS: Multivitamin Tab PO SCH (08:02)
[2019-04-06] MEDS: Acetaminophen 325 MG Tab PO SCH ×3 (08:02→20:46)
[2019-04-06] MEDS: AA 5%/Calcium/D15W/Lytes 1,000 ML IV SCH (13:10)
[2019-04-06] MEDS: Fat Emulsion 250 ML IV SCH (20:43)
[2019-04-06] MEDS: Mirtazapine 15 MG Tab PO SCH (20:46)
[2019-04-06] MEDS: Latanoprost 0.005% Ophth Soln 2.5 ML Bottle EYEBOTH SCH (20:47)
[2019-04-07] MEDS: AA 5%/Calcium/D15W/Lytes 1,000 ML IV SCH ×2 (01:38→15:28)
[2019-04-07] MEDS: Brimonidine 0.2% Ophth Soln 5 ML Bottle EYEBOTH SCH ×3 (08:02→20:34)
[2019-04-07] MEDS: Metoprolol Tartrate 25 MG Tab PO SCH ×2 (08:02→20:35)
[2019-04-07] MEDS: Multivitamin Tab PO SCH (08:03)
[2019-04-07] MEDS: Rifampin 300 MG Cap PO SCH (08:03)
[2019-04-07] MEDS: Acetaminophen 325 MG Tab PO SCH ×3 (08:03→20:37)
[2019-04-07] MEDS: Sodium Chloride 0.9% 10 ML Syringe FLUSH PRN (08:06)
[2019-04-07] MEDS: Lutein/Minerals/Vitamin C/Vitamin E Acetate Cap PO SCH ×2 (09:00→20:36)
[2019-04-07] MEDS: Fat Emulsion 250 ML IV SCH (20:33)
[2019-04-07] MEDS: Latanoprost 0.005% Ophth Soln 2.5 ML Bottle EYEBOTH SCH (20:34)
[2019-04-07] MEDS: Mirtazapine 15 MG Tab PO SCH (20:37)
[2019-04-08] MEDS: AA 5%/Calcium/D15W/Lytes 1,000 ML IV SCH ×2 (03:45→17:52)
[2019-04-08] MEDS: Brimonidine 0.2% Ophth Soln 5 ML Bottle EYEBOTH SCH ×3 (08:39→20:23)
[2019-04-08] MEDS: Multivitamin Tab PO SCH (08:40)
[2019-04-08] MEDS: Rifampin 300 MG Cap PO SCH (08:41)
[2019-04-08] MEDS: Lutein/Minerals/Vitamin C/Vitamin E Acetate Cap PO SCH ×2 (08:41→20:23)
[2019-04-08] MEDS: Acetaminophen 325 MG Tab PO SCH ×3 (08:41→20:23)
[2019-04-08] MEDS: Metoprolol Tartrate 25 MG Tab PO SCH ×2 (08:44→20:20)
[2019-04-08] MEDS: Sodium Chloride 0.9% 10 ML Syringe FLUSH PRN (17:56)
[2019-04-08] MEDS: Latanoprost 0.005% Ophth Soln 2.5 ML Bottle EYEBOTH SCH (20:23)
[2019-04-08] MEDS: Mirtazapine 15 MG Tab PO SCH (20:23)
[2019-04-08] MEDS: Fat Emulsion 250 ML IV SCH (20:24)
[2019-04-09] MEDS: AA 5%/Calcium/D15W/Lytes 1,000 ML IV SCH (06:00)
[2019-04-09] MEDS: Sodium Chloride 0.9% 10 ML Syringe FLUSH PRN ×2 (09:16→10:20)
[2019-04-09] MEDS: Brimonidine 0.2% Ophth Soln 5 ML Bottle EYEBOTH SCH ×3 (09:20→20:09)
[2019-04-09] MEDS: Acetaminophen 325 MG Tab PO SCH ×3 (09:22→20:07)
[2019-04-09] MEDS: Lutein/Minerals/Vitamin C/Vitamin E Acetate Cap PO SCH ×2 (09:22→20:11)
[2019-04-09] MEDS: Multivitamin Tab PO SCH (09:22)
[2019-04-09] MEDS: Rifampin 300 MG Cap PO SCH (09:22)
[2019-04-09] MEDS: Metoprolol Tartrate 25 MG Tab PO SCH ×2 (09:22→20:08)
[2019-04-09] MEDS ORDERED: AA 5%/Calcium/D15W/Lytes 1,000 ML IV ONE ×2 (10:00→16:00)
[2019-04-09] MEDS ORDERED: Iopamidol 755 Mg/ML 75 ML Bottle IV ONE (12:48)
--- NOTE | 2019-04-09 15:26 | CT ---
INDICATION: Post IV therapy left hip infection, question abscess. CT LOWER EXTREMITY, LEFT, WITH CONTRAST: Spiral 3.75 mm axial sections were obtained through the hips with sagittal and coronal reconstructions, utilizing 75 mL Isovue 370 at 1.6 mL/second, 04/09/19, and compared with hip x-ray from . Total exam DLP = 743.46 mGy-cm. There appears to be an abscess superior to the greater trochanter on the left, which may be extending into the hip joint space with gas bubbles present, compatible with a gas-forming organism infection, measuring axially approximately 22 x 34 mm, coronally approximately 22 x 35 mm. Additionally, there is an oval low density abnormality with surrounding increased density measuring 17 x 29 mm in the iliopsoas muscle on the left, seen initially much smaller on axial image #14 at the iliac wing and extending inferiorly through the iliopsoas area into the area of the hip joint, also compatible with an abscess. No gas bubbles were seen in that area, and this also could represent a hematoma. No free fluid collections were noted intraperitoneally or retroperitoneally. Calcifications are noted in the iliac and femoral arteries. No evidence of free air or bowel obstruction was seen. Degenerative changes and disk disease are noted in the lumbosacral spine visualized. IMPRESSION: 1. Gas-forming organism infection suggested with abscess superior to the left greater trochanter and likely extending into the hip joint space on the left and measured a maximum of approximately 3 to 3.5 cm. 2. Abnormality in the iliopsoas muscle on the left, etiology indeterminate but could represent abscess formation or less likely hematoma. The apparent contrast enhancement around the low density abnormality in the iliopsoas suggests an inflammatory process - abscess extending over a long portion of the iliopsoas into the area of the left hip joint. Report faxed to [phone] on 04/09/19 at 1525 hours. [facility]
[2019-04-09] MEDS: Latanoprost 0.005% Ophth Soln 2.5 ML Bottle EYEBOTH SCH (20:06)
[2019-04-09] MEDS: Mirtazapine 15 MG Tab PO SCH (20:08)
[2019-04-09] MEDS: Fat Emulsion 250 ML IV SCH (20:19)
[2019-04-10] MEDS: AA 5%/Calcium/D15W/Lytes 1,000 ML IV SCH (00:45)
[2019-04-10] MEDS: Acetaminophen 325 MG Tab PO SCH ×3 (08:16→20:27)
[2019-04-10] MEDS: Lutein/Minerals/Vitamin C/Vitamin E Acetate Cap PO SCH ×2 (08:17→20:27)
[2019-04-10] MEDS: Multivitamin Tab PO SCH (08:17)
[2019-04-10] MEDS: Brimonidine 0.2% Ophth Soln 5 ML Bottle EYEBOTH SCH ×3 (08:17→20:26)
[2019-04-10] MEDS: Rifampin 300 MG Cap PO SCH (08:17)
[2019-04-10] MEDS: Metoprolol Tartrate 25 MG Tab PO SCH ×2 (08:31→20:27)
[2019-04-10] MEDS: Sodium Chloride 0.9% 10 ML Syringe FLUSH PRN (08:34)
[2019-04-10] MEDS: Mirtazapine 15 MG Tab PO SCH (20:27)
[2019-04-10] MEDS: Latanoprost 0.005% Ophth Soln 2.5 ML Bottle EYEBOTH SCH (20:27)
[2019-04-11] MEDS: Acetaminophen 325 MG Tab PO SCH ×3 (08:27→20:00)
[2019-04-11] MEDS: Brimonidine 0.2% Ophth Soln 5 ML Bottle EYEBOTH SCH ×3 (08:27→19:59)
[2019-04-11] MEDS: Rifampin 300 MG Cap PO SCH (08:27)
[2019-04-11] MEDS: Metoprolol Tartrate 25 MG Tab PO SCH ×2 (08:27→19:59)
[2019-04-11] MEDS: Sulfamethoxazole/Trimethoprim 800-160 MG Tab PO SCH (08:27)
[2019-04-11] MEDS: Multivitamin Tab PO SCH (08:28)
[2019-04-11] MEDS: Lutein/Minerals/Vitamin C/Vitamin E Acetate Cap PO SCH ×2 (08:28→20:00)
--- NOTE | 2019-04-11 12:02 | PCM.DCSUM1 ---
Discharge Summary - Hospital Course HPI Initial Comments: Patient is 88 yr old male who was admitted from [facility] for IV antibiotics and rehabilitation treatment after his acute stay for septic left hip, pneumonia. Diagnosis: Stroke: No - Discharge Data Discharge Date: 04/12/19 Discharge Disposition: DC/Tfer to SNF 03 Condition: Stable - Referral to Home Health Primary Care Physician: Gabriele Madrigal MD - Discharge Diagnosis/Problem(s) (1) MRSA bacteremia SNOMED Code(s): 10067982823269459 ICD Code: R78.81 - BACTEREMIA Status: Resolved Current Visit: Yes Problem Details: 6 weeks of IV vancomycin and po rifampin, will complete Apr 15 (2) Septic arthritis of hip SNOMED Code(s): 917899862 ICD Code: M00.9 - PYOGENIC ARTHRITIS, UNSPECIFIED Status: Acute Current Visit: Yes Problem Details: completed IV antibiotics Qualifiers: Septic arthritis organism: staphylococcal (3) Weakness SNOMED Code(s): 96820684 ICD Code: R53.1 - WEAKNESS Status: Acute Current Visit: Yes (4) HTN (hypertension) SNOMED Code(s): 50048957 ICD Code: I10 - ESSENTIAL (PRIMARY) HYPERTENSION Status: Chronic Current Visit: Yes Qualifiers: Hypertension type: essential hypertension Qualified Code(s): I10 - Essential (primary) hypertension (5) CAD (coronary artery disease) SNOMED Code(s): 96245702 ICD Code: I25.10 - ATHSCL HEART DISEASE OF [place] CORONARY ARTERY W/O ANG PCTRS Status: Acute Current Visit: Yes (6) Neurogenic bladder SNOMED Code(s): 699131858 ICD Code: N31.9 - NEUROMUSCULAR DYSFUNCTION OF BLADDER, UNSPECIFIED Status : Acute Current Visit: Yes (7) Indwelling Mi catheter present SNOMED Code(s): 968388610 ICD Code: Z96.0 - PRESENCE OF UROGENITAL IMPLANTS Status: Acute Current Visit: Yes Problem Details: due to neurogenic bladder (8) Failure to thrive in adult SNOMED Code(s): 038447435 ICD Code: R62.7 - ADULT FAILURE TO THRIVE Status: Acute Current Visit: Yes (9) Palliative care status SNOMED Code(s): 613167253 ICD Code: Z51.5 - ENCOUNTER FOR PALLIATIVE CARE Status: Acute Current Visit: Yes - Patient Summary/Data Consults: Consultations 03/04/19 12:34 OT Evaluation and Treatment [CONS] Routine Please Evaluate and Treat. OT Reason for Consult: ADL's This query below is only for informational purposes and is not editable. PT Evaluation and Treatment [CONS] Routine Please Evaluate and Treat. PT Reason for Consult: Ambulation This query below is only for informational purposes and is not editable. 03/08/19 07:00 Consult to Dietary [Consult to International Accounting Manager] [CONS] Routine Comment: Physician Instructions: Quantity: Reason for Consult: wound healing, deconditioning, malnutrition Hospital Course: He was admitted for IV antibiotics and rehab therapies. He completed his IV Vancomycin 04/10/2019, continued on Rifampin and transitioned to Sulfamethiazole/ TMP per Infectious Disease which he last saw on 03/19. He has been doing PT/OT throughout stay. He had significant edema of RUE after admission, had ultrasound that ruled out DVT. Labs drawn which showed critically low albumin also had poor oral intake, so TPN was started 03/11/2019 and discontinued 2018. He was started on Mirtazapine to help stimulate his appetite and help with sleep. Patient had delirium with dementia during stay, sometimes refusing to work with PT/OT. Attempted a few times to pull his urinary catheter, did well with clamping but as soon as we pulled it then he would have large amounts of residual so reinserted Mi catheter. Had a fever the week of 15 of March , chest x-ray, labs, cultures done which showed no new infections. Family has elected to go to [facility] with hospice on 04/12/2019 for palliative care. - Patient Instructions Diet: Regular Diet as Tolerated Activity: As Tolerated - Discharge Plan *PRESCRIPTION DRUG MONITORING PROGRAM REVIEWED*: No *COPY OF PRESCRIPTION DRUG MONITORING REPORT IN PATIENT JOSE: No Prescriptions/Med Rec: Mirtazapine [Remeron] 15 mg PO BEDTIME 30 Days #30 tablet Home Medications: Home Meds Metoprolol Tartrate 25 mg PO BID 12/01/16 [History] Sennosides/Docusate Sodium [Senna-S] 2 tab PO BID 03/04/19 [History] Acetaminophen [Tylenol] 650 mg PO TID tablet 04/12/19 [Rx] Brimonidine [Alphagan 0.2% Ophth Soln] 0 ml EYEBOTH TID bottle 04/12/19 [Rx] Latanoprost [Xalatan 0.005% Ophth Soln] 0 ml EYEBOTH BEDTIME bottle 04/12/19 [ Rx] Mirtazapine [Remeron] 15 mg PO BEDTIME 30 Days #30 tablet 04/12/19 [Rx] Oxygen Therapy Mode: Room Air Patient Handouts: Contact Precautions, Total Hip Replacement, [id number], MRSA Infection, Adult, Fall Prevention in Hospitals, Adult, Venous Thromboembolism Prevention Referrals: Gabriele Madrigal MD [Primary Care Provider] - - Discharge Summary/Plan Comment DC Time >30 min.: Yes - Patient Data Vitals - Most Recent: Last Vital Signs Temp 36.4 C 04/11/19 08:00 Pulse 90 04/11/19 08:27 Resp 16 04/11/19 08:00 BP 127/71 04/11/19 08:27 Pulse Ox 95 04/11/19 08:00 Weight - Most Recent: 68.855 kg I&O - Last 24 hours: Intake & Output 04/10/19 04/11/19 04/11/19 22:59 06:59 14:59 Intake Total 583 Output Total 850 Balance 583 -850 Lab Results - Last 24 hrs: Laboratory Results - last 24 hr 04/11/19 Range/Units 06:18 POC Glucose 108 (80-116) mg/dL Med Orders - Current: Current Medications Acetaminophen (Tylenol) 650 mg PO TID [facility] Last Admin: 04/11/19 08:27 Dose: 650 mg Brimonidine Tartrate (Alphagan 0.2% Ophth Soln) 0 ml EYEBOTH TID [facility] Last Admin: 04/11/19 08:27 Dose: 1 drop Heparin Sodium (Porcine) (Heparin Lock Flush 100 Units/Ml) 300 units FLUSH ASDIRECTED PRN PRN Reason: AFTER USE Last Admin: 03/25/19 06:20 Dose: 300 units Latanoprost (Xalatan 0.005% Ophth Soln) 0 ml EYEBOTH BEDTIME [facility] Last Admin: 04/10/19 20:27 Dose: 1 drop Metoprolol Tartrate (Lopressor) 25 mg PO BID [facility] Last Admin: 04/11/19 08:27 Dose: 25 mg Mirtazapine (Remeron) 15 mg PO BEDTIME [facility] Last Admin: 04/10/19 20:27 Dose: 15 mg Multivitamins/Minerals/Vitamin C (Tab-A-Dawna) 1 tab PO DAILY [facility] Last Admin: 04/11/19 08:28 Dose: 1 tab Rifampin (Rifampin) 600 mg PO DAILY [facility] Last Admin: 04/11/19 08:27 Dose: 600 mg Senna/Docusate Sodium (Senna Plus) 1 tab PO BID PRN PRN Reason: constipation Last Admin: 03/24/19 15:06 Dose: 1 tab Sodium Chloride (Saline Flush) 10 ml FLUSH ASDIRECTED PRN PRN Reason: Keep Vein Open Last Admin: 04/10/19 08:34 Dose: 10 ml Trimethoprim/Sulfamethoxazole (Septra Ds) 1 tab PO DAILY [facility] Last Admin: 04/11/19 08:27 Dose: 1 tab Vit C/Vit E/Zinc/Copper/Lutein (Ocuvite Lutein) 1 each PO BID [facility] Last Admin: 04/11/19 08:28 Dose: 1 each Discontinued Medications Acetaminophen (Tylenol) 650 mg PO Q6H PRN PRN Reason: Pain Last Admin: 03/04/19 23:43 Dose: 650 mg Amlodipine Besylate (Norvasc) 10 mg PO DAILY [facility] Last Admin: 03/20/19 09:14 Dose: 10 mg Amlodipine Besylate (Norvasc) 5 mg PO DAILY [facility] Last Admin: 03/24/19 09:03 Dose: 5 mg Enoxaparin Sodium (Lovenox) 40 mg SUBCUT Q24H [facility] Stop: 03/31/19 14:01 Last Admin: 03/31/19 13:48 Dose: 40 mg Furosemide (Lasix) 10 mg PO BIDDIURETIC [facility] Last Admin: 03/11/19 08:54 Dose: 10 mg Heparin Sodium (Porcine) (Heparin Lock Flush 100 Units/Ml) 300 units FLUSH Q24H [facility] Last Admin: 04/01/19 11:04 Dose: Not Given Vancomycin HCl 750 mg/Vancomycin HCl 500 mg/ Sodium Chloride 250 mls @ 166.667 mls/hr IV Q24H [facility] Stop: 04/10/19 12:00 Last Admin: 03/17/19 09:22 Dose: 166.667 mls/hr Amino Ac/Electrol/Dextrose/Calcium (Clinimix E 12/09) 1,000 mls @ 42 mls/hr IV ONETIME ONE Stop: 03/12/19 10:48 Last Admin: 03/11/19 11:40 Dose: 42 mls/hr Amino Ac/Electrol/Dextrose/Calcium (Clinimix E 5/15) 1,000 mls @ 84 mls/hr IV Q24H [facility] Last Admin: 03/16/19 20:27 Dose: 84 mls/hr Fat Emulsion Intravenous (Intralipid 20%) 250 mls @ 22 mls/hr IV [id number]@2100 [facility] Last Admin: 03/15/19 21:17 Dose: 22 mls/hr Fat Emulsion Intravenous (Intralipid 20%) 250 mls @ 25 mls/hr IV MoTuWeThFr@ 2100 [facility] Stop: 04/10/19 08:00 Last Admin: 04/09/19 20:19 Dose: 25 mls/hr Amino Ac/Electrol/Dextrose/Calcium (Clinimix E 5/15) 1,000 mls @ 84 mls/hr IV Q12H [facility] Stop: 04/09/19 16:00 Last Admin: 04/10/19 00:45 Dose: Not Given Vancomycin HCl 1 gm/ Sodium (Chloride) 250 mls @ 250 mls/hr IV Q24H [facility] Vancomycin HCl 1 gm/ Sodium (Chloride) 250 mls @ 250 mls/hr IV Q24H [facility] Stop: 03/18/19 12:00 Last Admin: 03/18/19 08:21 Dose: 250 mls/hr Vancomycin HCl 1 gm/ Sodium (Chloride) 250 mls @ 250 mls/hr IV Q24H [facility] Stop: 04/10/19 12:00 Last Admin: 03/19/19 06:29 Dose: 250 mls/hr Vancomycin HCl 1 gm/ Sodium (Chloride) 250 mls @ 250 mls/hr IV Q24H [facility] Stop: 04/10/19 10:00 Last Admin: 04/10/19 08:33 Dose: 250 mls/hr Amino Ac/Electrol/Dextrose/Calcium (Clinimix E 5/15) 1,000 mls @ 42 mls/hr IV ONETIME ONE Stop: 04/10/19 15:48 Last Admin: 04/09/19 20:02 Dose: 42 mls/hr Iopamidol (Isovue-370 (76%)) 75 ml IV ONETIME ONE Stop: 04/09/19 12:49 Last Admin: 04/09/19 14:13 Dose: 75 ml Mirtazapine (Remeron) 7.5 mg PO BEDTIME [facility] Last Admin: 03/14/19 20:38 Dose: 7.5 mg Senna/Docusate Sodium (Senna Plus) 2 tab PO BID PRN PRN Reason: CONSTIPATION Last Admin: 03/07/19 15:23 Dose: 2 tab Senna/Docusate Sodium (Senna Plus) 1 tab PO BID [facility] Last Admin: 03/08/19 16:44 Dose: Not Given Simvastatin (Zocor) 40 mg PO BEDTIME [facility] Last Admin: 03/19/19 20:30 Dose: 40 mg Tramadol HCl (Ultram) 50 mg PO Q6H PRN PRN Reason: Pain Last Admin: 03/24/19 09:56 Dose: 50 mg Vancomycin HCl (Pharmacy To Dose - Vancomycin) 1 dose .XX ASDIRECTED [facility] Stop: 04/10/19 10:00 - Exam General: Reports: Alert, Oriented (person), Cooperative, No Acute Distress Lungs: Reports: Clear to Auscultation, Normal Respiratory Effort Cardiovascular: Reports: Regular Rate, Regular Rhythm GI/Abdominal Exam: Normal Bowel Sounds, Soft, Non-Tender, No Distention Extremities: No Pedal Edema Skin: Reports: Warm Psy/Mental Status: Reports: Normal Affect, Normal Mood
[2019-04-11] MEDS: Mirtazapine 15 MG Tab PO SCH (20:00)
[2019-04-11] MEDS: Latanoprost 0.005% Ophth Soln 2.5 ML Bottle EYEBOTH SCH (20:01)
[2019-04-12] MEDS: Brimonidine 0.2% Ophth Soln 5 ML Bottle EYEBOTH SCH (08:13)
[2019-04-12] MEDS: Sulfamethoxazole/Trimethoprim 800-160 MG Tab PO SCH (08:14)
[2019-04-12] MEDS: Lutein/Minerals/Vitamin C/Vitamin E Acetate Cap PO SCH (08:14)
[2019-04-12] MEDS: Rifampin 300 MG Cap PO SCH (08:14)
[2019-04-12] MEDS: Acetaminophen 325 MG Tab PO SCH (08:15)
[2019-04-12] MEDS: Multivitamin Tab PO SCH (08:15)
[2019-04-12] MEDS: Metoprolol Tartrate 25 MG Tab PO SCH (08:20)
[2019-04-12] MEDS ORDERED: Magnesium Hydroxide 400 MG/5 ML Susp 30 ML Cup PO ONE (08:31)
[2019-04-12] MEDS ORDERED: Tuberculin, PPD 5 Units/0.1 ML 1 ML MDV IDERM ONE (08:33)
[2019-04-12 11:49] VITALS: BP 126/87; PULSE 74
== END 2019-04-12 10:15 | DRG 559 ==
LOC: FB.MS 12:07
PROVIDERS: ADMIT Family Medicine; ATTEND Family Medicine
PROC: 02HV33Z Insertion of Infusion Device into Superior Vena Cava, Percutaneous Approach (ICD-10-PCS; principal; 2019-03-18)
DX: T84.52XA Infection and inflammatory reaction due to internal left hip prosthesis, initial encounter (principal); J18.1 Lobar pneumonia, unspecified organism; M00.052 Staphylococcal arthritis, left hip; F03.91 Unspecified dementia, unspecified severity, with behavioral disturbance; F05 Delirium due to known physiological condition; N17.9 Acute kidney failure, unspecified; Z51.5 Encounter for palliative care; I25.10 Atherosclerotic heart disease of native coronary artery without angina pectoris; N31.9 Neuromuscular dysfunction of bladder, unspecified; R62.7 Adult failure to thrive; E78.5 Hyperlipidemia, unspecified; H40.9 Unspecified glaucoma; Z96.641 Presence of right artificial hip joint; H54.7 Unspecified visual loss; I48.91 Unspecified atrial fibrillation; M13.842 Other specified arthritis, left hand; M13.841 Other specified arthritis, right hand; B95.62 Methicillin resistant Staphylococcus aureus infection as the cause of diseases classified elsewhere; I12.9 Hypertensive chronic kidney disease with stage 1 through stage 4 chronic kidney disease, or unspecified chronic kidney disease; N18.3 Chronic kidney disease, stage 3 (moderate); K63.89 Other specified diseases of intestine; H90.5 Unspecified sensorineural hearing loss; R33.9 Retention of urine, unspecified; R53.81 Other malaise; Z96.0 Presence of urogenital implants; Z79.899 Other long term (current) drug therapy; Z95.1 Presence of aortocoronary bypass graft; I25.2 Old myocardial infarction; Z86.73 Personal history of transient ischemic attack (TIA), and cerebral infarction without residual deficits; Z98.49 Cataract extraction status, unspecified eye; Z90.89 Acquired absence of other organs; Z68.23 Body mass index [BMI] 23.0-23.9, adult
CPT/HCPCS: 36415; 36569; 51701; 51702; 51798; 71045; 71046; 73701-LT; 80048; 80053; 80202; 81001; 82272; 82565; 82962; 83605; 83735; 84100; 85025; 85610; 86140; 86580; 87040; 87086; 93970; 94150; 94760; 97110-GO; 97110-GP; 97116-GP; 97161-GP; 97165-GO; 97530-GO; 97530-GP; 97535-GO; 97542-GO; A9270-GY; G0515-GO; J1642; J1650; J3370; J3490; J7050; Q9967